=== PATIENT | male | born 1960 | race African-American/Black ===

== ENCOUNTER 2018-06-20 15:58 | Inpatient (IN) | payer MEDICAID, MEDICARE ==
[~2018-06-20] VITALS: Ht 180.3 cm; Wt 80.8 kg
[~2018-06-20 15:58] MED LIST: AMLODIPINE BESY10 MG GT; DIOVAN HCT 1601 EACH PO; IBUPROFEN800 MG PO
--- NOTE | 2018-06-20 16:07 | Emergency Room Report ---
History of Present Illness General Chief Complaint: Fever Source: Medical Record, EMS Present Illness HPI Patient is a 58-year-old male sent in by nursing facility after increased fever as well as the leaking from his urinary catheter. Patient had been noted to have prior history of dilatation. Patient is tracheostomy dependent but does not currently on a ventilator. Patient also was noted to have indwelling [place] catheter which had been leaking. Patient had fever up to 101 started this morning. The patient had been having increased leaking around his catheter. Patient was not noted to be vomiting. History is limited by patient's mental status. Allergies: Coded Allergies: No Known Allergies (Unverified , 12/13/12) Patient History Past Medical History: see triage record Reviewed Nursing Documentation: PMH: Agreed; PSxH: Agreed Nursing Documentation-PMH Hx Cancer: No Hx Gastrointestinal Problems: Yes - GERD, CKD, alcoholic cirrhosis Hx Neurological Problems: Yes Hx Seizures: Yes Hx Numbness: Yes - IN BOTH KNEES AND RADIATES TO BOTH ANKLES Review of Systems All Other Systems: limited - by mental status Physical Exam Vital Signs Date Time Temp Pulse Resp B/P (MAP) Pulse Ox O2 Delivery O2 Flow Rate FiO2 06/20/18 15:40 101 20 108/77 100 T-piece 5.0 General Appearance: no apparent distress, thin, Chronically Ill Eyes: bilateral eye PERRL Neck: limited range of motion, other, tracheotomy Respiratory: no respiratory distress, rhonchi Cardiovascular #1: normal peripheral pulses, regular rate, rhythm Gastrointestinal: normal inspection, non tender, soft Musculoskeletal: decreased range of motion - contracted, heel protector on bilaterally Neurologic: alert, motor weakness, other - nonresponsive Medical Decision Making Diagnostic Impression: Primary Impression: Sepsis Additional Impressions: Pneumonia UTI (urinary tract infection) ER Course Patient presented for fever. Differential diagnosis included wasn't limited to pneumonia, urinary tract infection, drug fever, allergic reaction, sepsis, cholecystitis, among others.Because of complexity of patient's case laboratory testing and imaging studies were ordered.The laboratory testing was notable for markedly elevated white blood count consistent with sepsis. The patient started on IV antibiotics as well as IV fluids. Dr. Frandy Eagle was contacted for inpatient management. Labs Test 06/20/18 16:20 White Blood Count 27.5 K/UL (4.8-10.8) Red Blood Count 3.84 M/UL (4.70-6.10) Hemoglobin 11.2 G/DL (14.2-18.0) Hematocrit 31.8 % (42.0-52.0) Mean Corpuscular Volume 83 FL (80-99) Mean Corpuscular Hemoglobin 29.3 PG (27.0-31.0) Mean Corpuscular Hemoglobin Concent 35.3 G/DL (32.0-36.0) Red Cell Distribution Width 13.7 % (11.6-14.8) Platelet Count 283 K/UL (150-450) Mean Platelet Volume 9.9 FL (6.5-10.1) Neutrophils (%) (Auto) % (45.0-75.0) Lymphocytes (%) (Auto) % (20.0-45.0) Monocytes (%) (Auto) % (1.0-10.0) Eosinophils (%) (Auto) % (0.0-3.0) Basophils (%) (Auto) % (0.0-2.0) Differential Total Cells Counted 100 Neutrophils % (Manual) 89 % (45-75) Lymphocytes % (Manual) 9 % (20-45) Monocytes % (Manual) 2 % (1-10) Eosinophils % (Manual) 0 % (0-3) Basophils % (Manual) 0 % (0-2) Band Neutrophils 0 % (0-8) Platelet Estimate Adequate Platelet Morphology Normal Red Blood Cell Morphology Normal Urine Color Desire Urine Appearance Cloudy Urine pH 9 (4.5-8.0) Urine Specific [place] 1.010 (1.005-1.035) Urine Protein 3+ (NEGATIVE) Urine Glucose (UA) Negative (NEGATIVE) Urine Ketones Negative (NEGATIVE) Urine Blood Negative (NEGATIVE) Urine Nitrite Positive (NEGATIVE) Urine Bilirubin Negative (NEGATIVE) Urine Ictotest Negative (NEGATIVE) Urine Urobilinogen Normal MG/DL (0.0-1.0) Urine Leukocyte Esterase 3+ (NEGATIVE) Urine RBC 2-4 /HPF (0 - 0) Urine WBC 20-30 /HPF (0 - 0) Urine Squamous Epithelial Cells Few /LPF (NONE/OCC) Urine Calcium Phosphate Crystals Few /LPF (NONE) Urine Triple Phosphate Crystals Many /LPF (NONE) Urine Bacteria Moderate /HPF (NONE) Sodium Level 137 MMOL/L (136-145) Potassium Level 4.3 MMOL/L (3.5-5.1) Chloride Level 101 MMOL/L (98-107) Carbon Dioxide Level 32 MMOL/L (21-32) Anion Gap 5 mmol/L (5-15) Blood Urea Nitrogen 38 mg/dL (7-18) Creatinine 1.5 MG/DL (0.55-1.30) Estimat Glomerular Filtration Rate 58.7 mL/min (>60) Glucose Level 118 MG/DL (74-106) Lactic Acid Level 1.80 mmol/L (0.4-2.0) Calcium Level 9.6 MG/DL (8.5-10.1) Phosphorus Level 4.3 MG/DL (2.5-4.9) Magnesium Level 2.1 MG/DL (1.8-2.4) Total Bilirubin 0.3 MG/DL (0.2-1.0) Aspartate Amino Transf (AST/SGOT) 21 U/L (15-37) Alanine Aminotransferase (ALT/SGPT) 39 U/L (12-78) Alkaline Phosphatase 92 U/L (46-116) Total Creatine Kinase 106 U/L (26-308) Creatine Kinase MB < 0.5 NG/ML (0.0-3.6) Creatine Kinase MB Relative Index 0.4 Troponin I 0.000 ng/mL (0.000-0.056) Total Protein 9.4 G/DL (6.4-8.2) Albumin 2.9 G/DL (3.4-5.0) Globulin 6.5 g/dL Albumin/Globulin Ratio 0.4 (1.0-2.7) Last Vital Signs Date Time Temp Pulse Resp B/P (MAP) Pulse Ox O2 Delivery O2 Flow Rate FiO2 06/20/18 15:40 101 20 108/77 100 T-piece 5.0 Status: unchanged Disposition: ADMITTED INPATIENT Pola Lagunas MD Jun 20, 2018 16:07
[2018-06-20 16:31] VITALS: BP 113/86
[2018-06-20] MEDS ORDERED: Vancomycin 1 GM in NS 275 ML IV ONE (16:45)
[2018-06-20] MEDS ORDERED: Cefepime HCl 1 GM in NS 55 ML IV SCH (16:45)
[2018-06-20 16:55] LABS: BILIRUBIN, URINE NEGATIVE (NEGATIVE); COLOR,URINE AMBER; GLUCOSE, URINE (UA) NEGATIVE (NEGATIVE); KETONES,URINE NEGATIVE (NEGATIVE); LEUKOCYTE ESTERASE ,URINE 3+ (NEGATIVE); NITRITE,URINE POSITIVE (NEGATIVE); PH,URINE 9 (4.5-8.0); PROTEIN,URINE 3+ (NEGATIVE); UROBILINOGEN,URINE NORMAL MG/DL (0.0-1.0)
[2018-06-20 16:57] LABS: APPEARANCE,URINE CLOUDY
[2018-06-20 16:59] LABS: HEMATOCRIT 31.8 % (42.0-52.0); HEMOGLOBIN 11.2 G/DL (14.2-18.0); MEAN CORPUSCULAR VOLUME 83 FL (80-99); PLATELET COUNT 283 K/UL (150-450); RED BLOOD COUNT 3.84 M/UL (4.70-6.10); RED CELL DISTRIBUTION WIDTH 13.7 % (11.6-14.8)
[2018-06-20 17:12] LABS: WHITE BLOOD COUNT 27.5 K/UL (4.8-10.8)
[2018-06-20 17:46] LABS: ANION GAP 5 mmol/L (5-15); BLOOD UREA NITROGEN 38 mg/dL (7-18); CALCIUM 9.6 MG/DL (8.5-10.1); CARBON DIOXIDE 32 MMOL/L (21-32); CHLORIDE 101 MMOL/L (98-107); CREATININE 1.5 MG/DL (0.55-1.30); POTASSIUM 4.3 MMOL/L (3.5-5.1); SODIUM 137 MMOL/L (136-145)
[2018-06-20 17:52] LABS: ALANINE AMINOTRANSFERASE 39 U/L (12-78); ALBUMIN 2.9 G/DL (3.4-5.0); ALBUMIN/GLOBULIN RATIO 0.4 (1.0-2.7); ALKALINE PHOSPHATASE 92 U/L (46-116); ASPARTATE AMINO TRANSFERASE 21 U/L (15-37); BILIRUBIN,TOTAL 0.3 MG/DL (0.2-1.0); CKMB < 0.5 NG/ML (0.0-3.6); CREATINE KINASE 106 U/L (26-308); PHOSPHORUS 4.3 MG/DL (2.5-4.9)
[2018-06-20] MEDS ORDERED: FAMOTIDINE20 MG GT (18:06)
[2018-06-20] MEDS ORDERED: ELIQUIS5 MG GT (18:06)
[2018-06-20] MEDS ORDERED: LEVETIRACE100 MG/1 M GT (18:06)
[2018-06-20] MEDS ORDERED: CHLORHEXIDINE473 ML MM (18:06)
[2018-06-20] MEDS ORDERED: ACIDOPHILUS GT (18:06)
[2018-06-20] MEDS ORDERED: ACIDOPHILUS1 EAC7 PO (18:06)
[2018-06-20] MEDS ORDERED: FERROUS SU220 MG/51 GT (18:06)
[2018-06-20] MEDS ORDERED: MAGNESIUM OXID400 M1 GT (18:06)
[2018-06-20] MEDS ORDERED: TYLENOL EXTRA500 MG GT (18:06)
[2018-06-20] MEDS ORDERED: ACETAMINOPHEN325 M1 GT (18:06)
[2018-06-20] MEDS ORDERED: ZOFRAN4 M3 GT (18:06)
[2018-06-20] MEDS ORDERED: CARVEDILOL25 MG GT (18:06)
[2018-06-20] MEDS ORDERED: MULTI-DELYN237 ML GT (18:06)
[2018-06-20] MEDS ORDERED: NORCO 5-325 TA1 EACH GT (18:06)
[2018-06-20] MEDS ORDERED: ASCORBIC ACID500 MG GT (18:06)
[2018-06-20] MEDS ORDERED: CATAPRES0.1 MG GT (18:06)
[2018-06-20 18:38] VITALS: BP 134/88
[2018-06-20 19:22] VITALS: BP 120/76
[2018-06-20] MEDS ORDERED: Acetaminophen 650 MG SUPP RECTAL ONE (19:30)
[2018-06-20 19:45] VITALS: BP 109/78
[2018-06-20] MEDS ORDERED: Miralax 17gm pkt ORAL PRN (20:45)
[2018-06-20] MEDS ORDERED: Morphine Sulfate 2mg/ml Inj IVP PRN (20:53)
[2018-06-20] MEDS ORDERED: Albuterol/Ipratropium 3ml neb HHN PRN (20:53)
[2018-06-20 21:00] VITALS: BP 104/68
[2018-06-20] MEDS ORDERED: IPRATROPIU0.2 MG/1 M HHN (21:04)
[2018-06-20] MEDS ORDERED: Rx Monitoring Vancomycin MISC PRN (21:30)
[2018-06-20] MEDS ORDERED: levETIRAcetam 500mg/5ml Liquid GT SCH (22:00)
[2018-06-20] MEDS: Carvedilol 25mg Tab GT SCH (22:11)
[2018-06-20] MEDS: Heparin 5000 units/ml inj SUBQ SCH (22:51)
[2018-06-21] VITALS (8 sets, daily range): BP systolic 97–127; BP diastolic 70–86
[2018-06-21] MEDS ORDERED: Vancomycin 1 GM in D5W 275 ML IV SCH (00:30)
[2018-06-21 07:46] LABS: HEMATOCRIT 29.9 % (42.0-52.0); HEMOGLOBIN 9.8 G/DL (14.2-18.0); MEAN CORPUSCULAR VOLUME 83 FL (80-99); PLATELET COUNT 283 K/UL (150-450); RED BLOOD COUNT 3.58 M/UL (4.70-6.10); RED CELL DISTRIBUTION WIDTH 13.3 % (11.6-14.8)
--- NOTE | 2018-06-21 07:48 | Consultation ---
History of Present Illness General Date patient seen: Jun 21, 2018 Chief Complaint: Fever Reason for Consultation: Sepsis Present Illness HPI Mr. Torres is a 58 yo male s/p PEG and Trach who was set to the ED from his skilled nursing for fever and leakage from his chronic indwelling urinary catheter. He was found to have a fever early yesterday. He is not verbal so history is limited. He was febrile to 100.6 in the ED and had WBC count of 27.5. His UA was positive and he was started on broad spectrum abx. ID was consulted for sepsis PMHx/PSHx CKD Alcohol abuse Seizures SocHx Lives at a skilled nursing FamHx Unable to obtain due to AMS Allergies: Coded Allergies: No Known Allergies (Unverified , 12/13/12) Medication History Scheduled Amlodipine Besylate* (Amlodipine Besylate*), 10 MG GT DAILY, (Reported) Apixaban (Eliquis), 5 MG GT TWICE A DAY, (Reported) Ascorbic Acid* (Ascorbic Acid*), 500 MG GT DAILY, (Reported) Carvedilol* (Carvedilol*), 25 MG GT TWICE A DAY, (Reported) Chlorhexidine Gluconate (Chlorhexidine Gluconate), 15 ML MM Q12HR, (Reported) Famotidine (Famotidine), 20 MG GT DAILY, (Reported) Ferrous Sulfate (Ferrous Sulfate), 330 MG GT EVERY OTHER DAY, (Reported) Levetiracetam* (Levetiracetam*), 1,000 MG GT TID, (Reported) Magnesium Oxide (Magnesium Oxide), 400 MG GT DAILY, (Reported) Multivitamin Liquid* (Multi-Delyn*), 30 ML GT DAILY, (Reported) Scheduled PRN Acetaminophen* (Acetaminophen 325MG Tablet*), 650 MG GT for Mild Pain (Pain Scale 1-3), (Reported) Acetaminophen* (Tylenol Extra Strength*), 500 MG GT Q6HR PRN for Moderate Pain ( Pain Scale 4-6), (Reported) Clonidine Hcl* (Catapres*), 0.1 MG GT Q8HR PRN for For High Blood Pressure, ( Reported) Hydrocodone Bit/Acetaminophen 5-325* ([place] 5-325*), 1 TAB GT Q4HR PRN for Moderate Breakthru Pain (5-7), (Reported) Ipratropium [place] 0.5MG/2.5ML (Ipratropium [place] 0.5MG/2.5ML), 0.5 MG HHN Q6H PRN for Shortness of Breath, (Reported) Ondansetron* (Zofran*), 4 MG GT for Nausea & Vomiting, (Reported) Miscellaneous Medications Lactobacillus Acidophilus (Acidophilus), 100 MG GT, (Reported) Discontinued Medications Ibuprofen* (Motrin*), 800 MG PO DAILY, (Reported) Discontinued Reason: Pt stopped taking med Lactobacillus Acidophilus (Acidophilus), 1 EACH PO DAILY, (Reported) Discontinued Reason: Pt stopped taking med Valsartan/Hydrochlorothiazide 160-12.5MG (Diovan Hct 160-12.5 Mg Tab), 1 TAB PO DAILY, (Reported) Discontinued Reason: Pt stopped taking med Patient History Healthcare decision maker Resuscitation status Do Not Resuscitate Advanced Directive on File Review of Systems ROS Narrative Unable to obtain due to not verbal Physical Exam Last 24 Hour Vital Signs Date Time Temp Pulse Resp B/P (MAP) Pulse Ox O2 Delivery O2 Flow Rate FiO2 06/21/18 07:32 102.0 116 20 119/85 (96) 100 102.0 06/21/18 04:00 109 06/21/18 04:00 99.0 105 20 127/86 (100) 100 99.0 06/21/18 01:45 T-piece 8.0 30 06/21/18 01:45 99 T-piece 8.0 30 06/21/18 01:44 99 20 T-piece 8.0 30 06/21/18 00:00 103 06/21/18 00:00 97.9 102 20 109/81 (90) 100 97.9 06/20/18 23:23 102 06/20/18 22:11 100 104/68 06/20/18 21:25 Trach Collar 06/20/18 21:00 100.0 100 24 104/68 (80) 95 100.0 06/20/18 20:55 98 20 T-piece 8.0 30 06/20/18 20:46 99 T-piece 8.0 30 06/20/18 20:46 T-piece 8.0 30 06/20/18 20:38 100.6 100 20 109/78 100 Trach Collar 5.0 100.6 06/20/18 19:45 100.6 100 20 109/78 Trach Collar 5.0 100.6 06/20/18 19:23 100.6 06/20/18 19:22 100.6 106 22 120/76 Trach Collar 5.0 100.6 06/20/18 18:38 105 22 134/88 Trach Collar 5.0 06/20/18 16:31 99.3 104 25 113/86 Trach Collar 5.0 99.3 06/20/18 15:40 101 20 108/77 100 T-piece 5.0 Intake and Output 06/20/18 06/21/18 19:00 07:00 Intake Total 55 ml 200 ml Balance 55 ml 200 ml Intake Free Water 150 ml IV Total 55 ml Tube Feeding 50 ml # Voids 5 # Bowel Movements 1 Laboratory Tests Test 06/20/18 16:20 06/21/18 06:40 White Blood Count 27.5 K/UL (4.8-10.8) *H Pending Red Blood Count 3.84 M/UL (4.70-6.10) L Pending Hemoglobin 11.2 G/DL (14.2-18.0) L Pending Hematocrit 31.8 % (42.0-52.0) L Pending Mean Corpuscular Volume 83 FL (80-99) Pending Mean Corpuscular Hemoglobin 29.3 PG (27.0-31.0) Pending Mean Corpuscular Hemoglobin Concent 35.3 G/DL (32.0-36.0) Pending Red Cell Distribution Width 13.7 % (11.6-14.8) Pending Platelet Count 283 K/UL (150-450) Pending Mean Platelet Volume 9.9 FL (6.5-10.1) Pending Neutrophils (%) (Auto) % (45.0-75.0) Pending Lymphocytes (%) (Auto) % (20.0-45.0) Pending Monocytes (%) (Auto) % (1.0-10.0) Pending Eosinophils (%) (Auto) % (0.0-3.0) Pending Basophils (%) (Auto) % (0.0-2.0) Pending Differential Total Cells Counted 100 Neutrophils % (Manual) 89 % (45-75) H Lymphocytes % (Manual) 9 % (20-45) L Monocytes % (Manual) 2 % (1-10) Eosinophils % (Manual) 0 % (0-3) Basophils % (Manual) 0 % (0-2) Band Neutrophils 0 % (0-8) Platelet Estimate Adequate Platelet Morphology Normal Red Blood Cell Morphology Normal Urine Color Desire Urine Appearance Cloudy Urine pH 9 (4.5-8.0) Urine Specific [place] 1.010 (1.005-1.035) Urine Protein 3+ (NEGATIVE) H Urine Glucose (UA) Negative (NEGATIVE) Urine Ketones Negative (NEGATIVE) Urine Blood Negative (NEGATIVE) Urine Nitrite Positive (NEGATIVE) H Urine Bilirubin Negative (NEGATIVE) Urine Ictotest Negative (NEGATIVE) Urine Urobilinogen Normal MG/DL (0.0-1.0) Urine Leukocyte Esterase 3+ (NEGATIVE) H Urine RBC 2-4 /HPF (0 - 0) H Urine WBC 20-30 /HPF (0 - 0) H Urine Squamous Epithelial Cells Few /LPF (NONE/OCC) Urine Calcium Phosphate Crystals Few /LPF (NONE) Urine Triple Phosphate Crystals Many /LPF (NONE) H Urine Bacteria Moderate /HPF (NONE) H Sodium Level 137 MMOL/L (136-145) Pending Potassium Level 4.3 MMOL/L (3.5-5.1) Pending Chloride Level 101 MMOL/L (98-107) Pending Carbon Dioxide Level 32 MMOL/L (21-32) Pending Anion Gap 5 mmol/L (5-15) Blood Urea Nitrogen 38 mg/dL (7-18) H Pending Creatinine 1.5 MG/DL (0.55-1.30) H Pending Estimat Glomerular Filtration Rate 58.7 mL/min (>60) Pending Glucose Level 118 MG/DL (74-106) H Pending Lactic Acid Level 1.80 mmol/L (0.4-2.0) Calcium Level 9.6 MG/DL (8.5-10.1) Pending Phosphorus Level 4.3 MG/DL (2.5-4.9) Magnesium Level 2.1 MG/DL (1.8-2.4) Total Bilirubin 0.3 MG/DL (0.2-1.0) Pending Aspartate Amino Transf (AST/SGOT) 21 U/L (15-37) Pending Alanine Aminotransferase (ALT/SGPT) 39 U/L (12-78) Pending Alkaline Phosphatase 92 U/L (46-116) Pending Total Creatine Kinase 106 U/L (26-308) Creatine Kinase MB < 0.5 NG/ML (0.0-3.6) Creatine Kinase MB Relative Index 0.4 Troponin I 0.000 ng/mL (0.000-0.056) Total Protein 9.4 G/DL (6.4-8.2) H Pending Albumin 2.9 G/DL (3.4-5.0) L Pending Globulin 6.5 g/dL Pending Albumin/Globulin Ratio 0.4 (1.0-2.7) L Height (Feet): 5 Height (Inches): 11.00 Weight (Pounds): 167 Medications Current Medications Medications (Trade) Dose Ordered Sig/Mariel Route PRN Reason Start Time Stop Time Status Last Admin Dose Admin Acetaminophen (Tylenol) 650 mg Q4H PRN ORAL fever 06/20/18 20:53 07/20/18 20:52 Albuterol/ Ipratropium (Albuterol/ Ipratropium) 3 ml Q4H PRN HHN Shortness of Breath 06/20/18 20:53 06/25/18 20:52 Amlodipine Besylate (Norvasc) 10 mg DAILY GT 06/21/18 09:00 07/21/18 08:59 Carvedilol (Coreg) 25 mg Q12H GT 06/20/18 21:00 07/20/18 20:59 Cefepime HCl 2 gm/ Dextrose 110 ml @ 220 mls/hr Q24H IV 06/21/18 15:00 06/28/18 14:59 Heparin Sodium (Porcine) (Heparin 5000 units/ml) 5,000 units EVERY 12 HOURS SUBQ 06/20/18 21:00 07/20/18 20:59 06/20/18 22:51 Levetiracetam (Keppra) 1,000 mg Q12HR GT 06/21/18 09:00 07/21/18 08:59 Morphine Sulfate (Morphine Sulfate) 2 mg Q4H PRN IVP Moderate Pain (Pain Scale 4-6) 06/20/18 20:53 06/27/18 20:52 Ondansetron HCl (Zofran) 4 mg Q6H PRN IVP Nausea & Vomiting 06/20/18 20:53 07/20/18 20:52 Phenazopyridine HCl (Pyridium) 100 mg DAILY PRN ORAL dysuria 06/20/18 21:17 07/20/18 21:16 Polyethylene Glycol (Miralax) 17 gm DAILYPRN PRN ORAL Constipation 06/20/18 20:45 07/20/18 20:44 Temazepam (Restoril) 15 mg HSPRN PRN ORAL Insomnia 06/20/18 21:00 06/27/18 20:59 Vancomycin HCl (Rx Monitoring Vancomycin) 1 ea DAILY PRN MISC PER RX 06/20/18 21:30 07/20/18 21:29 Vancomycin HCl/ Dextrose 250 ml @ 166.667 mls/hr Q24H IVPB 06/21/18 17:00 06/26/18 16:59 Objective Narrative Gen: NAD, Trached on T piece 30% O2 HEENT: NCAT, MMM, PERRL, No Oral lesion, no scleral icterus NECK: full range of motion, supple, no meningismus, No LAD, No JVD LUNGS: CTAB, No W/C, No Accessory muscle use CARDS: Tchycardic, S1, S2, No M/R/G ABD: Soft, NT, ND, No R/G, + BS, PEG in place No erythema or purulence : Lake in place Ext: C/C/E, Pulses 2+ B/L (DP, Rad) NEURO: Not responsive PSYCH: mood/affect normal SKIN: warm/dry, No rashes, sacral ulcer stage 4 (No purulent drainage or cellulitis) Assessment/Plan Assessment/Plan 58 yo male s/p PEG and Trach who was set to the ED from his skilled nursing for fever and leakage from his chronic indwelling urinary catheter. Sepsis Likely 2/2 UTI less likely PNA UA positive CXR read pending 06/20/18 - B/U Cx pending Leukocytosis See above Fever Resolved Non-verbal - Baseline ? CKD Alcohol abuse Seizures Plan: -Continue Cefepime and Vancomycin pending cultures -f/u B/U cultures -Monitor CBC and CMP -Wound care -Supportive care Thank you for this consult. We will continue to follow the patient during this hospitalization. Duke Bauman MD Jun 21, 2018 07:48
[2018-06-21] MEDS ORDERED: Carvedilol 12.5mg tab ONE (08:00)
[2018-06-21] MEDS: Carvedilol 25mg Tab GT SCH ×2 (08:04→21:00)
[2018-06-21] MEDS: Heparin 5000 units/ml inj SUBQ SCH ×2 (08:04→21:02)
[2018-06-21 08:05] LABS: WHITE BLOOD COUNT 24.3 K/UL (4.8-10.8)
[2018-06-21 08:24] LABS: ALANINE AMINOTRANSFERASE 36 U/L (12-78); ALBUMIN 2.8 G/DL (3.4-5.0); ALBUMIN/GLOBULIN RATIO 0.4 (1.0-2.7); ALKALINE PHOSPHATASE 92 U/L (46-116); ANION GAP 10 mmol/L (5-15); ASPARTATE AMINO TRANSFERASE 22 U/L (15-37); BILIRUBIN,TOTAL 0.3 MG/DL (0.2-1.0); BLOOD UREA NITROGEN 32 mg/dL (7-18); CALCIUM 9.5 MG/DL (8.5-10.1); CARBON DIOXIDE 28 MMOL/L (21-32); CHLORIDE 104 MMOL/L (98-107); CREATININE 1.2 MG/DL (0.55-1.30); POTASSIUM 3.8 MMOL/L (3.5-5.1); SODIUM 142 MMOL/L (136-145)
[2018-06-21] MEDS ORDERED: levETIRAcetam 500mg/5ml Liquid GT SCH (09:00)
--- NOTE | 2018-06-21 13:04 | Consultation ---
History of Present Illness General Date patient seen: Jun 21, 2018 Chief Complaint: Fever Reason for Consultation: Sepsis Present Illness HPI 58-year-old male with chronic trach and PEG, [facility] brought in by paramedics with cc of fever as well as the leaking from his urinary catheter. . Patient had fever up to 101 started this morning. History is limited by patient's mental status. Pt diagnosed to have sepsis and admitted to telemetry. Allergies: Coded Allergies: No Known Allergies (Unverified , 12/13/12) Medication History Scheduled Amlodipine Besylate* (Amlodipine Besylate*), 10 MG GT DAILY, (Reported) Apixaban (Eliquis), 5 MG GT TWICE A DAY, (Reported) Ascorbic Acid* (Ascorbic Acid*), 500 MG GT DAILY, (Reported) Carvedilol* (Carvedilol*), 25 MG GT TWICE A DAY, (Reported) Chlorhexidine Gluconate (Chlorhexidine Gluconate), 15 ML MM Q12HR, (Reported) Famotidine (Famotidine), 20 MG GT DAILY, (Reported) Ferrous Sulfate (Ferrous Sulfate), 330 MG GT EVERY OTHER DAY, (Reported) Levetiracetam* (Levetiracetam*), 1,000 MG GT TID, (Reported) Magnesium Oxide (Magnesium Oxide), 400 MG GT DAILY, (Reported) Multivitamin Liquid* (Multi-Delyn*), 30 ML GT DAILY, (Reported) Scheduled PRN Acetaminophen* (Acetaminophen 325MG Tablet*), 650 MG GT for Mild Pain (Pain Scale 1-3), (Reported) Acetaminophen* (Tylenol Extra Strength*), 500 MG GT Q6HR PRN for Moderate Pain ( Pain Scale 4-6), (Reported) Clonidine Hcl* (Catapres*), 0.1 MG GT Q8HR PRN for For High Blood Pressure, ( Reported) Hydrocodone Bit/Acetaminophen 5-325* ([place] 5-325*), 1 TAB GT Q4HR PRN for Moderate Breakthru Pain (5-7), (Reported) Ipratropium Ranger 0.5MG/2.5ML (Ipratropium Ranger 0.5MG/2.5ML), 0.5 MG HHN Q6H PRN for Shortness of Breath, (Reported) Ondansetron* (Zofran*), 4 MG GT for Nausea & Vomiting, (Reported) Miscellaneous Medications Lactobacillus Acidophilus (Acidophilus), 100 MG GT, (Reported) Discontinued Medications Ibuprofen* (Motrin*), 800 MG PO DAILY, (Reported) Discontinued Reason: Pt stopped taking med Lactobacillus Acidophilus (Acidophilus), 1 EACH PO DAILY, (Reported) Discontinued Reason: Pt stopped taking med Valsartan/Hydrochlorothiazide 160-12.5MG (Diovan Hct 160-12.5 Mg Tab), 1 TAB PO DAILY, (Reported) Discontinued Reason: Pt stopped taking med Patient History Healthcare decision maker Resuscitation status Do Not Resuscitate Advanced Directive on File Past Medical/Surgical History Past Medical/Surgical History: (1) Feeding by G-tube (2) Chronic respiratory failure (3) Organic brain syndrome (4) Vegetative state Review of Systems All Other Systems: negative except mentioned in HPI Physical Exam General Appearance: WD/WN Lines, tubes and drains: peripheral HEENT: normocephalic, atraumatic Neck: non-tender, normal alignment Respiratory/Chest: chest wall non-tender, rhonchi - left, rhonchi - right Cardiovascular/Chest: normal peripheral pulses, normal rate Abdomen: normal bowel sounds, non tender Genitourinary/Rectal: normal genital exam Extremities: normal range of motion Neurologic: repairer controller tester II-XII grossly normal Last 24 Hour Vital Signs Date Time Temp Pulse Resp B/P (MAP) Pulse Ox O2 Delivery O2 Flow Rate FiO2 06/21/18 08:37 Trach Collar 8.0 06/21/18 08:19 99.5 06/21/18 08:04 116 119/85 06/21/18 08:04 116 119/85 06/21/18 07:49 102.0 06/21/18 07:42 T-piece 8.0 30 06/21/18 07:42 99 20 T-piece 8.0 30 06/21/18 07:42 100 T-piece 8.0 30 06/21/18 07:32 102.0 116 20 119/85 (96) 100 102.0 06/21/18 07:29 115 06/21/18 04:00 109 06/21/18 04:00 99.0 105 20 127/86 (100) 100 99.0 06/21/18 01:45 T-piece 8.0 30 06/21/18 01:45 99 T-piece 8.0 30 06/21/18 01:44 99 20 T-piece 8.0 30 06/21/18 00:00 103 06/21/18 00:00 97.9 102 20 109/81 (90) 100 97.9 06/20/18 23:23 102 06/20/18 22:11 100 104/68 06/20/18 21:25 Trach Collar 06/20/18 21:00 100.0 100 24 104/68 (80) 95 100.0 06/20/18 20:55 98 20 T-piece 8.0 30 06/20/18 20:46 99 T-piece 8.0 30 06/20/18 20:46 T-piece 8.0 30 06/20/18 20:38 100.6 100 20 109/78 100 Trach Collar 5.0 100.6 06/20/18 19:45 100.6 100 20 109/78 Trach Collar 5.0 100.6 06/20/18 19:23 100.6 06/20/18 19:22 100.6 106 22 120/76 Trach Collar 5.0 100.6 06/20/18 18:38 105 22 134/88 Trach Collar 5.0 06/20/18 16:31 99.3 104 25 113/86 Trach Collar 5.0 99.3 06/20/18 15:40 101 20 108/77 100 T-piece 5.0 Intake and Output 06/20/18 06/21/18 19:00 07:00 Intake Total 55 ml 280 ml Balance 55 ml 280 ml Intake Free Water 150 ml IV Total 55 ml Tube Feeding 130 ml # Voids 5 # Bowel Movements 1 Laboratory Tests Test 06/20/18 16:20 06/21/18 06:40 White Blood Count 27.5 K/UL (4.8-10.8) *H 24.3 K/UL (4.8-10.8) *H Red Blood Count 3.84 M/UL (4.70-6.10) L 3.58 M/UL (4.70-6.10) L Hemoglobin 11.2 G/DL (14.2-18.0) L 9.8 G/DL (14.2-18.0) L Hematocrit 31.8 % (42.0-52.0) L 29.9 % (42.0-52.0) L Mean Corpuscular Volume 83 FL (80-99) 83 FL (80-99) Mean Corpuscular Hemoglobin 29.3 PG (27.0-31.0) 27.5 PG (27.0-31.0) Mean Corpuscular Hemoglobin Concent 35.3 G/DL (32.0-36.0) 32.9 G/DL (32.0-36.0) Red Cell Distribution Width 13.7 % (11.6-14.8) 13.3 % (11.6-14.8) Platelet Count 283 K/UL (150-450) 283 K/UL (150-450) Mean Platelet Volume 9.9 FL (6.5-10.1) 10.2 FL (6.5-10.1) H Neutrophils (%) (Auto) % (45.0-75.0) % (45.0-75.0) Lymphocytes (%) (Auto) % (20.0-45.0) % (20.0-45.0) Monocytes (%) (Auto) % (1.0-10.0) % (1.0-10.0) Eosinophils (%) (Auto) % (0.0-3.0) % (0.0-3.0) Basophils (%) (Auto) % (0.0-2.0) % (0.0-2.0) Differential Total Cells Counted 100 Neutrophils % (Manual) 89 % (45-75) H Pending Lymphocytes % (Manual) 9 % (20-45) L Pending Monocytes % (Manual) 2 % (1-10) Eosinophils % (Manual) 0 % (0-3) Basophils % (Manual) 0 % (0-2) Band Neutrophils 0 % (0-8) Platelet Estimate Adequate Pending Platelet Morphology Normal Pending Red Blood Cell Morphology Normal Urine Color Desire Urine Appearance Cloudy Urine pH 9 (4.5-8.0) Urine Specific [place] 1.010 (1.005-1.035) Urine Protein 3+ (NEGATIVE) H Urine Glucose (UA) Negative (NEGATIVE) Urine Ketones Negative (NEGATIVE) Urine Blood Negative (NEGATIVE) Urine Nitrite Positive (NEGATIVE) H Urine Bilirubin Negative (NEGATIVE) Urine Ictotest Negative (NEGATIVE) Urine Urobilinogen Normal MG/DL (0.0-1.0) Urine Leukocyte Esterase 3+ (NEGATIVE) H Urine RBC 2-4 /HPF (0 - 0) H Urine WBC 20-30 /HPF (0 - 0) H Urine Squamous Epithelial Cells Few /LPF (NONE/OCC) Urine Calcium Phosphate Crystals Few /LPF (NONE) Urine Triple Phosphate Crystals Many /LPF (NONE) H Urine Bacteria Moderate /HPF (NONE) H Sodium Level 137 MMOL/L (136-145) 142 MMOL/L (136-145) Potassium Level 4.3 MMOL/L (3.5-5.1) 3.8 MMOL/L (3.5-5.1) Chloride Level 101 MMOL/L (98-107) 104 MMOL/L (98-107) Carbon Dioxide Level 32 MMOL/L (21-32) 28 MMOL/L (21-32) Anion Gap 5 mmol/L (5-15) 10 mmol/L (5-15) Blood Urea Nitrogen 38 mg/dL (7-18) H 32 mg/dL (7-18) H Creatinine 1.5 MG/DL (0.55-1.30) H 1.2 MG/DL (0.55-1.30) Estimat Glomerular Filtration Rate 58.7 mL/min (>60) > 60 mL/min (>60) Glucose Level 118 MG/DL (74-106) H 109 MG/DL (74-106) H Lactic Acid Level 1.80 mmol/L (0.4-2.0) Calcium Level 9.6 MG/DL (8.5-10.1) 9.5 MG/DL (8.5-10.1) Phosphorus Level 4.3 MG/DL (2.5-4.9) Magnesium Level 2.1 MG/DL (1.8-2.4) Total Bilirubin 0.3 MG/DL (0.2-1.0) 0.3 MG/DL (0.2-1.0) Aspartate Amino Transf (AST/SGOT) 21 U/L (15-37) 22 U/L (15-37) Alanine Aminotransferase (ALT/SGPT) 39 U/L (12-78) 36 U/L (12-78) Alkaline Phosphatase 92 U/L (46-116) 92 U/L (46-116) Total Creatine Kinase 106 U/L (26-308) Creatine Kinase MB < 0.5 NG/ML (0.0-3.6) Creatine Kinase MB Relative Index 0.4 Troponin I 0.000 ng/mL (0.000-0.056) Total Protein 9.4 G/DL (6.4-8.2) H 9.3 G/DL (6.4-8.2) H Albumin 2.9 G/DL (3.4-5.0) L 2.8 G/DL (3.4-5.0) L Globulin 6.5 g/dL 6.5 g/dL Albumin/Globulin Ratio 0.4 (1.0-2.7) L 0.4 (1.0-2.7) L Microbiology Date/Time Source Procedure Growth Status 06/20/18 16:20 Urine,Clean Catch Urine Culture - Preliminary Resulted 06/20/18 22:13 Sacral Wound Gram Stain - Final Resulted 06/20/18 22:13 Sacral Wound Wound Culture Pending Resulted 06/20/18 19:17 Rectal Mucosa Received Height (Feet): 5 Height (Inches): 11.00 Weight (Pounds): 167 Medications Current Medications Medications (Trade) Dose Ordered Sig/Mariel Route PRN Reason Start Time Stop Time Status Last Admin Dose Admin Acetaminophen (Tylenol) 650 mg Q4H PRN ORAL fever 06/20/18 20:53 07/20/18 20:52 06/21/18 07:49 Albuterol/ Ipratropium (Albuterol/ Ipratropium) 3 ml Q4H PRN HHN Shortness of Breath 06/20/18 20:53 06/25/18 20:52 Amlodipine Besylate (Norvasc) 10 mg DAILY GT 06/21/18 09:00 07/21/18 08:59 06/21/18 08:04 Carvedilol (Coreg) 25 mg Q12H GT 06/20/18 21:00 07/20/18 20:59 06/21/18 08:04 Cefepime HCl 2 gm/ Dextrose 110 ml @ 220 mls/hr Q24H IV 06/21/18 15:00 06/28/18 14:59 Heparin Sodium (Porcine) (Heparin 5000 units/ml) 5,000 units EVERY 12 HOURS SUBQ 06/20/18 21:00 07/20/18 20:59 06/21/18 08:04 Levetiracetam (Keppra) 1,000 mg Q12HR GT 06/21/18 09:00 07/21/18 08:59 06/21/18 08:04 Morphine Sulfate (Morphine Sulfate) 2 mg Q4H PRN IVP Moderate Pain (Pain Scale 4-6) 06/20/18 20:53 06/27/18 20:52 Ondansetron HCl (Zofran) 4 mg Q6H PRN IVP Nausea & Vomiting 06/20/18 20:53 07/20/18 20:52 Phenazopyridine HCl (Pyridium) 100 mg DAILY PRN ORAL dysuria 06/20/18 21:17 07/20/18 21:16 Polyethylene Glycol (Miralax) 17 gm DAILYPRN PRN ORAL Constipation 06/20/18 20:45 07/20/18 20:44 Temazepam (Restoril) 15 mg HSPRN PRN ORAL Insomnia 06/20/18 21:00 06/27/18 20:59 Vancomycin HCl (Rx Monitoring Vancomycin) 1 ea DAILY PRN MISC PER RX 06/20/18 21:30 07/20/18 21:29 Vancomycin HCl/ Dextrose 250 ml @ 166.667 mls/hr Q24H IVPB 06/21/18 17:00 06/26/18 16:59 Assessment/Plan Problem List: (1) Sepsis ICD Codes: A41.9 - Sepsis, unspecified organism SNOMED: 84775875 (2) Chronic respiratory failure ICD Codes: J96.10 - Chronic respiratory failure, unspecified whether with hypoxia or hypercapnia SNOMED: 20530963 (3) Organic brain syndrome ICD Codes: F09 - Unspecified mental disorder due to known physiological condition SNOMED: 406087365 (4) UTI (urinary tract infection) ICD Codes: N39.0 - Urinary tract infection, site not specified SNOMED: 35872074 (5) Feeding by G-tube ICD Codes: Z93.1 - Gastrostomy status SNOMED: 436315476, 253344363 (6) Vegetative state ICD Codes: R40.3 - Persistent vegetative state SNOMED: 47907666 Assessment/Plan amaya culture IV abx check electrolytes respiratory treatment titrate fio2 to sat of 92% trach site care continue gtube feeding f/u electrolytes dvt prophylaxis. Stormy Gotti MD Jun 21, 2018 13:04
--- NOTE | 2018-06-21 14:49 | Diagnostic Imaging Report ---
. Indication: Shortness of breath Technique: XRAY Chest 1v Comparison: 12/13/2012 Findings: Heart size within normal limits and stable compared to the prior exam. There is been interval placement of a tracheostomy tube. There is streaky bibasilar airspace opacities which are likely related to subsegmental atelectasis. Developing infiltrate be excluded clinically Impression: * Tracheostomy tube in place. * Streaky bibasilar opacities likely subsegmental atelectasis. Correlate clinically to exclude the possibility of developing infiltrate.
[2018-06-21] MEDS ORDERED: Cefepime HCl 2 GM in D5W 110 ML IV SCH (15:00)
[2018-06-21] MEDS ORDERED: Albuterol/Ipratropium 3ml neb HHN PRN (16:06)
[2018-06-21] MEDS ORDERED: Miralax 17gm pkt ORAL PRN (16:07)
[2018-06-21] MEDS ORDERED: Morphine Sulfate 2mg/ml Inj IVP PRN (17:00)
[2018-06-21] MEDS ORDERED: Vancomycin 1250mg/D5W 250ml 250 ML IVPB SCH (17:00)
--- NOTE | 2018-06-21 17:15 | History and Physical Report ---
DATE OF ADMISSION: 06/20/2018 TIME: 2 p.m. CONSULTANTS: 1. Stormy Gotti M.D. 2. Jonathon Casanova M.D. 3. Rubina Ventura M.D. 4. Jose Patiño M.D. CHIEF COMPLAINT: Respiratory failure, right middle lobe infiltrate, sepsis, leukocytosis, UTI, and altered mental status. BRIEF HISTORY: This is a 58[facility]-old [facility] with history of respiratory failure on trach aerosol, was sent to [facility] last night with history of increased respiratory distress. The patient was found to have fever, UTI, pneumonia, sepsis, and admitted to telemetry for further care. Currently, trach aerosol, sleeping in bed, nonverbal. PAST MEDICAL HISTORY: Includes respiratory failure and organic brain syndrome. PAST SURGICAL HISTORY: G-tube and trach. MEDICATIONS: Include vancomycin, cefepime, amlodipine, , Pyridium, Coreg, albuterol, morphine, and Zofran. ALLERGIES: Denies. SOCIAL HISTORY: Unable to obtain secondary to the patient's condition. REVIEW OF SYSTEMS: Unavailable. OBJECTIVE: GENERAL: Lethargic in bed, trach aerosol, nonverbal. VITAL SIGNS: Temperature is 99, pulse 86, respirations 18, and blood pressure 97/70. CARDIOVASCULAR: No murmur. LUNGS: Poor exchange. ABDOMEN: Bowel sounds distant. EXTREMITIES: No cyanosis, clubbing, or edema. NEUROLOGIC: The patient is flaccid in bed, not following directions. LABORATORY AND DIAGNOSTIC DATA: White count of 24, hemoglobin and hematocrit 9.8/29, and platelets 283. BMP shows BUN 32, glucose 109, otherwise normal. Albumin 2.8. Urinalysis show 3+ leukocyte esterase. ASSESSMENT: 1. Respiratory failure. 2. Pneumonia. 3. UTI. 4. Sepsis. 5. Malnutrition. 6. Altered mental status. 7. OBS. PLAN: Continue previous medications. O2 and pulmonary treatment as needed. Antibiotic per Infectious Disease. Blood pressure control. Dietary followup. OT, PT, dietary evaluation. CBC and BMP in the morning. We will continue to follow the patient medically. Frandy Eagle D.O. DR: MIKEL JOB#: [id number] CC:
--- NOTE | 2018-06-21 20:34 | Consultation ---
Consult Note Consult Note NEUROLOGY CONSULTATION: Full note dictated #[id number] 58 y/o, BM of ?H who has a PH of an unknown type of brain injury, respiratory failure for which he has a tracheostomy, inability to eat as a result of which he has a G-tube and unknown level of cerebral function. He lives in a [place] and was sent to the [facility] ER for a change in MS that was undefined. In the ER he was found to be in respiratory failure, had a right middle lobe infiltrate, had sepsis, a UTI, and altered mental status. ON EXAM: Eyes open but unresponsive to external stimuli. Tonic eye movements to right or left Chewing movements. Moves all 4s minimally on DP but with spastic quadriparesis. IMPRESSION: Severe encephalopathy - unclear as to how much is old and new. Unclear if tonic eye deviation and chewing represents ictal phenomenon or not. REC: Continue present Rx. EEG CT of brain Observe. Stew Patiño M.D., M.S.P.STEW HOLGUIN Jun 21, 2018 20:34
[2018-06-21] MEDS: Vancomycin 1250mg/D5W 250ml 250 ML IVPB SCH (21:03)
[2018-06-21] MEDS: levETIRAcetam 500mg/5ml Liquid GT SCH (21:03)
--- NOTE | 2018-06-21 23:15 | Consultation ---
DATE OF CONSULTATION: 06/21/2018 NEUROLOGY CONSULTATION CONSULTING PHYSICIAN: Jose Patiño M.D. REQUESTING PHYSICIAN: Frandy Eagle D.O. HISTORY: Mr. Napoleon Torres is a 58-year-old, black gentleman, of unknown handedness, who has a past history of an unknown type of brain injury, chronic respiratory failure for which he has a tracheostomy, inability to eat as a result of which he has a gastric tube and unknown level of cerebral function. He lives in a fdc and was sent to the [facility] emergency room for change in mental state that was undefined. In the emergency room, he was found to be in respiratory failure, had a right middle lobe infiltrate, had sepsis, a urinary tract infection and again an altered mental state, again undefined. This consultation was requested to evaluate the patient for his altered mental state. It is unclear as to what his baseline mental status and thus it is unclear as to how altered his state is. The patient himself is nonverbal, unable to communicate, unable to respond and thus no further history could be obtained. PAST MEDICAL HISTORY: Significant for unknown type of brain injury, respiratory failure, inability to be eat and unknown level of cerebral function. FAMILY HISTORY: Unavailable. PERSONAL HISTORY: Home: He lives in fdc. Work: He is unemployed. Habits: None at this point in time. MEDICATIONS: cefepime, Norvasc, vancomycin, carvedilol, heparin, Keppra 1 g q.12 h., vancomycin, morphine p.r.n., Zofran p.r.n., Pyridium, MiraLAX, temazepam, Tylenol and DuoNeb inhaler. PHYSICAL EXAMINATION: GENERAL: He is a well-developed, relatively well-nourished black gentleman, lying in bed with a tracheostomy. VITAL SIGNS: Pulse 84/minute, blood pressure 106/70 mmHg, respirations 18/minute, and temperature 98.6 degrees Fahrenheit. HEAD: Normocephalic and atraumatic. EENT: Examination benign except for tonic eye deviation from one side to the other varying from time to time. NECK: No neck rigidity was observed. NEUROLOGIC EXAMINATION: MENTAL STATUS EXAMINATION: He had his eyes open, but did not respond to any external stimuli. Further mental status testing was impossible. SPEECH: Could not be tested. LANGUAGE: Could not be tested. CRANIAL NERVE EXAMINATION: II: He did not blink to threat. III, IV & : He had tonic eye deviation, either to the right side or the left side lasting for minutes at a time and then shifting. The pupils were 3 mm in diameter and reactive sluggishly to light. V & VII: The corneal reflexes were present bilaterally. VIII: He did not respond to sounds and had no nystagmus. IX & X: The gag reflex was significantly diminished. XI: The sternocleidomastoids and trapezii did not function. XII: The tongue was in the midline. MOTOR SYSTEM: The tone was increased in all four extremities with a significant degree of spasticity. Examination of muscle mass revealed generalized muscle wasting. He also had bilateral knee and ankle contractures. Examination of power could not be performed on individual muscle groups, however, when deep painful stimuli were applied, he moved all four extremities minimally indicating a significant quadriparesis. SENSORY EXAMINATION: He responded appropriately to deep pain with reflex withdrawal. REFLEXES: 2+ and bilaterally symmetrical at the biceps, triceps, brachioradialis, and knees, 0 at both ankles. The plantar responses were extensor bilaterally. COORDINATION, STANCE & GAIT: Could not be tested. DIAGNOSTIC IMPRESSION: 1. Mr. Napoleon Torres is a 58-year-old, black gentleman, of unknown handedness, who has a past history of an unknown type of brain injury. He also has respiratory failure for which he has tracheostomy. He is unable to eat and as a result of that he has a gastrostomy. His level of cerebral function is unknown at his baseline, however at his f[facility], he was noted to have a altered mental state and was sent to the [facility] emergency room where he was found to be in respiratory failure, had right a middle lobe infiltrate, had sepsis and a urinary tract infection. 2. On neurological examination at this time, his eyes are open, but he is unresponsive to any external stimuli. He does exhibit tonic eye movements to the right side followed by the left side. In addition, he also exhibits chewing movements of a relatively constant nature. He moves all four extremities minimally on deep pain and has spastic quadriparesis. His deep tendon reflexes are relatively normal, but his plantar responses are extensor bilaterally. 3. His latest laboratory data revealed that his WBC count is elevated to 24,300. His hemoglobin is low at 9.8 with a left-sided shift. His chemistry panel reveals a glucose elevated to 109 and an albumin low at 2.8. His urinalysis reveals 3+ leukocyte esterase, 2-4 RBCs, and 20-30 WBCs per high-power field. 4. The patient's history, neurological examination, and laboratory data are most compatible with severe encephalopathy, it is unclear as to how much of the encephalopathy is due to old structural brain disease and how much of it is due to the super added infectious and metabolic processes that is ongoing. 5. In addition, it is unclear if his tonic eye deviation and chewing movements represent ictal phenomena or not. RECOMMENDATIONS: 1. Agree with management thus far. 2. Would continue present therapeutic regimen including Keppra. 3. An EEG will be ordered to evaluate the patient for ongoing ictal or interictal phenomena. 4. A CT scan of the brain should be performed to evaluate the patient for the present state of his intracranial pathology. 5. The patient will be observed closely and depending on how he fares over the next day or so, further recommendations will be given. Thank you for entrusting me with the care of Mr. Torres. I shall follow him with you. Jose Patiño M.D., M.S.P.H. DR: TRENTON JOB#: [id number] MTDD
[2018-06-22] VITALS: BP 131/83
[2018-06-22 04:00] VITALS: BP 146/76
[2018-06-22 06:42] LABS: BASOPHILS % (AUTO) 0.6 % (0.0-2.0); EOSINOPHILS % (AUTO) 2.2 % (0.0-3.0); HEMATOCRIT 30.7 % (42.0-52.0); HEMOGLOBIN 9.9 G/DL (14.2-18.0); LYMPHOCYTES % (AUTO) 13.3 % (20.0-45.0); MEAN CORPUSCULAR VOLUME 83 FL (80-99); MONOCYTES % (AUTO) 8.2 % (1.0-10.0); NEUTROPHILS % (AUTO) 75.7 % (45.0-75.0); PLATELET COUNT 252 K/UL (150-450); RED CELL DISTRIBUTION WIDTH 13.2 % (11.6-14.8); WHITE BLOOD COUNT 13.9 K/UL (4.8-10.8)
[2018-06-22 06:44] LABS: INR 1.1 (0.9-1.1)
[2018-06-22 06:52] LABS: ANION GAP 6 mmol/L (5-15); BLOOD UREA NITROGEN 27 mg/dL (7-18); CALCIUM 9.6 MG/DL (8.5-10.1); CARBON DIOXIDE 29 MMOL/L (21-32); CHLORIDE 105 MMOL/L (98-107); CREATININE 1.1 MG/DL (0.55-1.30); POTASSIUM 3.5 MMOL/L (3.5-5.1); SODIUM 140 MMOL/L (136-145)
[2018-06-22 07:31] LABS: % IRON SATURATION 31 % (15-50); IRON 52 ug/dL (50-175); TOTAL IRON BINDING CAPACITY 168 ug/dL (250-450)
[2018-06-22 07:48] LABS: LACTATE DEHYDROGENASE 158 U/L (81-234)
[2018-06-22 08:00] VITALS: BP 142/109
--- NOTE | 2018-06-22 08:55 | Infectious Diseases Prog Note ---
Assessment/Plan Assessment/Plan 58 yo male s/p PEG and Trach who was [facility] the ED [facility] his [facility] for fever and leakage from his chronic indwelling urinary catheter. Sepsis Likely 2/2 UTI less likely PNA UA positive CXR read pending 06/20/18 - B/U Cx pending Leukocytosis See above Fever Resolved Sacral ulcer - Not infected Non-verbal - Baseline ? CKD Alcohol abuse Seizures Plan: -Continue Cefepime # 2/7-10 and Vancomycin #2 - Will D/C vancomycin tomorrow if No GPC in Cultures -f/u B/U cultures -Monitor CBC and CMP -Wound care -Supportive care We will continue to follow the patient during this hospitalization. Subjective Allergies: Coded Allergies: No Known Allergies (Unverified , 12/13/12) Objective Vital Signs Last 24 Hour Vital Signs Date Time Temp Pulse Resp B/P (MAP) Pulse Ox O2 Delivery O2 Flow Rate FiO2 06/22/18 07:44 T-piece 8.0 30 06/22/18 07:44 98 T-piece 8.0 30 06/22/18 07:43 81 20 T-piece 8.0 30 06/22/18 04:00 98.6 92 19 146/76 (99) 99 98.6 06/22/18 01:40 T-piece 8.0 30 06/22/18 01:39 96 T-piece 8.0 30 06/22/18 01:39 84 20 T-piece 8.0 30 06/22/18 00:00 98.8 97 20 131/83 (99) 99 98.8 06/21/18 21:00 84 107/73 06/21/18 21:00 Trach Collar 8.0 06/21/18 20:00 T-piece 8.0 30 06/21/18 20:00 98.9 84 17 103/73 (83) 100 98.9 06/21/18 20:00 89 20 T-piece 8.0 30 06/21/18 20:00 94 T-piece 8.0 30 06/21/18 16:14 98.6 84 18 106/70 (82) 100 98.6 06/21/18 15:09 98.3 87 18 110/73 (85) 100 98.3 06/21/18 13:50 101 20 T-piece 8.0 30 9/17/18 13:50 T-piece 8.0 30 06/21/18 13:50 100 T-piece 8.0 30 06/21/18 12:00 90 06/21/18 12:00 99.0 86 18 97/70 (79) 100 99.0 Height (Feet): 5 Height (Inches): 11.00 Weight (Pounds): 167 Objective Gen: NAD, Trached on T piece 30% O2 HEENT: NCAT, MMM, LUNGS: CTAB, No W/C, No Accessory muscle use CARDS: Tchycardic, S1, S2, No M/R/G ABD: Soft, NT, ND, No R/G, + BS, PEG in place No erythema or purulence : Lake in place Ext: C/C/E, Pulses 2+ B/L (DP, Rad) NEURO: Not responsive SKIN: warm/dry, No rashes, sacral ulcer stage 4 (No purulent drainage or cellulitis) Microbiology Date/Time Source Procedure Growth Status 06/20/18 16:20 Blood Blood Culture - Preliminary NO GROWTH AFTER 24 HOURS Resulted 06/20/18 16:10 Blood Blood Culture - Preliminary NO GROWTH AFTER 24 HOURS Resulted 06/21/18 09:30 Indwelling Cath Urine Culture - Preliminary Gram Negative Bacillus 1 Resulted 06/20/18 16:20 Urine,Clean Catch Urine Culture - Preliminary Gram Negative Bacillus 1 Resulted 06/20/18 22:13 Sacral Wound Gram Stain - Final Resulted 06/20/18 22:13 Sacral Wound Wound Culture Pending Resulted 06/20/18 19:17 Rectal Mucosa Received Laboratory Tests Test 06/22/18 05:40 06/22/18 05:45 White Blood Count 13.9 K/UL (4.8-10.8) H Red Blood Count 3.70 M/UL (4.70-6.10) L Hemoglobin 9.9 G/DL (14.2-18.0) L Hematocrit 30.7 % (42.0-52.0) L Mean Corpuscular Volume 83 FL (80-99) Mean Corpuscular Hemoglobin 26.9 PG (27.0-31.0) L Mean Corpuscular Hemoglobin Concent 32.3 G/DL (32.0-36.0) Red Cell Distribution Width 13.2 % (11.6-14.8) Platelet Count 252 K/UL (150-450) Mean Platelet Volume 10.2 FL (6.5-10.1) H Neutrophils (%) (Auto) 75.7 % (45.0-75.0) H Lymphocytes (%) (Auto) 13.3 % (20.0-45.0) L Monocytes (%) (Auto) 8.2 % (1.0-10.0) Eosinophils (%) (Auto) 2.2 % (0.0-3.0) Basophils (%) (Auto) 0.6 % (0.0-2.0) Erythrocyte Sedimentation Rate 116 MM/HR (0-20) H Reticulocyte Count Pending Prothrombin Time 11.9 SEC (9.30-11.50) H Prothromb Time International Ratio 1.1 (0.9-1.1) Activated Partial Thromboplast Time 24 SEC (23-33) Sodium Level 140 MMOL/L (136-145) Potassium Level 3.5 MMOL/L (3.5-5.1) Chloride Level 105 MMOL/L (98-107) Carbon Dioxide Level 29 MMOL/L (21-32) Anion Gap 6 mmol/L (5-15) Blood Urea Nitrogen 27 mg/dL (7-18) H Creatinine 1.1 MG/DL (0.55-1.30) Estimat Glomerular Filtration Rate > 60 mL/min (>60) Glucose Level 122 MG/DL (74-106) H Calcium Level 9.6 MG/DL (8.5-10.1) Iron Level 52 ug/dL (50-175) Total Iron Binding Capacity 168 ug/dL (250-450) L Percent Iron Saturation 31 % (15-50) Unsaturated Iron Binding 116 ug/dL (112-346) Lactate Dehydrogenase 158 U/L (81-234) Carcinoembryonic Antigen Pending Vitamin B12 Level 1404 PG/ML (193-986) H Folate 65.2 NG/ML (8.6-58.9) H Stool Occult Blood Pending Current Medications Medications (Trade) Dose Ordered Sig/Mariel Route PRN Reason Start Time Stop Time Status Last Admin Dose Admin Acetaminophen (Tylenol) 650 mg Q4H PRN ORAL fever 06/21/18 16:06 07/20/18 16:05 Albuterol/ Ipratropium (Albuterol/ Ipratropium) 3 ml Q4H PRN HHN Shortness of Breath 06/21/18 16:06 06/25/18 16:05 Amlodipine Besylate (Norvasc) 10 mg DAILY GT 06/22/18 09:00 07/21/18 08:59 Carvedilol (Coreg) 25 mg Q12H GT 06/21/18 21:00 07/20/18 20:59 Cefepime HCl 2 gm/ Dextrose 110 ml @ 220 mls/hr Q24H IV 06/22/18 15:00 06/28/18 14:59 Heparin Sodium (Porcine) (Heparin 5000 units/ml) 5,000 units EVERY 12 HOURS SUBQ 06/21/18 21:00 07/20/18 20:59 06/21/18 21:02 Levetiracetam (Keppra) 1,000 mg Q12HR GT 06/21/18 21:00 07/21/18 08:59 06/21/18 21:03 Morphine Sulfate (Morphine Sulfate) 2 mg Q4H PRN IVP Moderate Pain (Pain Scale 4-6) 06/21/18 17:00 06/27/18 20:52 Ondansetron HCl (Zofran) 4 mg Q6H PRN IVP Nausea & Vomiting 06/21/18 16:07 07/20/18 16:06 Phenazopyridine HCl (Pyridium) 100 mg DAILYPRN PRN ORAL dysuria 06/21/18 16:07 07/21/18 16:06 Polyethylene Glycol (Miralax) 17 gm DAILYPRN PRN ORAL Constipation 06/21/18 16:07 07/20/18 16:06 Temazepam (Restoril) 15 mg HSPRN PRN ORAL Insomnia 06/21/18 16:07 06/27/18 16:06 Vancomycin HCl (Rx Monitoring Vancomycin) 1 ea DAILY PRN MISC PER RX 06/22/18 09:00 07/20/18 21:29 Vancomycin HCl/ Dextrose 250 ml @ 166.667 mls/hr Q24H IVPB 06/21/18 17:00 06/26/18 16:59 06/21/18 21:03 Duke Bauman MD Jun 22, 2018 08:55
[2018-06-22] MEDS ORDERED: Rx Monitoring Vancomycin MISC PRN (09:00)
[2018-06-22] MEDS: Carvedilol 25mg Tab GT SCH ×2 (09:50→20:42)
[2018-06-22] MEDS: levETIRAcetam 500mg/5ml Liquid GT SCH ×2 (09:50→20:41)
[2018-06-22] MEDS: Heparin 5000 units/ml inj SUBQ SCH ×2 (09:54→20:56)
--- NOTE | 2018-06-22 10:58 | Diagnostic Imaging Report ---
Indications: Altered level of consciousness Technique: Spiral acquisitions obtained through the brain. Angled axial and coronal 5 x 5 mm slices were reconstructed. Total dose length product 1446.46 mGycm. CTDI vol(s) 70.38 mGy. Dose reduction achieved using automated exposure control Comparison: None. Findings: There is severe extensive cerebral volume loss, with marked dilatation of the sulci and ventricles. There is encephalomalacia of the right occipital lobe extending into the right parasagittal parietal lobe. There is more extensive encephalomalacia of the left occipital lobe extending into the left parasagittal parietal lobe. Some dystrophic calcification is seen in the left occipital lobe. No acute intracranial hemorrhage nor edema, mass effect, nor midline shift. There is diffuse low-attenuation throughout the deep white matter. The calvarium is intact. There is a mucous retention cyst or polyp in the sphenoid sinus. The mastoids are clear. The visualized orbits are unremarkable Impression: Extensive and severe cerebral volume loss, far out of proportion to patient's age. 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
[2018-06-22 12:05] VITALS: BP 123/90
--- NOTE | 2018-06-22 12:24 | Pulmonolgy Critical Care Note ---
Critical Care - Asmt/Plan Problems: (1) Sepsis (2) Chronic respiratory failure (3) UTI (urinary tract infection) (4) Fever (5) Feeding by G-tube (6) Vegetative state (7) Organic brain syndrome Respiratory: monitor respiratory rate, adjust FIO2, CXR Cardiac: continue to monitor HR/BP Renal: F/U I&O, keep IV fluid, check electrolytes Infectious Disease: continue antibiotics Gastrointestinal: continue feedings/current rate Endocrine: monitor blood sugar Hematologic: monitor H/H, transfuse if hgb<8.5 Neurologic: PRN Morphine, keep patient comfortable Affect: PRN ativan Prophylaxis: Protonix, Heparin Notes 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, 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 Discussed with: nurses Critical Care - Objective Last 24 Hour Vital Signs Date Time Temp Pulse Resp B/P (MAP) Pulse Ox O2 Delivery O2 Flow Rate FiO2 06/22/18 12:05 97.9 91 18 123/90 (101) 99 97.9 06/22/18 09:50 112 142/109 06/22/18 09:50 112 142/109 06/22/18 09:00 Trach Collar 8.0 06/22/18 08:00 97.5 112 20 142/109 (120) 99 97.5 06/22/18 07:44 T-piece 8.0 30 06/22/18 07:44 98 T-piece 8.0 30 06/22/18 07:43 81 20 T-piece 8.0 30 06/22/18 04:00 98.6 92 19 146/76 (99) 99 98.6 06/22/18 01:40 T-piece 8.0 30 06/22/18 01:39 96 T-piece 8.0 30 06/22/18 01:39 84 20 T-piece 8.0 30 06/22/18 00:00 98.8 97 20 131/83 (99) 99 98.8 06/21/18 21:00 84 107/73 06/21/18 21:00 Trach Collar 8.0 06/21/18 20:00 T-piece 8.0 30 06/21/18 20:00 98.9 84 17 103/73 (83) 100 98.9 06/21/18 20:00 89 20 T-piece 8.0 30 06/21/18 20:00 94 T-piece 8.0 30 06/21/18 16:14 98.6 84 18 106/70 (82) 100 98.6 06/21/18 15:09 98.3 87 18 110/73 (85) 100 98.3 06/21/18 13:50 101 20 T-piece 8.0 30 06/21/18 13:50 T-piece 8.0 30 06/21/18 13:50 100 T-piece 8.0 30 Status: obtunded Condition: critical HEENT: atraumatic Lungs: clear Abdomen: soft, non-tender, feeding tube Extremities: edema Decubiti: stage Micro: Microbiology Date/Time Source Procedure Growth Status 06/20/18 16:20 Blood Blood Culture - Preliminary Resulted 06/20/18 16:10 Blood Blood Culture - Preliminary NO GROWTH AFTER 24 HOURS Resulted 06/20/18 19:17 Nasal Nares Left MRSA Culture - Final NO METHICILLIN RESISTANT STAPH AUREUS... Complete 06/21/18 09:30 Indwelling Cath Urine Culture - Preliminary Gram Negative Bacillus 1 Resulted 06/20/18 16:20 Urine,Clean Catch Urine Culture - Preliminary Gram Negative Bacillus 1 Resulted 06/20/18 22:13 Sacral Wound Gram Stain - Final Resulted 06/20/18 22:13 Sacral Wound Wound Culture - Preliminary Resulted 06/20/18 19:17 Rectal Mucosa Received Critical Care - Subjective ROS Limited/Unobtainable: No Condition: critical EKG Rhythm: Sinus Rhythm FI02: 30 Sputum Amount: Small Tube Feeding Amount: 65 I&O: Intake and Output 06/21/18 06/22/18 19:00 07:00 Intake Total 130 ml 980.000 ml Balance 130 ml 980.000 ml Intake Free Water 50 ml 150 ml IV Total 250.000 ml Tube Feeding 80 ml 580 ml # Voids 4 # Bowel Movements 1 Labs: Laboratory Tests Test 06/22/18 05:40 06/22/18 05:45 White Blood Count 13.9 K/UL (4.8-10.8) H Red Blood Count 3.70 M/UL (4.70-6.10) L Hemoglobin 9.9 G/DL (14.2-18.0) L Hematocrit 30.7 % (42.0-52.0) L Mean Corpuscular Volume 83 FL (80-99) Mean Corpuscular Hemoglobin 26.9 PG (27.0-31.0) L Mean Corpuscular Hemoglobin Concent 32.3 G/DL (32.0-36.0) Red Cell Distribution Width 13.2 % (11.6-14.8) Platelet Count 252 K/UL (150-450) Mean Platelet Volume 10.2 FL (6.5-10.1) H Neutrophils (%) (Auto) 75.7 % (45.0-75.0) H Lymphocytes (%) (Auto) 13.3 % (20.0-45.0) L Monocytes (%) (Auto) 8.2 % (1.0-10.0) Eosinophils (%) (Auto) 2.2 % (0.0-3.0) Basophils (%) (Auto) 0.6 % (0.0-2.0) Differential Total Cells Counted 100 Neutrophils % (Manual) 57 % (45-75) Lymphocytes % (Manual) 35 % (20-45) Monocytes % (Manual) 7 % (1-10) Eosinophils % (Manual) 1 % (0-3) Basophils % (Manual) 0 % (0-2) Band Neutrophils 0 % (0-8) Platelet Estimate Adequate Platelet Morphology Normal Hypochromasia 2+ Erythrocyte Sedimentation Rate 116 MM/HR (0-20) H Reticulocyte Count Pending Prothrombin Time 11.9 SEC (9.30-11.50) H Prothromb Time International Ratio 1.1 (0.9-1.1) Activated Partial Thromboplast Time 24 SEC (23-33) Sodium Level 140 MMOL/L (136-145) Potassium Level 3.5 MMOL/L (3.5-5.1) Chloride Level 105 MMOL/L (98-107) Carbon Dioxide Level 29 MMOL/L (21-32) Anion Gap 6 mmol/L (5-15) Blood Urea Nitrogen 27 mg/dL (7-18) H Creatinine 1.1 MG/DL (0.55-1.30) Estimat Glomerular Filtration Rate > 60 mL/min (>60) Glucose Level 122 MG/DL (74-106) H Calcium Level 9.6 MG/DL (8.5-10.1) Iron Level 52 ug/dL (50-175) Total Iron Binding Capacity 168 ug/dL (250-450) L Percent Iron Saturation 31 % (15-50) Unsaturated Iron Binding 116 ug/dL (112-346) Lactate Dehydrogenase 158 U/L (81-234) Carcinoembryonic Antigen Pending Vitamin B12 Level 1404 PG/ML (193-986) H Folate 65.2 NG/ML (8.6-58.9) H Stool Occult Blood Positive (NEGATIVE) Stormy Gotti MD Jun 22, 2018 12:24
--- NOTE | 2018-06-22 13:02 | General Progress Note ---
Assessment/Plan Problem List: (1) Malnutrition ICD Codes: E46 - Unspecified protein-calorie malnutrition SNOMED: 81880162 (2) Chronic respiratory failure ICD Codes: J96.10 - Chronic respiratory failure, unspecified whether with hypoxia or hypercapnia SNOMED: 20286954 (3) Organic brain syndrome ICD Codes: F09 - Unspecified mental disorder due to known physiological condition SNOMED: 118417389 (4) Sepsis ICD Codes: A41.9 - Sepsis, unspecified organism SNOMED: 59508323 (5) Feeding by G-tube ICD Codes: Z93.1 - Gastrostomy status SNOMED: 021834680, 432654199 (6) Pneumonia ICD Codes: J18.9 - Pneumonia, unspecified organism SNOMED: 217750744 (7) UTI (urinary tract infection) ICD Codes: N39.0 - Urinary tract infection, site not specified SNOMED: 54522739 Status: unchanged Assessment/Plan pulm tx trach care abx ot pt diet cbc bmp am Subjective Constitutional: Reports: weakness Allergies: Coded Allergies: No Known Allergies (Unverified , 12/13/12) All Systems: reviewed and negative except above Subjective trach aerosol asleep Objective Last 24 Hour Vital Signs Date Time Temp Pulse Resp B/P (MAP) Pulse Ox O2 Delivery O2 Flow Rate FiO2 06/22/18 12:05 97.9 91 18 123/90 (101) 99 97.9 06/22/18 09:50 112 142/109 06/22/18 09:50 112 142/109 06/22/18 09:00 Trach Collar 8.0 06/22/18 08:00 97.5 112 20 142/109 (120) 99 97.5 06/22/18 07:44 T-piece 8.0 30 06/22/18 07:44 98 T-piece 8.0 30 06/22/18 07:43 81 20 T-piece 8.0 30 06/22/18 04:00 98.6 92 19 146/76 (99) 99 98.6 06/22/18 01:40 T-piece 8.0 30 06/22/18 01:39 96 T-piece 8.0 30 06/22/18 01:39 84 20 T-piece 8.0 30 06/22/18 00:00 98.8 97 20 131/83 (99) 99 98.8 06/21/18 21:00 84 107/73 06/21/18 21:00 Trach Collar 8.0 06/21/18 20:00 T-piece 8.0 30 06/21/18 20:00 98.9 84 17 103/73 (83) 100 98.9 06/21/18 20:00 89 20 T-piece 8.0 30 06/21/18 20:00 94 T-piece 8.0 30 06/21/18 16:14 98.6 84 18 106/70 (82) 100 98.6 06/21/18 15:09 98.3 87 18 110/73 (85) 100 98.3 06/21/18 13:50 101 20 T-piece 8.0 30 06/21/18 13:50 T-piece 8.0 30 06/21/18 13:50 100 T-piece 8.0 30 Intake and Output 06/21/18 06/22/18 19:00 07:00 Intake Total 130 ml 980.000 ml Balance 130 ml 980.000 ml Intake Free Water 50 ml 150 ml IV Total 250.000 ml Tube Feeding 80 ml 580 ml # Voids 4 # Bowel Movements 1 Laboratory Tests 06/22/18 05:40: White Blood Count 13.9H, Red Blood Count 3.70L, Hemoglobin 9.9L, Hematocrit 30.7L, Mean Corpuscular Volume 83, Mean Corpuscular Hemoglobin 26.9L, Mean Corpuscular Hemoglobin Concent 32.3, Red Cell Distribution Width 13.2, Platelet Count 252, Mean Platelet Volume 10.2H, Neutrophils (%) (Auto) 75.7H, Lymphocytes (%) (Auto) 13.3L, Monocytes (%) (Auto) 8.2, Eosinophils (%) (Auto) 2.2, Basophils (%) (Auto) 0.6, Differential Total Cells Counted 100, Neutrophils % (Manual) 57, Lymphocytes % (Manual) 35, Monocytes % (Manual) 7, Eosinophils % (Manual) 1, Basophils % (Manual) 0, Band Neutrophils 0, Platelet Estimate Adequate, Platelet Morphology Normal, Hypochromasia 2+, Erythrocyte Sedimentation Rate 116H, Reticulocyte Count [Pending], Prothrombin Time 11.9H, Prothromb Time International Ratio 1.1, Activated Partial Thromboplast Time 24, Sodium Level 140, Potassium Level 3.5, Chloride Level 105, Carbon Dioxide Level 29, Anion Gap 6, Blood Urea Nitrogen 27H, Creatinine 1.1, Estimat Glomerular Filtration Rate > 60, Glucose Level 122H, Calcium Level 9.6, Iron Level 52, Total Iron Binding Capacity 168L, Percent Iron Saturation 31, Unsaturated Iron Binding 116, Lactate Dehydrogenase 158, Carcinoembryonic Antigen [Pending], Vitamin B12 Level 1404H, Folate 65.2H 06/22/18 05:45: Stool Occult Blood Positive Height (Feet): 5 Height (Inches): 11.00 Weight (Pounds): 167 General Appearance: lethargic EENT: normal ENT inspection Neck: normal alignment Cardiovascular: normal peripheral pulses, normal rate, regular rhythm Respiratory/Chest: chest wall non-tender, decreased breath sounds Abdomen: normal bowel sounds, non tender, soft Extremities: normal inspection Edema: no edema noted Arm (L), no edema noted Arm (R), no edema noted Leg (L), no edema noted Leg (R), no edema noted Pedal (L), no edema noted Pedal (R), no edema noted Generalized Neurologic: motor weakness Skin: normal pigmentation, warm/dry Farndy Eagle DO Jun 22, 2018 13:02
--- NOTE | 2018-06-22 14:25 | Cardiology Report ---
APPROVED REPORT EKG Measurement Heart [id number] Sinus tachycardia Nonspecific T wave abnormality Abnormal ECG
[2018-06-22] MEDS: Cefepime HCl 2 GM in D5W 110 ML IV SCH (15:47)
[2018-06-22 16:00] VITALS: BP 115/71
--- NOTE | 2018-06-22 17:23 | Consultation ---
History of Present Illness General Date patient seen: Jun 22, 2018 Chief Complaint: Fever Reason for Consultation: Sepsis Present Illness HPI 58 year old male half-way resident with multiple medical comorbidities admitted for medical care and management of likely urosepsis. upon admission noted to have stage IV sacral decubitus ulcer. Surgery called to evaluate and assist with care and management while in hospital. patient seen ,chart reviewed , patient examined. Allergies: Coded Allergies: No Known Allergies (Unverified , 12/13/12) Medication History Scheduled Amlodipine Besylate* (Amlodipine Besylate*), 10 MG GT DAILY, (Reported) Apixaban (Eliquis), 5 MG GT TWICE A DAY, (Reported) Ascorbic Acid* (Ascorbic Acid*), 500 MG GT DAILY, (Reported) Carvedilol* (Carvedilol*), 25 MG GT TWICE A DAY, (Reported) Chlorhexidine Gluconate (Chlorhexidine Gluconate), 15 ML MM Q12HR, (Reported) Famotidine (Famotidine), 20 MG GT DAILY, (Reported) Ferrous Sulfate (Ferrous Sulfate), 330 MG GT EVERY OTHER DAY, (Reported) Levetiracetam* (Levetiracetam*), 1,000 MG GT TID, (Reported) Magnesium Oxide (Magnesium Oxide), 400 MG GT DAILY, (Reported) Multivitamin Liquid* (Multi-Delyn*), 30 ML GT DAILY, (Reported) Scheduled PRN Acetaminophen* (Acetaminophen 325MG Tablet*), 650 MG GT for Mild Pain (Pain Scale 1-3), (Reported) Acetaminophen* (Tylenol Extra Strength*), 500 MG GT Q6HR PRN for Moderate Pain ( Pain Scale 4-6), (Reported) Clonidine Hcl* (Catapres*), 0.1 MG GT Q8HR PRN for For High Blood Pressure, ( Reported) Hydrocodone Bit/Acetaminophen 5-325* ([place] 5-325*), 1 TAB GT Q4HR PRN for Moderate Breakthru Pain (5-7), (Reported) Ipratropium Adams 0.5MG/2.5ML (Ipratropium Adams 0.5MG/2.5ML), 0.5 MG HHN Q6H PRN for Shortness of Breath, (Reported) Ondansetron* (Zofran*), 4 MG GT for Nausea & Vomiting, (Reported) Miscellaneous Medications Lactobacillus Acidophilus (Acidophilus), 100 MG GT, (Reported) Discontinued Medications Ibuprofen* (Motrin*), 800 MG PO DAILY, (Reported) Discontinued Reason: Pt stopped taking med Lactobacillus Acidophilus (Acidophilus), 1 EACH PO DAILY, (Reported) Discontinued Reason: Pt stopped taking med Valsartan/Hydrochlorothiazide 160-12.5MG (Diovan Hct 160-12.5 Mg Tab), 1 TAB PO DAILY, (Reported) Discontinued Reason: Pt stopped taking med Patient History History Provided By: Medical Record, PMD Healthcare decision maker Resuscitation status Do Not Resuscitate Advanced Directive on File Past Medical/Surgical History Past Medical/Surgical History: (1) Sacral decubitus ulcer, stage III (2) Fever (3) UTI (urinary tract infection) (4) Pneumonia (5) Chronic respiratory failure (6) Organic brain syndrome (7) Vegetative state (8) Feeding by G-tube (9) Sepsis (10) Malnutrition Review of Systems All Other Systems: negative except mentioned in HPI Physical Exam General Appearance: no apparent distress Lines, tubes and drains: other HEENT: other Neck: supple Respiratory/Chest: normal breath sounds, no respiratory distress, no accessory muscle use Cardiovascular/Chest: normal rate, regular rhythm Abdomen: soft, no organomegaly, no mass Genitourinary/Rectal: other Extremities: normal inspection, other Skin Exam: other Last 24 Hour Vital Signs Date Time Temp Pulse Resp B/P (MAP) Pulse Ox O2 Delivery O2 Flow Rate FiO2 06/22/18 16:00 97.9 66 21 115/71 (86) 99 97.9 06/22/18 13:37 T-piece 8.0 30 06/22/18 13:36 100 T-piece 8.0 30 06/22/18 12:05 97.9 91 18 123/90 (101) 99 97.9 06/22/18 09:50 112 142/109 06/22/18 09:50 112 142/109 06/22/18 09:00 Trach Collar 8.0 06/22/18 08:00 97.5 112 20 142/109 (120) 99 97.5 06/22/18 07:44 T-piece 8.0 30 06/22/18 07:44 98 T-piece 8.0 30 06/22/18 07:43 81 20 T-piece 8.0 30 06/22/18 04:00 98.6 92 19 146/76 (99) 99 98.6 06/22/18 01:40 T-piece 8.0 30 06/22/18 01:39 96 T-piece 8.0 30 06/22/18 01:39 84 20 T-piece 8.0 30 06/22/18 00:00 98.8 97 20 131/83 (99) 99 98.8 06/21/18 21:00 84 107/73 06/21/18 21:00 Trach Collar 8.0 06/21/18 20:00 T-piece 8.0 30 06/21/18 20:00 98.9 84 17 103/73 (83) 100 98.9 06/21/18 20:00 89 20 T-piece 8.0 30 06/21/18 20:00 94 T-piece 8.0 30 Intake and Output 06/21/18 06/22/18 19:00 07:00 Intake Total 130 ml 980.000 ml Balance 130 ml 980.000 ml Intake Free Water 50 ml 150 ml IV Total 250.000 ml Tube Feeding 80 ml 580 ml # Voids 4 # Bowel Movements 1 Laboratory Tests Test 06/22/18 05:40 06/22/18 05:45 White Blood Count 13.9 K/UL (4.8-10.8) H Red Blood Count 3.70 M/UL (4.70-6.10) L Hemoglobin 9.9 G/DL (14.2-18.0) L Hematocrit 30.7 % (42.0-52.0) L Mean Corpuscular Volume 83 FL (80-99) Mean Corpuscular Hemoglobin 26.9 PG (27.0-31.0) L Mean Corpuscular Hemoglobin Concent 32.3 G/DL (32.0-36.0) Red Cell Distribution Width 13.2 % (11.6-14.8) Platelet Count 252 K/UL (150-450) Mean Platelet Volume 10.2 FL (6.5-10.1) H Neutrophils (%) (Auto) 75.7 % (45.0-75.0) H Lymphocytes (%) (Auto) 13.3 % (20.0-45.0) L Monocytes (%) (Auto) 8.2 % (1.0-10.0) Eosinophils (%) (Auto) 2.2 % (0.0-3.0) Basophils (%) (Auto) 0.6 % (0.0-2.0) Differential Total Cells Counted 100 Neutrophils % (Manual) 57 % (45-75) Lymphocytes % (Manual) 35 % (20-45) Monocytes % (Manual) 7 % (1-10) Eosinophils % (Manual) 1 % (0-3) Basophils % (Manual) 0 % (0-2) Band Neutrophils 0 % (0-8) Platelet Estimate Adequate Platelet Morphology Normal Hypochromasia 2+ Erythrocyte Sedimentation Rate 116 MM/HR (0-20) H Reticulocyte Count 1.1 % (0.0-2.0) Prothrombin Time 11.9 SEC (9.30-11.50) H Prothromb Time International Ratio 1.1 (0.9-1.1) Activated Partial Thromboplast Time 24 SEC (23-33) Sodium Level 140 MMOL/L (136-145) Potassium Level 3.5 MMOL/L (3.5-5.1) Chloride Level 105 MMOL/L (98-107) Carbon Dioxide Level 29 MMOL/L (21-32) Anion Gap 6 mmol/L (5-15) Blood Urea Nitrogen 27 mg/dL (7-18) H Creatinine 1.1 MG/DL (0.55-1.30) Estimat Glomerular Filtration Rate > 60 mL/min (>60) Glucose Level 122 MG/DL (74-106) H Calcium Level 9.6 MG/DL (8.5-10.1) Iron Level 52 ug/dL (50-175) Total Iron Binding Capacity 168 ug/dL (250-450) L Percent Iron Saturation 31 % (15-50) Unsaturated Iron Binding 116 ug/dL (112-346) Lactate Dehydrogenase 158 U/L (81-234) Carcinoembryonic Antigen Pending Vitamin B12 Level 1404 PG/ML (193-986) H Folate 65.2 NG/ML (8.6-58.9) H Stool Occult Blood Positive (NEGATIVE) Height (Feet): 5 Height (Inches): 11.00 Weight (Pounds): 167 Medications Current Medications Medications (Trade) Dose Ordered Sig/Mariel Route PRN Reason Start Time Stop Time Status Last Admin Dose Admin Acetaminophen (Tylenol) 650 mg Q4H PRN ORAL fever 06/21/18 16:06 07/20/18 16:05 Albuterol/ Ipratropium (Albuterol/ Ipratropium) 3 ml Q4H PRN HHN Shortness of Breath 06/21/18 16:06 06/25/18 16:05 Amlodipine Besylate (Norvasc) 10 mg DAILY GT 06/22/18 09:00 07/21/18 08:59 06/22/18 09:50 Carvedilol (Coreg) 25 mg Q12H GT 06/21/18 21:00 07/20/18 20:59 06/22/18 09:50 Cefepime HCl 2 gm/ Dextrose 110 ml @ 220 mls/hr Q24H IV 06/22/18 15:00 06/28/18 14:59 06/22/18 15:47 Heparin Sodium (Porcine) (Heparin 5000 units/ml) 5,000 units EVERY 12 HOURS SUBQ 06/21/18 21:00 07/20/18 20:59 06/22/18 09:54 Levetiracetam (Keppra) 1,000 mg Q12HR GT 06/21/18 21:00 07/21/18 08:59 06/22/18 09:50 Morphine Sulfate (Morphine Sulfate) 2 mg Q4H PRN IVP Moderate Pain (Pain Scale 4-6) 06/21/18 17:00 06/27/18 20:52 Ondansetron HCl (Zofran) 4 mg Q6H PRN IVP Nausea & Vomiting 06/21/18 16:07 07/20/18 16:06 Phenazopyridine HCl (Pyridium) 100 mg DAILYPRN PRN ORAL dysuria 06/21/18 16:07 07/21/18 16:06 Polyethylene Glycol (Miralax) 17 gm DAILYPRN PRN ORAL Constipation 06/21/18 16:07 07/20/18 16:06 Temazepam (Restoril) 15 mg HSPRN PRN ORAL Insomnia 06/21/18 16:07 06/27/18 16:06 Vancomycin HCl (Rx Monitoring Vancomycin) 1 ea DAILY PRN MISC PER RX 06/22/18 09:00 07/20/18 21:29 Vancomycin HCl/ Dextrose 250 ml @ 166.667 mls/hr Q24H IVPB 06/21/18 17:00 06/26/18 16:59 06/21/18 21:03 Assessment/Plan Problem List: (1) Sepsis ICD Codes: A41.9 - Sepsis, unspecified organism SNOMED: 69492290 (2) Sacral decubitus ulcer, stage IV Assessment & Plan: 58M half-way resident with Stage IV full thickness pressure injury sacrum (L)5.5cm x(W)7.1cm x (D)2.2cm with undermining at 9-1 by 2.6cm at 1o'clock. Wound granular with scattered but trace slough .No odor noted (+) Epibiole at borders along base of wound. Dark borders .Periwound is dry without erythema or induration. Scrotal area red and dry. Pt has indwelling F/C small amt whitish discharge noted from penis Plan: Cleanse Sacral wound with Saline .Apply Nickel thick layer of Plurogel to wound with attention to undermined areas loosely pack with Soft wanda or Loose gauze.Apply Cavilon to Borders.Cover with Biatain drsg Daily and Prn. Surface support Air Fluidized mattress. Reposition at least every 2hours off back. Off-load Heels with Pillow. ICD Codes: L89.154 - Pressure ulcer of sacral region, stage 4 SNOMED: 911656060, [id number] Greg Swift Jun 22, 2018 17:23
[2018-06-22] MEDS: Vancomycin 1250mg/D5W 250ml 250 ML IVPB SCH (17:54)
--- NOTE | 2018-06-22 18:27 | Neurology Progress Note ---
Interim History Interim History Interim History Mr. Torres continues to be unresponsive to external stimuli. He continues to be nonverbal, unable to communicate, and unable to respond in any manner. His eyes are open and he has episodes of tonic deviation of his eyes to one side or the other. He seems to be in a chronic vegetative state. Review of Systems Neuro Review of Systems Unable to obtain. Objective Physical Exam Last Vital Signs Date Time Temp Pulse Resp B/P (MAP) Pulse Ox O2 Delivery O2 Flow Rate FiO2 06/22/18 16:00 97.9 66 21 115/71 (86) 99 97.9 06/22/18 13:37 T-piece 8.0 30 Laboratory Tests Test 06/22/18 05:40 06/22/18 05:45 White Blood Count 13.9 K/UL (4.8-10.8) H Red Blood Count 3.70 M/UL (4.70-6.10) L Hemoglobin 9.9 G/DL (14.2-18.0) L Hematocrit 30.7 % (42.0-52.0) L Mean Corpuscular Volume 83 FL (80-99) Mean Corpuscular Hemoglobin 26.9 PG (27.0-31.0) L Mean Corpuscular Hemoglobin Concent 32.3 G/DL (32.0-36.0) Red Cell Distribution Width 13.2 % (11.6-14.8) Platelet Count 252 K/UL (150-450) Mean Platelet Volume 10.2 FL (6.5-10.1) H Neutrophils (%) (Auto) 75.7 % (45.0-75.0) H Lymphocytes (%) (Auto) 13.3 % (20.0-45.0) L Monocytes (%) (Auto) 8.2 % (1.0-10.0) Eosinophils (%) (Auto) 2.2 % (0.0-3.0) Basophils (%) (Auto) 0.6 % (0.0-2.0) Differential Total Cells Counted 100 Neutrophils % (Manual) 57 % (45-75) Lymphocytes % (Manual) 35 % (20-45) Monocytes % (Manual) 7 % (1-10) Eosinophils % (Manual) 1 % (0-3) Basophils % (Manual) 0 % (0-2) Band Neutrophils 0 % (0-8) Platelet Estimate Adequate Platelet Morphology Normal Hypochromasia 2+ Erythrocyte Sedimentation Rate 116 MM/HR (0-20) H Reticulocyte Count 1.1 % (0.0-2.0) Prothrombin Time 11.9 SEC (9.30-11.50) H Prothromb Time International Ratio 1.1 (0.9-1.1) Activated Partial Thromboplast Time 24 SEC (23-33) Sodium Level 140 MMOL/L (136-145) Potassium Level 3.5 MMOL/L (3.5-5.1) Chloride Level 105 MMOL/L (98-107) Carbon Dioxide Level 29 MMOL/L (21-32) Anion Gap 6 mmol/L (5-15) Blood Urea Nitrogen 27 mg/dL (7-18) H Creatinine 1.1 MG/DL (0.55-1.30) Estimat Glomerular Filtration Rate > 60 mL/min (>60) Glucose Level 122 MG/DL (74-106) H Calcium Level 9.6 MG/DL (8.5-10.1) Iron Level 52 ug/dL (50-175) Total Iron Binding Capacity 168 ug/dL (250-450) L Percent Iron Saturation 31 % (15-50) Unsaturated Iron Binding 116 ug/dL (112-346) Lactate Dehydrogenase 158 U/L (81-234) Carcinoembryonic Antigen Pending Vitamin B12 Level 1404 PG/ML (193-986) H Folate 65.2 NG/ML (8.6-58.9) H Stool Occult Blood Positive (NEGATIVE) Neurologic Exam Objective PHYSICAL EXAMINATION: GENERAL: He is a well-developed, relatively well-nourished black gentleman, lying in bed with a tracheostomy. HEAD: Normocephalic and atraumatic. EENT: Examination benign except for tonic eye deviation from one side to the other varying from time to time. NECK: No neck rigidity was observed. NEUROLOGIC EXAMINATION: MENTAL STATUS EXAMINATION: He had his eyes open, but did not respond to any external stimuli. Further mental status testing was impossible. SPEECH: Could not be tested. LANGUAGE: Could not be tested. CRANIAL NERVE EXAMINATION: II: He did not blink to threat. III, IV & : He had tonic eye deviation, either to the right side or the left side lasting for minutes at a time and then shifting. The pupils were 3 mm in diameter and reactive sluggishly to light. V & VII: The corneal reflexes were present bilaterally. VIII: He did not respond to sounds and had no nystagmus. IX & X: The gag reflex was significantly diminished. XI: The sternocleidomastoids and trapezii did not function. XII: The tongue was in the midline. MOTOR SYSTEM: The tone was increased in all four extremities with a significant degree of spasticity. Examination of muscle mass revealed generalized muscle wasting. He also had bilateral knee and ankle contractures. Examination of power could not be performed on individual muscle groups, however , when deep painful stimuli were applied, he moved all four extremities minimally indicating a significant quadriparesis. SENSORY EXAMINATION: He responded appropriately to deep pain with reflex withdrawal. REFLEXES: 2+ and bilaterally symmetrical at the biceps, triceps, brachioradialis , and knees, 0 at both ankles. The plantar responses were extensor bilaterally. COORDINATION, STANCE & GAIT: Could not be tested. Impression/Recommendations Diagnostic Impression 1. Mr. Napoleon Torres is a 58-year-old, black gentleman, of unknown handedness, who has a past history of an unknown type of brain injury. He also has respiratory failure for which he has tracheostomy. He is unable to eat and as a result of that he has a gastrostomy. His level of cerebral function is unknown at his baseline, however at his jail, he was noted to have a altered mental state and was sent to the [facility] emergency room where he was found to be in respiratory failure, had right a middle lobe infiltrate, had sepsis and a urinary tract infection. 2. He continues to be unresponsive to external stimuli. He continues to be nonverbal, unable to communicate, and unable to respond in any manner. His eyes are open and he has episodes of tonic deviation of his eyes to one side or the other. 3. On neurological examination at this time, his eyes are open, but he is unresponsive to any external stimuli. He does exhibit tonic eye movements to the right side followed by the left side. In addition, he also exhibits chewing movements of a relatively constant nature. He moves all four extremities minimally on deep pain and has spastic quadriparesis. His deep tendon reflexes are relatively normal, but his plantar responses are extensor bilaterally. 4. His laboratory data on my initial evaluation revealed that his WBC count was elevated to 24,300. His hemoglobin was low at 9.8 with a left-sided shift. His chemistry panel revealed a glucose elevated to 109 and an albumin low at 2.8. His urinalysis revealed 3+ leukocyte esterase, 2-4 RBCs, and 20-30 WBCs per high-power field. 5. 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 6. 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 The super added infectious and metabolic processes that are ongoing may also be contributing. He is in a chronic vegetative state. 7. It is unclear if his tonic eye deviation and chewing movements represent ictal phenomena or not. Recommendations 1. Continue present management. 2. Continue present therapeutic regimen including Keppra. 3. Await EEG to evaluate the patient for ongoing ictal or interictal phenomena. 4. Observe. Stew Patiño M.D., M.S.P.STEW HOLGUIN Jun 22, 2018 18:27
[2018-06-22 20:00] VITALS: BP 129/84
[2018-06-22] MEDS ORDERED: Carvedilol 12.5mg tab ONE (20:39)
[2018-06-23] VITALS: BP 131/89
[2018-06-23 04:00] VITALS: BP 138/84
[2018-06-23 06:42] LABS: ANION GAP 7 mmol/L (5-15); BLOOD UREA NITROGEN 33 mg/dL (7-18); CALCIUM 9.6 MG/DL (8.5-10.1); CARBON DIOXIDE 28 MMOL/L (21-32); CHLORIDE 106 MMOL/L (98-107); CREATININE 1.3 MG/DL (0.55-1.30); POTASSIUM 3.6 MMOL/L (3.5-5.1); SODIUM 141 MMOL/L (136-145)
[2018-06-23 08:00] VITALS: BP 131/84
[2018-06-23] MEDS: levETIRAcetam 500mg/5ml Liquid GT SCH ×2 (08:18→20:34)
[2018-06-23] MEDS: Carvedilol 25mg Tab GT SCH ×2 (08:19→20:34)
[2018-06-23] MEDS: Heparin 5000 units/ml inj SUBQ SCH ×2 (08:25→20:39)
[2018-06-23 12:00] VITALS: BP 100/68
--- NOTE | 2018-06-23 12:15 | Infectious Diseases Prog Note ---
Assessment/Plan Assessment/Plan 58 yo male s/p PEG and Trach who was set to the ED from his snf for fever and leakage from his chronic indwelling urinary catheter. Sepsis Likely 2/2 UTI less likely PNA UA positive CXR read pending 06/20/18 - UCx - Proteus 06/20/18 - BCx - CoNS (contaminant) 06/21/19 - UCx - Proteus 06/21/19 - BCx - NGTD Leukocytosis See above Fever - Resolved Sacral ulcer - Not infected Non-verbal - Baseline ? CKD Alcohol abuse Seizures Plan: - D/C Vancomycin #3 -Continue Cefepime # 12/09-10 -Monitor CBC and CMP -Wound care -Supportive care We will continue to follow the patient during this hospitalization. Subjective Allergies: Coded Allergies: No Known Allergies (Unverified , 12/13/12) Subjective Patient afebrile No acute events Objective Vital Signs Last 24 Hour Vital Signs Date Time Temp Pulse Resp B/P (MAP) Pulse Ox O2 Delivery O2 Flow Rate FiO2 06/23/18 09:44 98 T-piece 8.0 30 06/23/18 09:44 T-piece 8.0 30 06/23/18 09:44 97 20 T-piece 8.0 30 06/23/18 09:00 Trach Collar 8.0 06/23/18 08:19 107 131/84 06/23/18 08:19 107 131/84 06/23/18 08:00 98.8 107 19 131/84 (100) 97 98.8 06/23/18 04:00 99.0 101 21 138/84 (102) 98 99.0 06/23/18 01:10 97 T-piece 8.0 30 06/23/18 01:10 T-piece 8.0 30 06/23/18 00:00 98.2 92 22 131/89 (103) 99 98.2 06/22/18 21:00 Trach Collar 8.0 06/22/18 20:42 102 129/84 06/22/18 20:35 104 20 T-piece 8.0 30 06/22/18 20:34 T-piece 8.0 30 06/22/18 20:34 98 T-piece 8.0 30 06/22/18 20:00 97.9 102 20 129/84 (99) 98 97.9 06/22/18 16:00 97.9 66 21 115/71 (86) 99 97.9 06/22/18 13:37 T-piece 8.0 30 06/22/18 13:36 100 T-piece 8.0 30 Height (Feet): 5 Height (Inches): 11.00 Weight (Pounds): 178 Objective Gen: NAD, Laying in bedTrached on T piece 30% O2 HEENT: NCAT, MMM, LUNGS: CTAB, No W CARDS: RRR, S1, S2, No M/R/G ABD: Soft, NT, ND, No R/G, + BS, PEG in place No erythema or purulence : [place] in place Ext: C/C/E, Pulses 2+ B/L (DP, Rad) NEURO: Not responsive SKIN: warm/dry, No rashes, sacral ulcer stage 4 (No purulent drainage or cellulitis) Microbiology Date/Time Source Procedure Growth Status 06/21/18 06:50 Blood Blood Culture - Preliminary NO GROWTH AFTER 24 HOURS Resulted 06/21/18 06:40 Blood Blood Culture - Preliminary NO GROWTH AFTER 24 HOURS Resulted 06/20/18 16:20 Blood Blood Culture - Preliminary Staphylococcus Sp Coag Neg Resulted 06/20/18 16:10 Blood Blood Culture - Preliminary NO GROWTH AFTER 48 HOURS Resulted 06/20/18 19:17 Nasal Nares Left MRSA Culture - Final NO METHICILLIN RESISTANT STAPH AUREUS... Complete 06/22/18 18:18 Stool Clostridium difficile Toxin Assay - Final Complete 06/21/18 09:30 Indwelling Cath Urine Culture - Final Proteus Mirabilis Complete 06/20/18 16:20 Urine,Clean Catch Urine Culture - Final Proteus Mirabilis Complete 06/20/18 22:13 Sacral Wound Gram Stain - Final Resulted 06/20/18 22:13 Wound Culture - Preliminary Gram Negative Bacillus 1 Gram Negative Bacillus 2 Resulted 06/20/18 19:17 Rectal Mucosa - Final NO CARBAPENEM-RESISTANT ENTEROBACTERI... Complete 06/20/18 19:17 Rectal Mucosa VRE Culture - Final Enterococcus Faecium - Vre Complete Laboratory Tests Test 06/23/18 05:15 Sodium Level 141 MMOL/L (136-145) Potassium Level 3.6 MMOL/L (3.5-5.1) Chloride Level 106 MMOL/L (98-107) Carbon Dioxide Level 28 MMOL/L (21-32) Anion Gap 7 mmol/L (5-15) Blood Urea Nitrogen 33 mg/dL (7-18) H Creatinine 1.3 MG/DL (0.55-1.30) Estimat Glomerular Filtration Rate > 60 mL/min (>60) Glucose Level 116 MG/DL (74-106) H Calcium Level 9.6 MG/DL (8.5-10.1) Current Medications Medications (Trade) Dose Ordered Sig/Mariel Route PRN Reason Start Time Stop Time Status Last Admin Dose Admin Acetaminophen (Tylenol) 650 mg Q4H PRN ORAL fever 06/21/18 16:06 07/20/18 16:05 Albuterol/ Ipratropium (Albuterol/ Ipratropium) 3 ml Q4H PRN HHN Shortness of Breath 06/21/18 16:06 06/25/18 16:05 Amlodipine Besylate (Norvasc) 10 mg DAILY GT 06/22/18 09:00 07/21/18 08:59 06/23/18 08:19 Carvedilol (Coreg) 25 mg Q12H GT 06/21/18 21:00 07/20/18 20:59 06/23/18 08:19 Cefepime HCl 2 gm/ Dextrose 110 ml @ 220 mls/hr Q24H IV 06/22/18 15:00 06/28/18 14:59 06/22/18 15:47 Heparin Sodium (Porcine) (Heparin 5000 units/ml) 5,000 units EVERY 12 HOURS SUBQ 06/21/18 21:00 07/20/18 20:59 06/23/18 08:25 Levetiracetam (Keppra) 1,000 mg Q12HR GT 06/21/18 21:00 07/21/18 08:59 06/23/18 08:18 Morphine Sulfate (Morphine Sulfate) 2 mg Q4H PRN IVP Moderate Pain (Pain Scale 4-6) 06/21/18 17:00 06/27/18 20:52 Ondansetron HCl (Zofran) 4 mg Q6H PRN IVP Nausea & Vomiting 06/21/18 16:07 07/20/18 16:06 Phenazopyridine HCl (Pyridium) 100 mg DAILYPRN PRN ORAL dysuria 06/21/18 16:07 07/21/18 16:06 Polyethylene Glycol (Miralax) 17 gm DAILYPRN PRN ORAL Constipation 06/21/18 16:07 07/20/18 16:06 Temazepam (Restoril) 15 mg HSPRN PRN ORAL Insomnia 06/21/18 16:07 06/27/18 16:06 Vancomycin HCl (Rx Monitoring Vancomycin) 1 ea DAILY PRN MISC PER RX 06/22/18 09:00 07/20/18 21:29 Vancomycin HCl/ Dextrose 250 ml @ 166.667 mls/hr Q24H IVPB 06/21/18 17:00 06/26/18 16:59 06/22/18 17:54 Duke Bauman MD Jun 23, 2018 12:15
--- NOTE | 2018-06-23 13:25 | Pulmonology Progress Note ---
Assessment/Plan Problems: (1) Sepsis (2) Chronic respiratory failure (3) Organic brain syndrome (4) UTI (urinary tract infection) (5) Feeding by G-tube (6) Vegetative state Assessment/Plan wbc lower improving afebrile continue cefepime tolerating feeding dvt prophylaxis Subjective ROS Limited/Unobtainable: Yes Constitutional: Reports: no symptoms HEENT: Repors: no symptoms Allergies: Coded Allergies: No Known Allergies (Unverified , 12/13/12) Objective Last 24 Hour Vital Signs Date Time Temp Pulse Resp B/P (MAP) Pulse Ox O2 Delivery O2 Flow Rate FiO2 06/23/18 12:00 99.0 88 18 100/68 (79) 99 99.0 06/23/18 09:44 98 T-piece 8.0 30 06/23/18 09:44 T-piece 8.0 30 06/23/18 09:44 97 20 T-piece 8.0 30 06/23/18 09:00 Trach Collar 8.0 06/23/18 08:19 107 131/84 06/23/18 08:19 107 131/84 06/23/18 08:00 98.8 107 19 131/84 (100) 97 98.8 06/23/18 04:00 99.0 101 21 138/84 (102) 98 99.0 06/23/18 01:10 97 T-piece 8.0 30 06/23/18 01:10 T-piece 8.0 30 06/23/18 00:00 98.2 92 22 131/89 (103) 99 98.2 06/22/18 21:00 Trach Collar 8.0 06/22/18 20:42 102 129/84 06/22/18 20:35 104 20 T-piece 8.0 30 06/22/18 20:34 T-piece 8.0 30 06/22/18 20:34 98 T-piece 8.0 30 06/22/18 20:00 97.9 102 20 129/84 (99) 98 97.9 06/22/18 16:00 97.9 66 21 115/71 (86) 99 97.9 06/22/18 13:37 T-piece 8.0 30 06/22/18 13:36 100 T-piece 8.0 30 Intake and Output 06/22/18 06/23/18 19:00 07:00 Intake Total 815 ml 620 ml Output Total 2 ml Balance 815 ml 618 ml Intake Free Water 100 ml 100 ml Tube Feeding 715 ml 520 ml Output Urine Total 2 ml # Bowel Movements 4 2 General Appearance: WD/WN HEENT: status post trach Respiratory/Chest: chest wall non-tender, lungs clear Cardiovascular: normal peripheral pulses, regular rhythm Abdomen: normal bowel sounds, soft, non tender Genitourinary: normal external genitalia Extremities: no clubbing Skin: no rash, no lesions, no ulcers 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 Complete 06/22/18 18:18 Stool Clostridium difficile Toxin Assay - Final Complete 06/21/18 09:30 Indwelling Cath Urine Culture - Final Proteus Mirabilis Complete 06/20/18 16:20 Urine,Clean Catch Urine Culture - Final Proteus Mirabilis Complete 06/20/18 22:13 Sacral Wound Gram Stain - Final Resulted 06/20/18 22:13 Wound Culture - Preliminary Gram Negative Bacillus 1 Gram Negative Bacillus 2 Resulted 06/20/18 19:17 Rectal Mucosa - Final NO CARBAPENEM-RESISTANT ENTEROBACTERI... Complete 06/20/18 19:17 Rectal Mucosa VRE Culture - Final Enterococcus Faecium - Vre Complete Laboratory Tests 06/23/18 05:15: Sodium Level 141, Potassium Level 3.6, Chloride Level 106, Carbon Dioxide Level 28, Anion Gap 7, Blood Urea Nitrogen 33H, Creatinine 1.3, Estimat Glomerular Filtration Rate > 60, Glucose Level 116H, Calcium Level 9.6 Current Medications Medications (Trade) Dose Ordered Sig/Mariel Route PRN Reason Start Time Stop Time Status Last Admin Dose Admin Acetaminophen (Tylenol) 650 mg Q4H PRN ORAL fever 06/21/18 16:06 07/20/18 16:05 Albuterol/ Ipratropium (Albuterol/ Ipratropium) 3 ml Q4H PRN HHN Shortness of Breath 06/21/18 16:06 06/25/18 16:05 Amlodipine Besylate (Norvasc) 10 mg DAILY GT 06/22/18 09:00 07/21/18 08:59 06/23/18 08:19 Carvedilol (Coreg) 25 mg Q12H GT 06/21/18 21:00 07/20/18 20:59 06/23/18 08:19 Cefepime HCl 2 gm/ Dextrose 110 ml @ 220 mls/hr Q24H IV 06/22/18 15:00 06/28/18 14:59 06/22/18 15:47 Heparin Sodium (Porcine) (Heparin 5000 units/ml) 5,000 units EVERY 12 HOURS SUBQ 06/21/18 21:00 07/20/18 20:59 06/23/18 08:25 Levetiracetam (Keppra) 1,000 mg Q12HR GT 06/21/18 21:00 07/21/18 08:59 06/23/18 08:18 Morphine Sulfate (Morphine Sulfate) 2 mg Q4H PRN IVP Moderate Pain (Pain Scale 4-6) 06/21/18 17:00 06/27/18 20:52 Ondansetron HCl (Zofran) 4 mg Q6H PRN IVP Nausea & Vomiting 06/21/18 16:07 07/20/18 16:06 Phenazopyridine HCl (Pyridium) 100 mg DAILYPRN PRN ORAL dysuria 06/21/18 16:07 07/21/18 16:06 Polyethylene Glycol (Miralax) 17 gm DAILYPRN PRN ORAL Constipation 06/21/18 16:07 07/20/18 16:06 Temazepam (Restoril) 15 mg HSPRN PRN ORAL Insomnia 06/21/18 16:07 06/27/18 16:06 Vancomycin HCl (Rx Monitoring Vancomycin) 1 ea DAILY PRN MISC PER RX 06/22/18 09:00 07/20/18 21:29 Vancomycin HCl/ Dextrose 250 ml @ 166.667 mls/hr Q24H IVPB 06/21/18 17:00 06/26/18 16:59 06/22/18 17:54 Stormy Gotti MD Jun 23, 2018 13:25
--- NOTE | 2018-06-23 14:09 | General Progress Note ---
Assessment/Plan Problem List: (1) Malnutrition ICD Codes: E46 - Unspecified protein-calorie malnutrition SNOMED: 68074324 (2) Chronic respiratory failure ICD Codes: J96.10 - Chronic respiratory failure, unspecified whether with hypoxia or hypercapnia SNOMED: 65938373 (3) Organic brain syndrome ICD Codes: F09 - Unspecified mental disorder due to known physiological condition SNOMED: 448490007 (4) Sepsis ICD Codes: A41.9 - Sepsis, unspecified organism SNOMED: 16157985 (5) Feeding by G-tube ICD Codes: Z93.1 - Gastrostomy status SNOMED: 682369622, 542126213 (6) Pneumonia ICD Codes: J18.9 - Pneumonia, unspecified organism SNOMED: 090118321 (7) UTI (urinary tract infection) ICD Codes: N39.0 - Urinary tract infection, site not specified SNOMED: 98761972 Status: stable, progressing Assessment/Plan pulm tx trach care abx ot pt diet cbc bmp am dc plan if clear Subjective Constitutional: Reports: weakness Allergies: Coded Allergies: No Known Allergies (Unverified , 12/13/12) All Systems: reviewed and negative except above Subjective trach aerosol asleep Objective Last 24 Hour Vital Signs Date Time Temp Pulse Resp B/P (MAP) Pulse Ox O2 Delivery O2 Flow Rate FiO2 06/23/18 12:00 99.0 88 18 100/68 (79) 99 99.0 06/23/18 09:44 98 T-piece 8.0 30 06/23/18 09:44 T-piece 8.0 30 06/23/18 09:44 97 20 T-piece 8.0 30 06/23/18 09:00 Trach Collar 8.0 06/23/18 08:19 107 131/84 06/23/18 08:19 107 131/84 06/23/18 08:00 98.8 107 19 131/84 (100) 97 98.8 06/23/18 04:00 99.0 101 21 138/84 (102) 98 99.0 06/23/18 01:10 97 T-piece 8.0 30 06/23/18 01:10 T-piece 8.0 30 06/23/18 00:00 98.2 92 22 131/89 (103) 99 98.2 06/22/18 21:00 Trach Collar 8.0 06/22/18 20:42 102 129/84 06/22/18 20:35 104 20 T-piece 8.0 30 06/22/18 20:34 T-piece 8.0 30 06/22/18 20:34 98 T-piece 8.0 30 06/22/18 20:00 97.9 102 20 129/84 (99) 98 97.9 06/22/18 16:00 97.9 66 21 115/71 (86) 99 97.9 Intake and Output 06/22/18 06/23/18 19:00 07:00 Intake Total 815 ml 620 ml Output Total 2 ml Balance 815 ml 618 ml Intake Free Water 100 ml 100 ml Tube Feeding 715 ml 520 ml Output Urine Total 2 ml # Bowel Movements 4 2 Laboratory Tests 06/23/18 05:15: Sodium Level 141, Potassium Level 3.6, Chloride Level 106, Carbon Dioxide Level 28, Anion Gap 7, Blood Urea Nitrogen 33H, Creatinine 1.3, Estimat Glomerular Filtration Rate > 60, Glucose Level 116H, Calcium Level 9.6 Height (Feet): 5 Height (Inches): 11.00 Weight (Pounds): 178 General Appearance: lethargic EENT: normal ENT inspection Neck: normal alignment Cardiovascular: normal peripheral pulses, normal rate, regular rhythm Respiratory/Chest: chest wall non-tender, lungs clear, normal breath sounds Abdomen: normal bowel sounds, non tender, soft Extremities: normal inspection Edema: no edema noted Arm (L), no edema noted Arm (R), no edema noted Leg (L), no edema noted Leg (R), no edema noted Pedal (L), no edema noted Pedal (R), no edema noted Generalized Neurologic: motor weakness Skin: normal pigmentation, warm/dry Frandy Eagle DO Jun 23, 2018 14:09
[2018-06-23] MEDS: Cefepime HCl 2 GM in D5W 110 ML IV SCH (15:06)
[2018-06-23 15:55] VITALS: BP 101/53
[2018-06-23] MEDS: Vancomycin 1250mg/D5W 250ml 250 ML IVPB SCH (17:07)
[2018-06-23 20:00] VITALS: BP 119/84
--- NOTE | 2018-06-23 20:14 | Neurology Progress Note ---
Interim History Interim History Interim History Mr. Torres continues to be unresponsive to external stimuli. He continues to be nonverbal, unable to communicate, and unable to respond in any manner. His eyes are open and he has episodes of tonic deviation of his eyes to one side or the other. 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 Review of Systems Neuro Review of Systems Unable to obtain. Objective Physical Exam Last Vital Signs Date Time Temp Pulse Resp B/P (MAP) Pulse Ox O2 Delivery O2 Flow Rate FiO2 06/23/18 19:03 96 T-piece 8.0 30 06/23/18 19:02 92 20 06/23/18 15:55 98.4 101/53 (69) 98.4 Laboratory Tests Test 06/23/18 05:15 06/23/18 16:04 Sodium Level 141 MMOL/L (136-145) Potassium Level 3.6 MMOL/L (3.5-5.1) Chloride Level 106 MMOL/L (98-107) Carbon Dioxide Level 28 MMOL/L (21-32) Anion Gap 7 mmol/L (5-15) Blood Urea Nitrogen 33 mg/dL (7-18) H Creatinine 1.3 MG/DL (0.55-1.30) Estimat Glomerular Filtration Rate > 60 mL/min (>60) Glucose Level 116 MG/DL (74-106) H Calcium Level 9.6 MG/DL (8.5-10.1) Vancomycin Level Trough 14.2 ug/mL (5.0-12.0) H Neurologic Exam Objective PHYSICAL EXAMINATION: GENERAL: He is a well-developed, relatively well-nourished black gentleman, lying in bed with a tracheostomy. HEAD: Normocephalic and atraumatic. EENT: Examination benign except for tonic eye deviation from one side to the other varying from time to time. NECK: No neck rigidity was observed. NEUROLOGIC EXAMINATION: MENTAL STATUS EXAMINATION: He had his eyes open, but did not respond to any external stimuli. Further mental status testing was impossible. SPEECH: Could not be tested. LANGUAGE: Could not be tested. CRANIAL NERVE EXAMINATION: II: He did not blink to threat. III, IV & : He had tonic eye deviation, either to the right side or the left side lasting for minutes at a time and then shifting. The pupils were 3 mm in diameter and reactive sluggishly to light. V & VII: The corneal reflexes were present bilaterally. VIII: He did not respond to sounds and had no nystagmus. IX & X: The gag reflex was significantly diminished. XI: The sternocleidomastoids and trapezii did not function. XII: The tongue was in the midline. MOTOR SYSTEM: The tone was increased in all four extremities with a significant degree of spasticity. Examination of muscle mass revealed generalized muscle wasting. He also had bilateral knee and ankle contractures. Examination of power could not be performed on individual muscle groups, however , when deep painful stimuli were applied, he moved all four extremities minimally indicating a significant quadriparesis. SENSORY EXAMINATION: He responded appropriately to deep pain with reflex withdrawal. REFLEXES: 2+ and bilaterally symmetrical at the biceps, triceps, brachioradialis , and knees, 0 at both ankles. The plantar responses were extensor bilaterally. COORDINATION, STANCE & GAIT: Could not be tested. Impression/Recommendations Diagnostic Impression 1. Mr. Napoleon Torres is a 58-year-old, black gentleman, of unknown handedness, who has a past history of an unknown type of brain injury. He also has respiratory failure for which he has tracheostomy. He is unable to eat and as a result of that he has a gastrostomy. His level of cerebral function is unknown at his baseline, however at his [facility], he was noted to have a altered mental state and was sent to the [facility] emergency room where he was found to be in respiratory failure, had right a middle lobe infiltrate, had sepsis and a urinary tract infection. 2. He continues to be unresponsive to external stimuli. He continues to be nonverbal, unable to communicate, and unable to respond in any manner. His eyes are open and he has episodes of tonic deviation of his eyes to one side or the other. 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 3. On neurological examination at this time, his eyes are open, but he is unresponsive to any external stimuli. He does exhibit tonic eye movements to the right side followed by the left side. In addition, he also exhibits chewing movements of a relatively constant nature. He moves all four extremities minimally on deep pain and has spastic quadriparesis. His deep tendon reflexes are relatively normal, but his plantar responses are extensor bilaterally. 4. His laboratory data on my initial evaluation revealed that his WBC count was elevated to 24,300. His hemoglobin was low at 9.8 with a left-sided shift. His chemistry panel revealed a glucose elevated to 109 and an albumin low at 2.8. His urinalysis revealed 3+ leukocyte esterase, 2-4 RBCs, and 20-30 WBCs per high-power field. 5. 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 6. The EEG revealed very low amplitude slow activity with no reactivity consistent with an unresponsive wakefulness syndrome. 7. 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 The super added infectious and metabolic processes that are ongoing may also be contributing. 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 He is in a chronic vegetative state. 7. It is unclear if his tonic eye deviation and chewing movements represent ictal phenomena or not. Recommendations 1. Continue present management. 2. Continue present therapeutic regimen including Keppra. 3. Consider degree of aggressiveness of care in light of his unresponsive wakefulness syndrome and hopeless prognosis. Stew Patiño M.D., M.S.P.Chao. STEW PATIÑO Jun 23, 2018 20:14
--- NOTE | 2018-06-23 20:45 | Electroencephalogram ---
REQUESTING PHYSICIAN: Frandy Eagle D.O. READING PHYSICIAN: Jose Patiño M.D. PROCEDURE PERFORMED: Electroencephalogram. DATE OF TRACIN06/22/2018 HISTORY: This EEG was performed on a 58-year-old gentleman with a history of a severe brain injury most probably of an anoxic ischemic nature and in addition, seizures. The purpose of this EEG was to evaluate the patient for the degree and type of cerebral dysfunction. TECHNICAL NOTE: This EEG was performed on a [employer] with electrodes placed on the scalp according to the International 10-20 system. [id number] and [id number] montages were used. The EEG was technically satisfactory and was performed while the patient was in an unresponsive state. OBSERVATIONS: In the unresponsive state, very low-amplitude slow activity in the delta and slow theta range was seen. No spontaneous variability was seen. No reactivity to external stimulation was noted. IMPRESSION: This is a severely abnormal EEG characterized by exceedingly low-amplitude slow activity in the delta and theta range with no spontaneous variability or reactivity to external stimulation. COMMENT: This study is consistent with severe encephalopathy consistent with an unresponsive wakefulness syndrome. Jose Patiño M.D., M.S.P.H. : Era JOB#: [id number] MTDD
--- NOTE | 2018-06-23 23:30 | Consultation ---
DATE OF CONSULTATION: 06/23/2018 UROLOGY CONSULTATION CONSULTING PHYSICIAN: Aries Jacob M.D. ATTENDING/REFERRING PHYSICIAN: Frandy Eagle D.O. CHIEF COMPLAINT/HISTORY OF PRESENT ILLNESS: I was asked by Dr. Eagle to evaluate this unfortunate 58-year-old gentleman regarding history of a poorly draining and leaking urethral catheter. Briefly, the patient has history of multiple medical issues including organic brain syndrome and respiratory failure. He is maintained on a chronic ventilator, who presented to the hospital with evidence of sepsis, pneumonia, and urinary tract infection. During the course of his hospitalization today, he was noted to have evidence of urinary leakage around his catheter. As such, I was asked to evaluate the patient. PAST MEDICAL HISTORY: 1. Respiratory failure. 2. Organic brain syndrome. 3. Pneumonia. 4. Decubitus ulceration. 5. Nonverbal status. PAST SURGICAL HISTORY: 1. G-tube placement. 2. Tracheostomy. MEDICATIONS: Please see the chart for current medications and administration details. ALLERGIES: No known drug allergies. SOCIAL HISTORY: Unobtainable due to the patient's mental status. FAMILY HISTORY: Unobtainable due to the patient's mental status. REVIEW OF SYSTEMS: A 14-system review of systems cannot be done as the patient cannot cooperate with questioning. PHYSICAL EXAMINATION: GENERAL: The patient is an older gentleman, somewhat arousable, not oriented, in no obvious distress. HEENT: NC/AT. Oropharynx clear. NECK: Supple. Trach site clean, dry, and intact. CHEST: Within normal limits. ABDOMEN: Soft. G-tube in place. Clean, dry, intact. Nontender, nondistended. EXTREMITIES: Warm. Well perfused. No cyanosis, clubbing, or edema. BACK: No CVA tenderness to percussion appreciable. NEUROLOGIC: Deferred as the patient cannot cooperate with the exam. Of note, the patient is nonverbal. GENITOURINARY: Reveals a circumcised male phallus with a Lake catheter in place with scant output. There are bilateral descended testes and cord structures. No masses or tenderness to palpation. LABORATORY DATA: White blood cell count 13.9, hematocrit 30.7, platelets 252,000. PT 11.9, INR 1.1, PTT 24. Sodium 141, potassium 3.6, chloride 106, bicarbonate 28, BUN 33, creatinine 1.3, glucose 116, calcium 9.6. LFTs within normal limits. Urinalysis, specific gravity 1.010, pH 9.0. Dip test notable for 3+ protein, positive nitrites, and 3+ leukocyte esterase. Microanalysis with 2-4 red blood cells per high-power field, 20-30 white blood cells per high-power field, moderate bacteria seen. Urine culture with Proteus mirabilis, 10,000-20,000. Blood cultures, no growth. culture with VREF. C. difficile negative. DIAGNOSTIC IMAGING: Chest x-ray with tracheostomy tube in place, streaky bibasilar opacities likely subsegmental atelectasis. Head CT with extensive and severe cerebral volume loss far out of proportion to the patient's age, ventriculomegaly, hydrocephalus, encephalomalacia, extensive periventricular deep white matter low-attenuation ischemic changes. ASSESSMENT AND PLAN: In summary, the patient is a 58-year-old gentleman with history of organic brain syndrome. He is unfortunately in chronic respiratory failure and lives on a ventilator. He presented to the hospital with evidence of sepsis, possible pneumonia, and urinary tract infection. He also has a decubitus ulceration. His Lake catheter stopped draining well today and was noted to be leaking. Physical exam reveals a nonverbal, vegetative patient with a Lake catheter in place. Laboratory data is notable for an elevated white blood cell count which is decreased and evidence of multiple infections on cultures including Proteus mirabilis in the patient's urine. There is no relevant imaging. Today at the bedside, I tried to irrigate the patient's catheter. It did not irrigate at all indicating that it was clogged. This explained what was happening as the clogged catheter was not draining and was forcing the bladder to remain full. The full bladder was overflowing around the catheter and leaking around it. As such, the catheter was removed and replaced with a new one. This returned clear yellow urine output. It was hand-irrigated and irrigated easily now indicating good position within the bladder and no further clog. It was inflated and left to gravity drainage and promptly drained a significant amount of urine. Thank you for allowing me to participate in the care of this unfortunate gentleman. Please do not hesitate to contact me with any questions that you may further have regarding his care. I will be happy to see him with you on an as-needed basis. Aries Jacob M.D. DR: Elvira JOB#: [id number] CC:
[2018-06-24] VITALS: BP 106/70
[2018-06-24 04:00] VITALS: BP 121/78
[2018-06-24 06:47] LABS: BASOPHILS % (AUTO) 0.6 % (0.0-2.0); EOSINOPHILS % (AUTO) 3.1 % (0.0-3.0); HEMATOCRIT 31.4 % (42.0-52.0); HEMOGLOBIN 10.1 G/DL (14.2-18.0); LYMPHOCYTES % (AUTO) 14.6 % (20.0-45.0); MEAN CORPUSCULAR VOLUME 84 FL (80-99); MONOCYTES % (AUTO) 7.4 % (1.0-10.0); NEUTROPHILS % (AUTO) 74.3 % (45.0-75.0); PLATELET COUNT 239 K/UL (150-450); RED BLOOD COUNT 3.75 M/UL (4.70-6.10); RED CELL DISTRIBUTION WIDTH 13.3 % (11.6-14.8); WHITE BLOOD COUNT 12.9 K/UL (4.8-10.8)
[2018-06-24 07:27] LABS: ANION GAP 11 mmol/L (5-15); BLOOD UREA NITROGEN 33 mg/dL (7-18); CALCIUM 9.6 MG/DL (8.5-10.1); CARBON DIOXIDE 24 MMOL/L (21-32); CHLORIDE 108 MMOL/L (98-107); CREATININE 1.1 MG/DL (0.55-1.30); POTASSIUM 3.3 MMOL/L (3.5-5.1); SODIUM 143 MMOL/L (136-145)
[2018-06-24 08:00] VITALS: BP 110/71
[2018-06-24] MEDS: levETIRAcetam 500mg/5ml Liquid GT SCH ×2 (08:35→20:55)
[2018-06-24] MEDS: Heparin 5000 units/ml inj SUBQ SCH ×2 (08:41→20:58)
[2018-06-24] MEDS: Carvedilol 25mg Tab GT SCH ×2 (08:44→20:54)
--- NOTE | 2018-06-24 09:45 | Infectious Diseases Prog Note ---
Assessment/Plan Assessment/Plan 58 yo male s/p PEG and Trach who [facility] and leakage from his chronic indwelling urinary catheter. Sepsis Likely 2/2 UTI less likely PNA UA positive CXR read pending 06/20/18 - UCx - Proteus 06/20/18 - BCx - CoNS (contaminant) 06/21/19 - UCx - Proteus 06/21/19 - BCx - NGTD Leukocytosis See above Fever - Resolved Sacral ulcer - Not infected Non-verbal - Baseline ? CKD Alcohol abuse Seizures Plan: - D/C Vancomycin #3 -Continue Cefepime # 4/10 - (End date 06/30/18) -Monitor CBC and CMP -Wound care -Supportive care We will continue to follow the patient during this hospitalization. Subjective Allergies: Coded Allergies: No Known Allergies (Unverified , 12/13/12) Subjective Stable over night Patient afebrile Objective Vital Signs Last 24 Hour Vital Signs Date Time Temp Pulse Resp B/P (MAP) Pulse Ox O2 Delivery O2 Flow Rate FiO2 06/24/18 09:00 Trach Collar 8.0 06/24/18 08:44 64 110/71 06/24/18 08:36 64 110/71 06/24/18 08:00 98.1 64 18 110/71 (84) 99 98.1 06/24/18 07:26 T-piece 8.0 30 06/24/18 07:26 99 T-piece 8.0 30 06/24/18 07:26 64 20 T-piece 8.0 30 06/24/18 04:00 98.0 90 20 121/78 (92) 98 98.0 06/24/18 01:00 96 T-piece 8.0 30 06/24/18 01:00 T-piece 8.0 30 06/24/18 00:00 97.3 86 21 106/70 (82) 97 97.3 06/23/18 22:00 Trach Collar 8.0 06/23/18 21:00 Trach Collar 8.0 06/23/18 20:34 86 119/84 06/23/18 20:00 97.9 86 20 119/84 (96) 100 97.9 06/23/18 19:03 96 T-piece 8.0 30 06/23/18 19:03 T-piece 8.0 30 06/23/18 19:02 92 20 T-piece 8.0 30 06/23/18 15:55 98.4 64 18 101/53 (69) 98 98.4 06/23/18 13:30 T-piece 8.0 30 06/23/18 13:30 98 T-piece 8.0 30 06/23/18 12:00 99.0 88 18 100/68 (79) 99 99.0 06/23/18 09:44 98 T-piece 8.0 30 06/23/18 09:44 T-piece 8.0 30 06/23/18 09:44 97 20 T-piece 8.0 30 Height (Feet): 5 Height (Inches): 11.00 Weight (Pounds): 178 Objective Gen: Trached on T piece 30% O2 HEENT: NCAT, MMM, LUNGS: CTAB, No W CARDS: RRR, S1, S2, No M/R/G ABD: Soft, NT, ND, No R/G, + BS, PEG in place No erythema or purulence : Lake in place Ext: C/C/E, Pulses 2+ B/L (DP, Rad) NEURO: Not responsive Microbiology Date/Time Source Procedure Growth Status 06/22/18 18:18 Stool Clostridium difficile Toxin Assay - Final Complete Laboratory Tests Test 06/23/18 16:04 06/24/18 06:28 Vancomycin Level Trough 14.2 ug/mL (5.0-12.0) H White Blood Count 12.9 K/UL (4.8-10.8) H Red Blood Count 3.75 M/UL (4.70-6.10) L Hemoglobin 10.1 G/DL (14.2-18.0) L Hematocrit 31.4 % (42.0-52.0) L Mean Corpuscular Volume 84 FL (80-99) Mean Corpuscular Hemoglobin 26.9 PG (27.0-31.0) L Mean Corpuscular Hemoglobin Concent 32.2 G/DL (32.0-36.0) Red Cell Distribution Width 13.3 % (11.6-14.8) Platelet Count 239 K/UL (150-450) Mean Platelet Volume 9.9 FL (6.5-10.1) Neutrophils (%) (Auto) 74.3 % (45.0-75.0) Lymphocytes (%) (Auto) 14.6 % (20.0-45.0) L Monocytes (%) (Auto) 7.4 % (1.0-10.0) Eosinophils (%) (Auto) 3.1 % (0.0-3.0) H Basophils (%) (Auto) 0.6 % (0.0-2.0) Sodium Level 143 MMOL/L (136-145) Potassium Level 3.3 MMOL/L (3.5-5.1) L Chloride Level 108 MMOL/L (98-107) H Carbon Dioxide Level 24 MMOL/L (21-32) Anion Gap 11 mmol/L (5-15) Blood Urea Nitrogen 33 mg/dL (7-18) H Creatinine 1.1 MG/DL (0.55-1.30) Estimat Glomerular Filtration Rate > 60 mL/min (>60) Glucose Level 111 MG/DL (74-106) H Calcium Level 9.6 MG/DL (8.5-10.1) Current Medications Medications (Trade) Dose Ordered Sig/Mariel Route PRN Reason Start Time Stop Time Status Last Admin Dose Admin Acetaminophen (Tylenol) 650 mg Q4H PRN ORAL fever 06/21/18 16:06 07/20/18 16:05 Albuterol/ Ipratropium (Albuterol/ Ipratropium) 3 ml Q4H PRN HHN Shortness of Breath 06/21/18 16:06 06/25/18 16:05 Amlodipine Besylate (Norvasc) 10 mg DAILY GT 06/22/18 09:00 07/21/18 08:59 06/24/18 08:36 Carvedilol (Coreg) 25 mg Q12H GT 06/21/18 21:00 07/20/18 20:59 06/24/18 08:44 Cefepime HCl 2 gm/ Dextrose 110 ml @ 220 mls/hr Q24H IV 06/22/18 15:00 06/28/18 14:59 06/23/18 15:06 Heparin Sodium (Porcine) (Heparin 5000 units/ml) 5,000 units EVERY 12 HOURS SUBQ 06/21/18 21:00 07/20/18 20:59 06/24/18 08:41 Levetiracetam (Keppra) 1,000 mg Q12HR GT 06/21/18 21:00 07/21/18 08:59 06/24/18 08:35 Morphine Sulfate (Morphine Sulfate) 2 mg Q4H PRN IVP Moderate Pain (Pain Scale 4-6) 06/21/18 17:00 06/27/18 20:52 Ondansetron HCl (Zofran) 4 mg Q6H PRN IVP Nausea & Vomiting 06/21/18 16:07 07/20/18 16:06 Phenazopyridine HCl (Pyridium) 100 mg DAILYPRN PRN ORAL dysuria 06/21/18 16:07 07/21/18 16:06 Polyethylene Glycol (Miralax) 17 gm DAILYPRN PRN ORAL Constipation 06/21/18 16:07 07/20/18 16:06 Temazepam (Restoril) 15 mg HSPRN PRN ORAL Insomnia 06/21/18 16:07 06/27/18 16:06 Vancomycin HCl (Rx Monitoring Vancomycin) 1 ea DAILY PRN MISC PER RX 06/22/18 09:00 07/20/18 21:29 Vancomycin HCl/ Dextrose 250 ml @ 166.667 mls/hr Q24H IVPB 06/21/18 17:00 06/26/18 16:59 06/23/18 17:07 Duke Bauman MD Jun 24, 2018 09:45
[2018-06-24 12:00] VITALS: BP 101/73
--- NOTE | 2018-06-24 14:03 | Pulmonology Progress Note ---
Assessment/Plan Problems: (1) Sepsis (2) Chronic respiratory failure (3) Organic brain syndrome (4) UTI (urinary tract infection) (5) Feeding by G-tube (6) Vegetative state Assessment/Plan wbc going lower seen by urologist improving afebrile continue cefepime tolerating feeding dvt prophylaxis Subjective ROS Limited/Unobtainable: No Constitutional: Reports: no symptoms HEENT: Repors: no symptoms Respiratory: Reports: no symptoms Allergies: Coded Allergies: No Known Allergies (Unverified , 12/13/12) Objective Last 24 Hour Vital Signs Date Time Temp Pulse Resp B/P (MAP) Pulse Ox O2 Delivery O2 Flow Rate FiO2 06/24/18 13:22 97 T-piece 8.0 30 06/24/18 13:22 T-piece 8.0 30 06/24/18 12:00 97.7 85 20 101/73 (82) 100 97.7 06/24/18 09:00 Trach Collar 8.0 06/24/18 08:44 64 110/71 06/24/18 08:36 64 110/71 06/24/18 08:00 98.1 64 18 110/71 (84) 99 98.1 06/24/18 07:26 T-piece 8.0 30 06/24/18 07:26 99 T-piece 8.0 30 06/24/18 07:26 64 20 T-piece 8.0 30 06/24/18 04:00 98.0 90 20 121/78 (92) 98 98.0 06/24/18 01:00 96 T-piece 8.0 30 06/24/18 01:00 T-piece 8.0 30 06/24/18 00:00 97.3 86 21 106/70 (82) 97 97.3 06/23/18 22:00 Trach Collar 8.0 06/23/18 21:00 Trach Collar 8.0 06/23/18 20:34 86 119/84 06/23/18 20:00 97.9 86 20 119/84 (96) 100 97.9 06/23/18 19:03 96 T-piece 8.0 30 06/23/18 19:03 T-piece 8.0 30 06/23/18 19:02 92 20 T-piece 8.0 30 06/23/18 15:55 98.4 64 18 101/53 (69) 98 98.4 Intake and Output 06/23/18 06/24/18 19:00 07:00 Intake Total 1216.667 ml 620 ml Output Total 1200 ml Balance 1216.667 ml -580 ml Intake Free Water 160 ml 100 ml IV Total 276.667 ml Tube Feeding 780 ml 520 ml Output Urine Total 1200 ml # Bowel Movements 2 2 General Appearance: WD/WN HEENT: normocephalic Respiratory/Chest: chest wall non-tender, lungs clear Cardiovascular: normal peripheral pulses, normal rate Abdomen: normal bowel sounds, no organomegaly Extremities: no cyanosis, no clubbing Skin: no rash Microbiology Date/Time Source Procedure Growth Status 06/22/18 18:18 Stool Clostridium difficile Toxin Assay - Final Complete Laboratory Tests 06/23/18 16:04: Vancomycin Level Trough 14.2H 06/24/18 06:28: White Blood Count 12.9H, Red Blood Count 3.75L, Hemoglobin 10.1L, Hematocrit 31.4L, Mean Corpuscular Volume 84, Mean Corpuscular Hemoglobin 26.9L, Mean Corpuscular Hemoglobin Concent 32.2, Red Cell Distribution Width 13.3, Platelet Count 239, Mean Platelet Volume 9.9, Neutrophils (%) (Auto) 74.3, Lymphocytes (% ) (Auto) 14.6L, Monocytes (%) (Auto) 7.4, Eosinophils (%) (Auto) 3.1H, Basophils (%) (Auto) 0.6, Sodium Level 143, Potassium Level 3.3L, Chloride Level 108H, Carbon Dioxide Level 24, Anion Gap 11, Blood Urea Nitrogen 33H, Creatinine 1.1, Estimat Glomerular Filtration Rate > 60, Glucose Level 111H, Calcium Level 9.6 Current Medications Medications (Trade) Dose Ordered Sig/Mariel Route PRN Reason Start Time Stop Time Status Last Admin Dose Admin Acetaminophen (Tylenol) 650 mg Q4H PRN ORAL fever 06/21/18 16:06 07/20/18 16:05 Albuterol/ Ipratropium (Albuterol/ Ipratropium) 3 ml Q4H PRN HHN Shortness of Breath 06/21/18 16:06 06/25/18 16:05 Amlodipine Besylate (Norvasc) 10 mg DAILY GT 06/22/18 09:00 07/21/18 08:59 9/20/18 08:36 Carvedilol (Coreg) 25 mg Q12H GT 06/21/18 21:00 07/20/18 20:59 06/24/18 08:44 Cefepime HCl 2 gm/ Dextrose 110 ml @ 220 mls/hr Q24H IV 06/22/18 15:00 06/28/18 14:59 06/23/18 15:06 Heparin Sodium (Porcine) (Heparin 5000 units/ml) 5,000 units EVERY 12 HOURS SUBQ 06/21/18 21:00 07/20/18 20:59 06/24/18 08:41 Levetiracetam (Keppra) 1,000 mg Q12HR GT 06/21/18 21:00 07/21/18 08:59 06/24/18 08:35 Morphine Sulfate (Morphine Sulfate) 2 mg Q4H PRN IVP Moderate Pain (Pain Scale 4-6) 06/21/18 17:00 06/27/18 20:52 Ondansetron HCl (Zofran) 4 mg Q6H PRN IVP Nausea & Vomiting 06/21/18 16:07 07/20/18 16:06 Phenazopyridine HCl (Pyridium) 100 mg DAILYPRN PRN ORAL dysuria 06/21/18 16:07 07/21/18 16:06 Polyethylene Glycol (Miralax) 17 gm DAILYPRN PRN ORAL Constipation 06/21/18 16:07 07/20/18 16:06 Temazepam (Restoril) 15 mg HSPRN PRN ORAL Insomnia 06/21/18 16:07 06/27/18 16:06 Stormy Gotti MD Jun 24, 2018 14:03
--- NOTE | 2018-06-24 15:32 | General Progress Note ---
Assessment/Plan Problem List: (1) Malnutrition ICD Codes: E46 - Unspecified protein-calorie malnutrition SNOMED: 36117654 (2) Chronic respiratory failure ICD Codes: J96.10 - Chronic respiratory failure, unspecified whether with hypoxia or hypercapnia SNOMED: 84759218 (3) Organic brain syndrome ICD Codes: F09 - Unspecified mental disorder due to known physiological condition SNOMED: 058190779 (4) Sepsis ICD Codes: A41.9 - Sepsis, unspecified organism SNOMED: 35055985 (5) Feeding by G-tube ICD Codes: Z93.1 - Gastrostomy status SNOMED: 507186201, 230277566 (6) Pneumonia ICD Codes: J18.9 - Pneumonia, unspecified organism SNOMED: 795028834 (7) UTI (urinary tract infection) ICD Codes: N39.0 - Urinary tract infection, site not specified SNOMED: 12168998 Assessment/Plan pulm tx trach care abx ot pt diet cbc bmp am dc plan snf if clear Subjective Constitutional: Reports: weakness Allergies: Coded Allergies: No Known Allergies (Unverified , 12/13/12) All Systems: reviewed and negative except above Subjective trach aerosol asleep Objective Last 24 Hour Vital Signs Date Time Temp Pulse Resp B/P (MAP) Pulse Ox O2 Delivery O2 Flow Rate FiO2 06/24/18 13:22 97 T-piece 8.0 30 06/24/18 13:22 T-piece 8.0 30 06/24/18 12:00 97.7 85 20 101/73 (82) 100 97.7 06/24/18 09:00 Trach Collar 8.0 06/24/18 08:44 64 110/71 06/24/18 08:36 64 110/71 06/24/18 08:00 98.1 64 18 110/71 (84) 99 98.1 06/24/18 07:26 T-piece 8.0 30 06/24/18 07:26 99 T-piece 8.0 30 06/24/18 07:26 64 20 T-piece 8.0 30 06/24/18 04:00 98.0 90 20 121/78 (92) 98 98.0 06/24/18 01:00 96 T-piece 8.0 30 06/24/18 01:00 T-piece 8.0 30 06/24/18 00:00 97.3 86 21 106/70 (82) 97 97.3 06/23/18 22:00 Trach Collar 8.0 06/23/18 21:00 Trach Collar 8.0 06/23/18 20:34 86 119/84 06/23/18 20:00 97.9 86 20 119/84 (96) 100 97.9 06/23/18 19:03 96 T-piece 8.0 30 06/23/18 19:03 T-piece 8.0 30 06/23/18 19:02 92 20 T-piece 8.0 30 06/23/18 15:55 98.4 64 18 101/53 (69) 98 98.4 Intake and Output 06/23/18 06/24/18 19:00 07:00 Intake Total 1216.667 ml 620 ml Output Total 1200 ml Balance 1216.667 ml -580 ml Intake Free Water 160 ml 100 ml IV Total 276.667 ml Tube Feeding 780 ml 520 ml Output Urine Total 1200 ml # Bowel Movements 2 2 Laboratory Tests 06/23/18 16:04: Vancomycin Level Trough 14.2H 06/24/18 06:28: White Blood Count 12.9H, Red Blood Count 3.75L, Hemoglobin 10.1L, Hematocrit 31.4L, Mean Corpuscular Volume 84, Mean Corpuscular Hemoglobin 26.9L, Mean Corpuscular Hemoglobin Concent 32.2, Red Cell Distribution Width 13.3, Platelet Count 239, Mean Platelet Volume 9.9, Neutrophils (%) (Auto) 74.3, Lymphocytes (% ) (Auto) 14.6L, Monocytes (%) (Auto) 7.4, Eosinophils (%) (Auto) 3.1H, Basophils (%) (Auto) 0.6, Sodium Level 143, Potassium Level 3.3L, Chloride Level 108H, Carbon Dioxide Level 24, Anion Gap 11, Blood Urea Nitrogen 33H, Creatinine 1.1, Estimat Glomerular Filtration Rate > 60, Glucose Level 111H, Calcium Level 9.6 Height (Feet): 5 Height (Inches): 11.00 Weight (Pounds): 178 General Appearance: lethargic EENT: normal ENT inspection Neck: normal alignment Cardiovascular: normal peripheral pulses, normal rate, regular rhythm Respiratory/Chest: chest wall non-tender, lungs clear, normal breath sounds Abdomen: normal bowel sounds, non tender, soft Extremities: normal inspection Edema: no edema noted Arm (L), no edema noted Arm (R), no edema noted Leg (L), no edema noted Leg (R), no edema noted Pedal (L), no edema noted Pedal (R), no edema noted Generalized Neurologic: motor weakness Skin: normal pigmentation, warm/dry Frandy Eagle DO Jun 24, 2018 15:32
[2018-06-24 16:00] VITALS: BP 114/75
[2018-06-24] MEDS: Cefepime HCl 2 GM in D5W 110 ML IV SCH (17:15)
--- NOTE | 2018-06-24 17:53 | Neurology Progress Note ---
Interim History Interim History Interim History Mr. Torres is unresponsive to external stimuli. He continues to be nonverbal, unable to communicate, and unable to respond in any manner. His eyes are open and he has episodes of tonic deviation of his eyes to one side or the other. There has been no change in his neurologic status. 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 Review of Systems Neuro Review of Systems Unable to obtain. Objective Physical Exam Last Vital Signs Date Time Temp Pulse Resp B/P (MAP) Pulse Ox O2 Delivery O2 Flow Rate FiO2 06/24/18 13:22 97 T-piece 8.0 30 06/24/18 12:00 97.7 85 20 101/73 (82) 97.7 Laboratory Tests Test 06/24/18 06:28 White Blood Count 12.9 K/UL (4.8-10.8) H Red Blood Count 3.75 M/UL (4.70-6.10) L Hemoglobin 10.1 G/DL (14.2-18.0) L Hematocrit 31.4 % (42.0-52.0) L Mean Corpuscular Volume 84 FL (80-99) Mean Corpuscular Hemoglobin 26.9 PG (27.0-31.0) L Mean Corpuscular Hemoglobin Concent 32.2 G/DL (32.0-36.0) Red Cell Distribution Width 13.3 % (11.6-14.8) Platelet Count 239 K/UL (150-450) Mean Platelet Volume 9.9 FL (6.5-10.1) Neutrophils (%) (Auto) 74.3 % (45.0-75.0) Lymphocytes (%) (Auto) 14.6 % (20.0-45.0) L Monocytes (%) (Auto) 7.4 % (1.0-10.0) Eosinophils (%) (Auto) 3.1 % (0.0-3.0) H Basophils (%) (Auto) 0.6 % (0.0-2.0) Sodium Level 143 MMOL/L (136-145) Potassium Level 3.3 MMOL/L (3.5-5.1) L Chloride Level 108 MMOL/L (98-107) H Carbon Dioxide Level 24 MMOL/L (21-32) Anion Gap 11 mmol/L (5-15) Blood Urea Nitrogen 33 mg/dL (7-18) H Creatinine 1.1 MG/DL (0.55-1.30) Estimat Glomerular Filtration Rate > 60 mL/min (>60) Glucose Level 111 MG/DL (74-106) H Calcium Level 9.6 MG/DL (8.5-10.1) Neurologic Exam Objective PHYSICAL EXAMINATION: GENERAL: He is a well-developed, relatively well-nourished black gentleman, lying in bed with a tracheostomy. HEAD: Normocephalic and atraumatic. EENT: Examination benign except for tonic eye deviation from one side to the other varying from time to time. NECK: No neck rigidity was observed. NEUROLOGIC EXAMINATION: MENTAL STATUS EXAMINATION: He had his eyes open, but did not respond to any external stimuli. Further mental status testing was impossible. SPEECH: Could not be tested. LANGUAGE: Could not be tested. CRANIAL NERVE EXAMINATION: II: He did not blink to threat. III, IV & : He had tonic eye deviation, either to the right side or the left side lasting for minutes at a time and then shifting. The pupils were 3 mm in diameter and reactive sluggishly to light. V & VII: The corneal reflexes were present bilaterally. VIII: He did not respond to sounds and had no nystagmus. IX & X: The gag reflex was significantly diminished. XI: The sternocleidomastoids and trapezii did not function. XII: The tongue was in the midline. MOTOR SYSTEM: The tone was increased in all four extremities with a significant degree of spasticity. Examination of muscle mass revealed generalized muscle wasting. He also had bilateral knee and ankle contractures. Examination of power could not be performed on individual muscle groups, however , when deep painful stimuli were applied, he moved all four extremities minimally indicating a significant quadriparesis. SENSORY EXAMINATION: He responded appropriately to deep pain with reflex withdrawal. REFLEXES: 2+ and bilaterally symmetrical at the biceps, triceps, brachioradialis , and knees, 0 at both ankles. The plantar responses were extensor bilaterally. COORDINATION, STANCE & GAIT: Could not be tested. Impression/Recommendations Diagnostic Impression 1. Mr. Napoleon Torres is a 58-year-old, black gentleman, of unknown handedness, who has a past history of an unknown type of brain injury. He also has respiratory failure for which he has tracheostomy. He is unable to eat and as a result of that he has a gastrostomy. His level of cerebral function is unknown at his baseline, however at his [facility], he was noted to have a altered mental state and was sent to the [facility] emergency room where he was found to be in respiratory failure, had right a middle lobe infiltrate, had sepsis and a urinary tract infection. 2. He is unresponsive to external stimuli. He continues to be nonverbal, unable to communicate, and unable to respond in any manner. His eyes are open and he has episodes of tonic deviation of his eyes to one side or the other. There has been no change in his neurologic status. 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 3. On neurological examination at this time, his eyes are open, but he is unresponsive to any external stimuli. He does exhibit tonic eye movements to the right side followed by the left side. In addition, he also exhibits chewing movements. He moves all four extremities minimally on deep pain and has spastic quadriparesis. His deep tendon reflexes are relatively normal, but his plantar responses are extensor bilaterally. 4. His laboratory data on my initial evaluation revealed that his WBC count was elevated to 24,300. His hemoglobin was low at 9.8 with a left-sided shift. His chemistry panel revealed a glucose elevated to 109 and an albumin low at 2.8. His urinalysis revealed 3+ leukocyte esterase, 2-4 RBCs, and 20-30 WBCs per high-power field. 5. 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 6. The EEG revealed very low amplitude slow activity with no reactivity consistent with an unresponsive wakefulness syndrome. 7. 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 The super added infectious and metabolic processes that are ongoing may also be contributing. 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 Recommendations 1. Continue present management. 2. Continue present therapeutic regimen including Keppra. 3. Consider degree of aggressiveness of care in light of his unresponsive wakefulness syndrome and hopeless prognosis. Stew Patiño M.D., M.S.P.H. STEW PATIÑO Jun 24, 2018 17:53
[2018-06-24 20:00] VITALS: BP 111/73
[2018-06-25] VITALS: BP 108/78
[2018-06-25 04:12] VITALS: BP 119/77
[2018-06-25 06:35] LABS: BASOPHILS % (AUTO) 0.4 % (0.0-2.0); EOSINOPHILS % (AUTO) 3.3 % (0.0-3.0); HEMATOCRIT 28.5 % (42.0-52.0); HEMOGLOBIN 9.2 G/DL (14.2-18.0); LYMPHOCYTES % (AUTO) 24.9 % (20.0-45.0); MEAN CORPUSCULAR VOLUME 84 FL (80-99); MONOCYTES % (AUTO) 8.7 % (1.0-10.0); NEUTROPHILS % (AUTO) 62.7 % (45.0-75.0); PLATELET COUNT 267 K/UL (150-450); RED CELL DISTRIBUTION WIDTH 13.6 % (11.6-14.8); WHITE BLOOD COUNT 10.2 K/UL (4.8-10.8)
[2018-06-25 06:52] LABS: ANION GAP 8 mmol/L (5-15); BLOOD UREA NITROGEN 31 mg/dL (7-18); CALCIUM 9.2 MG/DL (8.5-10.1); CARBON DIOXIDE 30 MMOL/L (21-32); CHLORIDE 110 MMOL/L (98-107); CREATININE 1.1 MG/DL (0.55-1.30); POTASSIUM 3.6 MMOL/L (3.5-5.1); SODIUM 148 MMOL/L (136-145)
[2018-06-25 08:00] VITALS: BP 100/63
--- NOTE | 2018-06-25 08:14 | Infectious Diseases Prog Note ---
Assessment/Plan Assessment/Plan 58 yo male s/p PEG and Trach who was set to the ED from his alf for fever and leakage from his chronic indwelling urinary catheter. Sepsis Likely 2/2 UTI less likely PNA UA positive CXR read pending 06/20/18 - UCx - Proteus 06/20/18 - BCx - CoNS (contaminant) 06/21/19 - UCx - Proteus 06/21/19 - BCx - NGTD Leukocytosis See above Fever - Resolved Sacral ulcer - Not infected Non-verbal - Baseline ? CKD Alcohol abuse Seizures Plan: - Start Ceftriaxone #/ (End date 06/30/18) -D/C Cefepime # 5 - 06/24/18 - SP Vancomycin #3 -Monitor CBC and CMP -Wound care -Supportive care We will continue to follow the patient during this hospitalization. Subjective Allergies: Coded Allergies: No Known Allergies (Unverified , 12/13/12) Subjective No Acute events Patient afebrile Objective Vital Signs Last 24 Hour Vital Signs Date Time Temp Pulse Resp B/P (MAP) Pulse Ox O2 Delivery O2 Flow Rate FiO2 06/25/18 04:12 97.9 90 20 119/77 (91) 98 97.9 06/25/18 00:18 99 T-piece 6.0 28 06/25/18 00:18 T-piece 6.0 28 06/25/18 00:00 98.6 87 18 108/78 (88) 98.6 06/24/18 20:54 92 121/79 06/24/18 20:45 T-piece 6.0 28 06/24/18 20:43 99 T-piece 6.0 28 06/24/18 20:42 86 20 T-piece 6.0 28 06/24/18 20:00 98.8 97 18 111/73 (86) 95 98.8 06/24/18 16:00 99.2 86 20 114/75 (88) 100 99.2 06/24/18 13:22 97 T-piece 8.0 30 06/24/18 13:22 T-piece 8.0 30 06/24/18 12:00 97.7 85 20 101/73 (82) 100 97.7 06/24/18 09:00 Trach Collar 8.0 06/24/18 08:44 64 110/71 06/24/18 08:36 64 110/71 Height (Feet): 5 Height (Inches): 11.00 Weight (Pounds): 178 Objective Gen: NAD, Trached on T piece 30% O2 HEENT: NCAT, MMM, LUNGS: CTAB, No W CARDS: RRR, S1, S2, No M/R/G ABD: Soft, NT, ND, No R/G, + BS, PEG in place No erythema or purulence : Lake in place Ext: C/C/E, Pulses 2+ B/L (DP, Rad) NEURO: Not responsive Microbiology Date/Time Source Procedure Growth Status 06/22/18 18:18 Stool Clostridium difficile Toxin Assay - Final Complete Laboratory Tests Test 06/25/18 05:15 White Blood Count 10.2 K/UL (4.8-10.8) Red Blood Count 3.40 M/UL (4.70-6.10) L Hemoglobin 9.2 G/DL (14.2-18.0) L Hematocrit 28.5 % (42.0-52.0) L Mean Corpuscular Volume 84 FL (80-99) Mean Corpuscular Hemoglobin 27.0 PG (27.0-31.0) Mean Corpuscular Hemoglobin Concent 32.3 G/DL (32.0-36.0) Red Cell Distribution Width 13.6 % (11.6-14.8) Platelet Count 267 K/UL (150-450) Mean Platelet Volume 9.9 FL (6.5-10.1) Neutrophils (%) (Auto) 62.7 % (45.0-75.0) Lymphocytes (%) (Auto) 24.9 % (20.0-45.0) Monocytes (%) (Auto) 8.7 % (1.0-10.0) Eosinophils (%) (Auto) 3.3 % (0.0-3.0) H Basophils (%) (Auto) 0.4 % (0.0-2.0) Sodium Level 148 MMOL/L (136-145) H Potassium Level 3.6 MMOL/L (3.5-5.1) Chloride Level 110 MMOL/L (98-107) H Carbon Dioxide Level 30 MMOL/L (21-32) Anion Gap 8 mmol/L (5-15) Blood Urea Nitrogen 31 mg/dL (7-18) H Creatinine 1.1 MG/DL (0.55-1.30) Estimat Glomerular Filtration Rate > 60 mL/min (>60) Glucose Level 103 MG/DL (74-106) Calcium Level 9.2 MG/DL (8.5-10.1) Current Medications Medications (Trade) Dose Ordered Sig/Mariel Route PRN Reason Start Time Stop Time Status Last Admin Dose Admin Acetaminophen (Tylenol) 650 mg Q4H PRN ORAL fever 06/21/18 16:06 07/20/18 16:05 Albuterol/ Ipratropium (Albuterol/ Ipratropium) 3 ml Q4H PRN HHN Shortness of Breath 06/21/18 16:06 06/25/18 16:05 Amlodipine Besylate (Norvasc) 10 mg DAILY GT 06/22/18 09:00 07/21/18 08:59 06/24/18 08:36 Carvedilol (Coreg) 25 mg Q12H GT 06/21/18 21:00 07/20/18 20:59 06/24/18 20:54 Cefepime HCl 2 gm/ Dextrose 110 ml @ 220 mls/hr Q24H IV 06/22/18 15:00 06/28/18 14:59 06/24/18 17:15 Heparin Sodium (Porcine) (Heparin 5000 units/ml) 5,000 units EVERY 12 HOURS SUBQ 06/21/18 21:00 07/20/18 20:59 06/24/18 20:58 Levetiracetam (Keppra) 1,000 mg Q12HR GT 06/21/18 21:00 07/21/18 08:59 06/24/18 20:55 Morphine Sulfate (Morphine Sulfate) 2 mg Q4H PRN IVP Moderate Pain (Pain Scale 4-6) 06/21/18 17:00 06/27/18 20:52 Ondansetron HCl (Zofran) 4 mg Q6H PRN IVP Nausea & Vomiting 06/21/18 16:07 07/20/18 16:06 Phenazopyridine HCl (Pyridium) 100 mg DAILYPRN PRN ORAL dysuria 06/21/18 16:07 07/21/18 16:06 Polyethylene Glycol (Miralax) 17 gm DAILYPRN PRN ORAL Constipation 06/21/18 16:07 07/20/18 16:06 Temazepam (Restoril) 15 mg HSPRN PRN ORAL Insomnia 06/21/18 16:07 06/27/18 16:06 Duke Bauman MD Jun 25, 2018 08:14
[2018-06-25] MEDS: levETIRAcetam 500mg/5ml Liquid GT SCH (08:18)
[2018-06-25] MEDS: Heparin 5000 units/ml inj SUBQ SCH (08:19)
[2018-06-25] MEDS: Carvedilol 25mg Tab GT SCH (08:20)
[2018-06-25] MEDS ORDERED: cefTRIAXone 1 GM in D5W 55 ML IVPB SCH (10:00)
[2018-06-25 12:00] VITALS: BP 102/75
--- NOTE | 2018-06-25 12:10 | Neurology Progress Note ---
Interim History Interim History Interim History Mr. Torres is unresponsive to external stimuli. He is nonverbal, unable to communicate, and unable to respond in any manner. His eyes are open and he has episodes of tonic deviation of his eyes to one side or the other. There has been no change in his neurologic status. 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 Review of Systems Neuro Review of Systems Unable to obtain. Objective Physical Exam Last Vital Signs Date Time Temp Pulse Resp B/P (MAP) Pulse Ox O2 Delivery O2 Flow Rate FiO2 06/25/18 09:00 Trach Collar 8.0 06/25/18 08:21 79 100/63 06/25/18 06:30 20 28 06/25/18 06:30 98 06/25/18 04:12 97.9 97.9 Laboratory Tests Test 06/25/18 05:15 White Blood Count 10.2 K/UL (4.8-10.8) Red Blood Count 3.40 M/UL (4.70-6.10) L Hemoglobin 9.2 G/DL (14.2-18.0) L Hematocrit 28.5 % (42.0-52.0) L Mean Corpuscular Volume 84 FL (80-99) Mean Corpuscular Hemoglobin 27.0 PG (27.0-31.0) Mean Corpuscular Hemoglobin Concent 32.3 G/DL (32.0-36.0) Red Cell Distribution Width 13.6 % (11.6-14.8) Platelet Count 267 K/UL (150-450) Mean Platelet Volume 9.9 FL (6.5-10.1) Neutrophils (%) (Auto) 62.7 % (45.0-75.0) Lymphocytes (%) (Auto) 24.9 % (20.0-45.0) Monocytes (%) (Auto) 8.7 % (1.0-10.0) Eosinophils (%) (Auto) 3.3 % (0.0-3.0) H Basophils (%) (Auto) 0.4 % (0.0-2.0) Sodium Level 148 MMOL/L (136-145) H Potassium Level 3.6 MMOL/L (3.5-5.1) Chloride Level 110 MMOL/L (98-107) H Carbon Dioxide Level 30 MMOL/L (21-32) Anion Gap 8 mmol/L (5-15) Blood Urea Nitrogen 31 mg/dL (7-18) H Creatinine 1.1 MG/DL (0.55-1.30) Estimat Glomerular Filtration Rate > 60 mL/min (>60) Glucose Level 103 MG/DL (74-106) Calcium Level 9.2 MG/DL (8.5-10.1) Neurologic Exam Objective PHYSICAL EXAMINATION: GENERAL: He is a well-developed, relatively well-nourished black gentleman, lying in bed with a tracheostomy. HEAD: Normocephalic and atraumatic. EENT: Examination benign except for tonic eye deviation from one side to the other varying from time to time. NECK: No neck rigidity was observed. NEUROLOGIC EXAMINATION: MENTAL STATUS EXAMINATION: He had his eyes open, but did not respond to any external stimuli. Further mental status testing was impossible. SPEECH: Could not be tested. LANGUAGE: Could not be tested. CRANIAL NERVE EXAMINATION: II: He did not blink to threat. III, IV & : He had tonic eye deviation, either to the right side or the left side lasting for minutes at a time and then shifting. The pupils were 3 mm in diameter and reactive sluggishly to light. V & VII: The corneal reflexes were present bilaterally. VIII: He did not respond to sounds and had no nystagmus. IX & X: The gag reflex was significantly diminished. XI: The sternocleidomastoids and trapezii did not function. XII: The tongue was in the midline. MOTOR SYSTEM: The tone was increased in all four extremities with a significant degree of spasticity. Examination of muscle mass revealed generalized muscle wasting. He also had bilateral knee and ankle contractures. Examination of power could not be performed on individual muscle groups, however , when deep painful stimuli were applied, he moved all four extremities minimally indicating a significant quadriparesis. SENSORY EXAMINATION: He responded appropriately to deep pain with reflex withdrawal. REFLEXES: 2+ and bilaterally symmetrical at the biceps, triceps, brachioradialis , and knees, 0 at both ankles. The plantar responses were extensor bilaterally. COORDINATION, STANCE & GAIT: Could not be tested. Impression/Recommendations Diagnostic Impression 1. Mr. Napoleon Torres is a 58-year-old, black gentleman, of unknown handedness, who has a past history of an unknown type of brain injury. He also has respiratory failure for which he has tracheostomy. He is unable to eat and as a result of that he has a gastrostomy. His level of cerebral function is unknown at his baseline, however at his half-way, he was noted to have a altered mental state and was sent to the [facility] emergency room where he was found to be in respiratory failure, had right a middle lobe infiltrate, had sepsis and a urinary tract infection. 2. He is unresponsive to external stimuli. He is nonverbal, unable to communicate, and unable to respond in any manner. His eyes are open and he has episodes of tonic deviation of his eyes to one side or the other. There has been no change in his neurologic status. 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 3. On neurological examination at this time, his eyes are open, but he is unresponsive to any external stimuli. He does exhibit tonic eye movements to the right side followed by the left side. In addition, he also exhibits chewing movements. He moves all four extremities minimally on deep pain and has spastic quadriparesis. His deep tendon reflexes are relatively normal, but his plantar responses are extensor bilaterally. 4. His laboratory data on my initial evaluation revealed that his WBC count was elevated to 24,300. His hemoglobin was low at 9.8 with a left-sided shift. His chemistry panel revealed a glucose elevated to 109 and an albumin low at 2.8. His urinalysis revealed 3+ leukocyte esterase, 2-4 RBCs, and 20-30 WBCs per high-power field. 5. 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 6. The EEG revealed very low amplitude slow activity with no reactivity consistent with an unresponsive wakefulness syndrome. 7. 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 The super added infectious and metabolic processes that are ongoing may also be contributing. 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 Recommendations 1. Continue present management. 2. Continue present therapeutic regimen including Keppra. 3. Consider degree of aggressiveness of care in light of his unresponsive wakefulness syndrome and hopeless prognosis. Stew Patiño M.D., STEW VIVAS Jun 25, 2018 12:10
--- NOTE | 2018-06-25 13:40 | Pulmonology Progress Note ---
Assessment/Plan Problems: (1) Sepsis (2) Chronic respiratory failure (3) Organic brain syndrome (4) UTI (urinary tract infection) (5) Feeding by G-tube (6) Vegetative state Assessment/Plan no new events doing better seen by urologist improving afebrile continue cefepime tolerating feeding dvt prophylaxis Subjective ROS Limited/Unobtainable: No Constitutional: Reports: no symptoms HEENT: Repors: no symptoms Respiratory: Reports: no symptoms Allergies: Coded Allergies: No Known Allergies (Unverified , 12/13/12) Objective Last 24 Hour Vital Signs Date Time Temp Pulse Resp B/P (MAP) Pulse Ox O2 Delivery O2 Flow Rate FiO2 06/25/18 12:00 97.6 77 18 102/75 (84) 98 97.6 06/25/18 09:00 Trach Collar 8.0 06/25/18 08:21 79 100/63 06/25/18 08:20 75 100/63 06/25/18 08:00 98.9 79 19 100/63 (75) 97 98.9 06/25/18 06:30 71 20 T-piece 6.0 28 06/25/18 06:30 T-piece 6.0 28 06/25/18 06:30 98 T-piece 6.0 28 06/25/18 04:12 97.9 90 20 119/77 (91) 98 97.9 06/25/18 00:18 99 T-piece 6.0 28 06/25/18 00:18 T-piece 6.0 28 06/25/18 00:00 98.6 87 18 108/78 (88) 98.6 06/24/18 21:00 Trach Collar 8.0 06/24/18 20:54 92 121/79 06/24/18 20:45 T-piece 6.0 28 06/24/18 20:43 99 T-piece 6.0 28 06/24/18 20:42 86 20 T-piece 6.0 28 06/24/18 20:00 98.8 97 18 111/73 (86) 95 98.8 06/24/18 16:00 99.2 86 20 114/75 (88) 100 99.2 Intake and Output 06/24/18 06/25/18 19:00 07:00 Intake Total 780 ml 575 ml Output Total 500 ml 600 ml Balance 280 ml -25 ml Intake Free Water 120 ml Tube Feeding 780 ml 455 ml Output Urine Total 500 ml 600 ml # Bowel Movements 1 1 General Appearance: WD/WN HEENT: normocephalic, atraumatic Respiratory/Chest: chest wall non-tender, lungs clear Cardiovascular: normal peripheral pulses, normal rate Abdomen: normal bowel sounds, soft, non tender Genitourinary: normal external genitalia Skin: no rash Neurologic/Psychiatric: process treater II-XII grossly normal Microbiology Date/Time Source Procedure Growth Status 06/22/18 18:18 Stool Clostridium difficile Toxin Assay - Final Complete Laboratory Tests 06/25/18 05:15: White Blood Count 10.2, Red Blood Count 3.40L, Hemoglobin 9.2L, Hematocrit 28.5L , Mean Corpuscular Volume 84, Mean Corpuscular Hemoglobin 27.0, Mean Corpuscular Hemoglobin Concent 32.3, Red Cell Distribution Width 13.6, Platelet Count 267, Mean Platelet Volume 9.9, Neutrophils (%) (Auto) 62.7, Lymphocytes (% ) (Auto) 24.9, Monocytes (%) (Auto) 8.7, Eosinophils (%) (Auto) 3.3H, Basophils (%) (Auto) 0.4, Sodium Level 148H, Potassium Level 3.6, Chloride Level 110H, Carbon Dioxide Level 30, Anion Gap 8, Blood Urea Nitrogen 31H, Creatinine 1.1, Estimat Glomerular Filtration Rate > 60, Glucose Level 103, Calcium Level 9.2 Current Medications Medications (Trade) Dose Ordered Sig/Mariel Route PRN Reason Start Time Stop Time Status Last Admin Dose Admin Acetaminophen (Tylenol) 650 mg Q4H PRN ORAL fever 06/21/18 16:06 07/20/18 16:05 Albuterol/ Ipratropium (Albuterol/ Ipratropium) 3 ml Q4H PRN HHN Shortness of Breath 06/21/18 16:06 06/25/18 16:05 Amlodipine Besylate (Norvasc) 10 mg DAILY GT 06/22/18 09:00 07/21/18 08:59 06/24/18 08:36 Carvedilol (Coreg) 25 mg Q12H GT 06/21/18 21:00 07/20/18 20:59 06/24/18 20:54 Ceftriaxone Sodium 1 gm/ Dextrose 55 ml @ 110 mls/hr DAILY IVPB 06/25/18 10:00 07/02/18 09:59 06/25/18 10:08 Heparin Sodium (Porcine) (Heparin 5000 units/ml) 5,000 units EVERY 12 HOURS SUBQ 06/21/18 21:00 07/20/18 20:59 06/25/18 08:19 Levetiracetam (Keppra) 1,000 mg Q12HR GT 06/21/18 21:00 07/21/18 08:59 06/25/18 08:18 Morphine Sulfate (Morphine Sulfate) 2 mg Q4H PRN IVP Moderate Pain (Pain Scale 4-6) 06/21/18 17:00 06/27/18 20:52 Ondansetron HCl (Zofran) 4 mg Q6H PRN IVP Nausea & Vomiting 06/21/18 16:07 07/20/18 16:06 Phenazopyridine HCl (Pyridium) 100 mg DAILYPRN PRN ORAL dysuria 06/21/18 16:07 07/21/18 16:06 Polyethylene Glycol (Miralax) 17 gm DAILYPRN PRN ORAL Constipation 06/21/18 16:07 07/20/18 16:06 Temazepam (Restoril) 15 mg HSPRN PRN ORAL Insomnia 06/21/18 16:07 06/27/18 16:06 Stormy Gotti MD Jun 25, 2018 13:40
--- NOTE | 2018-06-25 14:04 | General Surgery Progress Note ---
General Surgery-Progress Note Subjective Symptoms: improved Additional Comments leukocytosis resolved. Objective Last 24 Hour Vital Signs Date Time Temp Pulse Resp B/P (MAP) Pulse Ox O2 Delivery O2 Flow Rate FiO2 06/25/18 12:00 97.6 77 18 102/75 (84) 98 97.6 06/25/18 09:00 Trach Collar 8.0 06/25/18 08:21 79 100/63 06/25/18 08:20 75 100/63 06/25/18 08:00 98.9 79 19 100/63 (75) 97 98.9 06/25/18 06:30 71 20 T-piece 6.0 28 06/25/18 06:30 T-piece 6.0 28 06/25/18 06:30 98 T-piece 6.0 28 06/25/18 04:12 97.9 90 20 119/77 (91) 98 97.9 06/25/18 00:18 99 T-piece 6.0 28 06/25/18 00:18 T-piece 6.0 28 06/25/18 00:00 98.6 87 18 108/78 (88) 98.6 06/24/18 21:00 Trach Collar 8.0 06/24/18 20:54 92 121/79 06/24/18 20:45 T-piece 6.0 28 06/24/18 20:43 99 T-piece 6.0 28 06/24/18 20:42 86 20 T-piece 6.0 28 06/24/18 20:00 98.8 97 18 111/73 (86) 95 98.8 06/24/18 16:00 99.2 86 20 114/75 (88) 100 99.2 I&O Intake and Output 06/24/18 06/25/18 19:00 07:00 Intake Total 780 ml 575 ml Output Total 500 ml 600 ml Balance 280 ml -25 ml Intake Free Water 120 ml Tube Feeding 780 ml 455 ml Output Urine Total 500 ml 600 ml # Bowel Movements 1 1 Dressing: other Wound: other Drains: other Cardiovascular: RSR Respiratory: clear Abdomen: soft, flat, non-tender, present bowel sounds Extremities: other Laboratory Tests Test 06/25/18 05:15 White Blood Count 10.2 K/UL (4.8-10.8) Red Blood Count 3.40 M/UL (4.70-6.10) L Hemoglobin 9.2 G/DL (14.2-18.0) L Hematocrit 28.5 % (42.0-52.0) L Mean Corpuscular Volume 84 FL (80-99) Mean Corpuscular Hemoglobin 27.0 PG (27.0-31.0) Mean Corpuscular Hemoglobin Concent 32.3 G/DL (32.0-36.0) Red Cell Distribution Width 13.6 % (11.6-14.8) Platelet Count 267 K/UL (150-450) Mean Platelet Volume 9.9 FL (6.5-10.1) Neutrophils (%) (Auto) 62.7 % (45.0-75.0) Lymphocytes (%) (Auto) 24.9 % (20.0-45.0) Monocytes (%) (Auto) 8.7 % (1.0-10.0) Eosinophils (%) (Auto) 3.3 % (0.0-3.0) H Basophils (%) (Auto) 0.4 % (0.0-2.0) Sodium Level 148 MMOL/L (136-145) H Potassium Level 3.6 MMOL/L (3.5-5.1) Chloride Level 110 MMOL/L (98-107) H Carbon Dioxide Level 30 MMOL/L (21-32) Anion Gap 8 mmol/L (5-15) Blood Urea Nitrogen 31 mg/dL (7-18) H Creatinine 1.1 MG/DL (0.55-1.30) Estimat Glomerular Filtration Rate > 60 mL/min (>60) Glucose Level 103 MG/DL (74-106) Calcium Level 9.2 MG/DL (8.5-10.1) Plan Problems: (1) Sepsis (2) Sacral decubitus ulcer, stage IV Assessment & Plan: 58[facility] with Stage IV full thickness pressure injury sacrum (L)5.5cm x(W)7.1cm x (D)2.2cm with undermining at 9-1 by 2.6cm at 1o'clock. Wound granular with scattered but trace slough .No odor noted (+) Epibiole at borders along base of wound. Dark borders .Periwound is dry without erythema or induration. Scrotal area red and dry. Pt has indwelling F/C small amt whitish discharge noted from penis Plan: Cleanse Sacral wound with Saline .Apply Nickel thick layer of Plurogel to wound with attention to undermined areas loosely pack with Soft wanda or Loose gauze.Apply Cavilon to Borders.Cover with Biatain drsg Daily and Prn. Surface support Air Fluidized mattress. Reposition at least every 2hours off back. Off-load Heels with Pillow. Greg Swift Jun 25, 2018 14:04
--- NOTE | 2018-06-25 14:20 | General Progress Note ---
Assessment/Plan Problem List: (1) Malnutrition ICD Codes: E46 - Unspecified protein-calorie malnutrition SNOMED: 01580183 (2) Chronic respiratory failure ICD Codes: J96.10 - Chronic respiratory failure, unspecified whether with hypoxia or hypercapnia SNOMED: 09632112 (3) Organic brain syndrome ICD Codes: F09 - Unspecified mental disorder due to known physiological condition SNOMED: 051085701 (4) Sepsis ICD Codes: A41.9 - Sepsis, unspecified organism SNOMED: 16262142 (5) Feeding by G-tube ICD Codes: Z93.1 - Gastrostomy status SNOMED: 194306218, 932518365 (6) Pneumonia ICD Codes: J18.9 - Pneumonia, unspecified organism SNOMED: 136667481 (7) UTI (urinary tract infection) ICD Codes: N39.0 - Urinary tract infection, site not specified SNOMED: 29608853 Status: stable, progressing Assessment/Plan pulm tx trach care abx ot pt diet dc to snf Subjective Constitutional: Reports: weakness Allergies: Coded Allergies: No Known Allergies (Unverified , 12/13/12) All Systems: reviewed and negative except above Subjective trach aerosol asleep Objective Last 24 Hour Vital Signs Date Time Temp Pulse Resp B/P (MAP) Pulse Ox O2 Delivery O2 Flow Rate FiO2 06/25/18 12:00 97.6 77 18 102/75 (84) 98 97.6 06/25/18 09:00 Trach Collar 8.0 06/25/18 08:21 79 100/63 06/25/18 08:20 75 100/63 06/25/18 08:00 98.9 79 19 100/63 (75) 97 98.9 06/25/18 06:30 71 20 T-piece 6.0 28 06/25/18 06:30 T-piece 6.0 28 06/25/18 06:30 98 T-piece 6.0 28 06/25/18 04:12 97.9 90 20 119/77 (91) 98 97.9 06/25/18 00:18 99 T-piece 6.0 28 06/25/18 00:18 T-piece 6.0 28 06/25/18 00:00 98.6 87 18 108/78 (88) 98.6 06/24/18 21:00 Trach Collar 8.0 06/24/18 20:54 92 121/79 06/24/18 20:45 T-piece 6.0 28 06/24/18 20:43 99 T-piece 6.0 06/24/18 20:42 86 20 T-piece 6.0 06/24/18 20:00 98.8 97 18 111/73 (86) 95 98.8 06/24/18 16:00 99.2 86 20 114/75 (88) 100 99.2 Intake and Output 06/24/18 06/25/18 19:00 07:00 Intake Total 780 ml 575 ml Output Total 500 ml 600 ml Balance 280 ml -25 ml Intake Free Water 120 ml Tube Feeding 780 ml 455 ml Output Urine Total 500 ml 600 ml # Bowel Movements 1 1 Laboratory Tests 06/25/18 05:15: White Blood Count 10.2, Red Blood Count 3.40L, Hemoglobin 9.2L, Hematocrit 28.5L , Mean Corpuscular Volume 84, Mean Corpuscular Hemoglobin 27.0, Mean Corpuscular Hemoglobin Concent 32.3, Red Cell Distribution Width 13.6, Platelet Count 267, Mean Platelet Volume 9.9, Neutrophils (%) (Auto) 62.7, Lymphocytes (% ) (Auto) 24.9, Monocytes (%) (Auto) 8.7, Eosinophils (%) (Auto) 3.3H, Basophils (%) (Auto) 0.4, Sodium Level 148H, Potassium Level 3.6, Chloride Level 110H, Carbon Dioxide Level 30, Anion Gap 8, Blood Urea Nitrogen 31H, Creatinine 1.1, Estimat Glomerular Filtration Rate > 60, Glucose Level 103, Calcium Level 9.2 Height (Feet): 5 Height (Inches): 11.00 Weight (Pounds): 178 General Appearance: lethargic EENT: normal ENT inspection Neck: normal alignment Cardiovascular: normal peripheral pulses, normal rate, regular rhythm Respiratory/Chest: chest wall non-tender, lungs clear, normal breath sounds Abdomen: normal bowel sounds, non tender, soft Extremities: normal inspection Edema: no edema noted Arm (L), no edema noted Arm (R), no edema noted Leg (L), no edema noted Leg (R), no edema noted Pedal (L), no edema noted Pedal (R), no edema noted Generalized Neurologic: motor weakness Skin: normal pigmentation, warm/dry Frandy Eagle DO Jun 25, 2018 14:20
[2018-06-25] MEDS ORDERED: CEFTRIAXONE500 MG IJ (14:46)
[2018-06-25] MEDS ORDERED: CEFTRIAXONE1 G2 IV (14:46)
--- NOTE | 2018-06-27 11:26 | Discharge Summary ---
Discharge Summary Discharge Summary _ DATE OF ADMISSION: 06/20/2018 DATE OF DISCHARGE: 06/25/2018 REASON FOR ADMISSION: 58 years old male with past medical history of chronic respiratory failure, tracheostomy status, seizure disorder, encephalopathy, G-tube, HTN, sacral decubitus ulcer stage 4, chronic kidney disease, GERD, nonverbal, [facility] of fever. Upon evaluation patient was noted to be febrile, tachycardic and tachypneic. Laboratory workup revealed significant leukocytosis with WBC 27.5. Urinalysis was grossly positive for UTI. BUN 38 creatinine 1.5, consistent with a known history of chronic kidney disease. Troponin was negative. Chest x-ray revealed streaky bibasilar opacities, possible atelectasis, possible developing infiltrate. Patient was admitted with diagnoses of sepsis ,urinary tract infection, possible pneumonia, chronic respiratory failure with tracheostomy status, encephalopathy, sacral decubitus ulcer, present on admission. CONSULTANTS: neurologist Dr. Patiño pulmonary Dr. Gotti ID specialist Dr. Casanova surgery Dr. Swift urologist Dr. Jacob [facility]SE: Patient admitted for further management. Patient started on gentle IV hydration and empiric antibiotics. Urine culture revealed Proteus. Infectious disease specialist closely followed. Blood culture initially revealed one out of 4 Staphylococcus coagulase-negative , likely contaminant as per ID. Repeated blood culture were negative, stool for C. difficile was negative. Sacral decubitus ulcer did not appear to be infected. Antibiotic regimen optimized as per infectious disease recommendations. Leukocytosis resolved. Welt Rougher closely followed. CT of the head revealed evidence of ventriculomegaly and encephalomalacia. EKG showed evidence of severe encephalopathy, likely due to anoxic/ischemic injury to the brain in the past. Seizure precautions maintained, Keppra continued. Overall prognosis for this patient poor with no chances for neuro recovery. Tracheostomy care provided. Pulmonary toilet provided. FiO2 titrated to keep pulse oximetry above 92%. DVT prophylaxis provided. Strict aspiration precautions were maintained. G-tube feeding started . Patient was able to tolerate tube feeding. Knapsack Sprayer recommendations implemented in plan of care to improve nutritional status. Blood pressure was managed with calcium channel jennifer and beta jennifer. Renal parameters and electrolytes were closely monitored. Electrolytes were corrected as needed. Nephrotoxics were avoided. Noted clogged Lake catheter. Urology consult was requested. Lake cathter was replaced by urologist, who recommended to replace Lake every 3-4 weeks. Bowel regimen instituted. Wound care provided as per surgeon recommendations, and to [facility] Patient with DNR/DNI status. 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 DISCHARGE INSTRUCTIONS: [facility]. Follow up with medical doctor at the facility. I have been assigned to dictate discharge summary for this account. I was not involved in the patient's management. Karissa Madsen NP Jun 27, 2018 11:26
== END 2018-06-25 17:15 | DRG 720 ==
LOC: EDBD 15:58 → EMR 16:15 → 2E 17:11 → EDBEDREQ 18:41 → 4E 06-21 15:52
DX: A41.9 Sepsis, unspecified organism (principal); G93.1 Anoxic brain damage, not elsewhere classified; E43 Unspecified severe protein-calorie malnutrition; G82.50 Quadriplegia, unspecified; J96.10 Chronic respiratory failure, unspecified whether with hypoxia or hypercapnia; L89.154 Pressure ulcer of sacral region, stage 4; J18.9 Pneumonia, unspecified organism; R40.3 Persistent vegetative state; Z43.0 Encounter for attention to tracheostomy; R13.10 Dysphagia, unspecified; N39.0 Urinary tract infection, site not specified; B96.4 Proteus (mirabilis) (morganii) as the cause of diseases classified elsewhere; Z43.1 Encounter for attention to gastrostomy; Z66 Do not resuscitate; G40.909 Epilepsy, unspecified, not intractable, without status epilepticus; T83.091A Other mechanical complication of indwelling urethral catheter, initial encounter; Y84.6 Urinary catheterization as the cause of abnormal reaction of the patient, or of later complication, without mention of misadventure at the time of the procedure; F09 Unspecified mental disorder due to known physiological condition; I12.9 Hypertensive chronic kidney disease with stage 1 through stage 4 chronic kidney disease, or unspecified chronic kidney disease; N18.9 Chronic kidney disease, unspecified
CPT/HCPCS: 36415; 70450; 71045; 80048; 80053; 80202; 81003; 82270; 82378; 82550; 82553; 82607; 82746; 83540; 83550; 83605; 83615; 83735; 84100; 84484; 85007; 85025; 85044; 85060; 85610; 85651; 85730; 87040; 87070; 87081; 87086; 87181; 87205; 87324; 93005; 94664; 94760; 95819; 96361; 96365; 96367; 99285

== ENCOUNTER 2018-07-09 09:33 | Inpatient (IN) | payer MEDICARE, MEDICAID ==
[~2018-07-09] VITALS: Ht 172.7 cm; Wt 64.9 kg
[~2018-07-09 09:33] MED LIST changes: +ACETAMINOPHEN325 M1 GT; +ACIDOPHILUS GT; +ACIDOPHILUS1 EAC7 PO; +ASCORBIC ACID500 MG GT; +CARVEDILOL25 MG GT; +CATAPRES0.1 MG GT; +CEFTRIAXONE1 G2 IV; +CEFTRIAXONE500 MG IJ; +CHLORHEXIDINE473 ML MM; +ELIQUIS5 MG GT; +FAMOTIDINE20 MG GT; +FERROUS SU220 MG/51 GT; +IPRATROPIU0.2 MG/1 M HHN; +LEVETIRACE100 MG/1 M GT; +MAGNESIUM OXID400 M1 GT; +MULTI-DELYN237 ML GT; +NORCO 5-325 TA1 EACH GT; +TYLENOL EXTRA500 MG GT; +ZOFRAN4 M3 GT
--- NOTE | 2018-07-09 09:59 | Emergency Room Report ---
History of Present Illness General Chief Complaint: Dyspnea/Respdistress Present Illness HPI Mr. Torres is a 57-year-old -[place] male with history of cardiomyopathy, liver cirrhosis, type 2 diabetes and hypertension with tracheostomy in place who presents with hx of pneumonia. He has history of chronic respiratory failure anemia and GERD as well as encephalopathy. According to POLST form selective treatment is indicated. According to chest x- ray obtained on yesterday 07/08/2008 there is a density in the left base compatible with infiltrate. I reviewed labs obtained from 3 days ago, wbc elevated at 17,000. Patient is nonverbal. History obtained from detention documentation. Patient is nonverbal. Mr. Torres also has hx of sepsis, anoxic brain damage and cardiac arrest. Also has a history of epilepsy. 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 According EMS, sputum or tube feed noted in T-Bar connection. Concern for aspiration PCP Dr. Frandy Eagle Allergies: Coded Allergies: No Known Allergies (Unverified , 12/13/12) Patient History Past Surgical History: other - reviewed per NH documentation Pertinent Family History: other - reviewed per EMR Reviewed Nursing Documentation: PMH: Agreed; PSxH: Agreed Nursing Documentation-PMH Hx Cardiac Problems: Yes - Cardiac arrest Hx Hypertension: Yes Hx Diabetes: Yes Hx Cancer: No Hx Gastrointestinal Problems: No - Dysphagia, gastrostomy Hx Neurological Problems: No - Anoxic brain injury Hx Seizures: Yes Hx Epilepsy: Yes Hx Numbness: Yes - IN BOTH KNEES AND RADIATES TO BOTH ANKLES Review of Systems All Other Systems: limited - nonverbal patient Physical Exam Vital Signs Date Time Temp Pulse Resp B/P (MAP) Pulse Ox O2 Delivery O2 Flow Rate FiO2 07/09/18 09:34 98.5 88 16 121/85 98 T-piece 2.0 98.4 Sp02 EP Interpretation: reviewed, normal General Appearance: no apparent distress, alert, other - nonverbal will make limited eye contact, chronically ill with trach tube in place, contracted extremities Eyes: bilateral eye normal inspection, bilateral eye PERRL ENT: normal pharynx, no angioedema, moist mucus membranes Neck: no meningismus, limited range of motion Respiratory: no respiratory distress, no retraction, no accessory muscle use, rales, rhonchi Cardiovascular #1: regular rate, rhythm, no edema, no murmur Gastrointestinal: soft, no peritonitis Neurologic: alert Psychiatric: other - nonverbal Skin: other - sacral decubitus ulcer Medical Decision Making Diagnostic Impression: Primary Impression: HCAP (healthcare-associated pneumonia) ER Course Mr. Torres is admitted to service of Dr. Eagle for HCAP WBC elevated with normal lactic acid EKG Diagnostic Results EKG Time: 12:27 Rate: normal Rhythm: NSR ST Segments: no acute changes Other Impression normal sinus rhythm normal rate normal axis normal intervals no ST elevation no ST-T signs of ischemia Chest X-Ray Diagnostic Results Chest X-Ray Diagnostic Results : Chest X-Ray Ordered: Yes # of Views/Limited/Complete: 1 View PA Xray: Interpretation reviewed Impression: Other - LLL infiltrate Electronically Signed by: This image has been electronically signed by Dr. Nguyen Stern Last Vital Signs Date Time Temp Pulse Resp B/P (MAP) Pulse Ox O2 Delivery O2 Flow Rate FiO2 07/09/18 09:34 98.5 88 16 121/85 98 T-piece 2.0 98.4 Disposition: ADMITTED INPATIENT Condition: Stable Nguyen Stern MD Jul 09, 2018 09:59
[2018-07-09 10:00] VITALS: BP 128/97
[2018-07-09 10:16] LABS: HEMATOCRIT 32.1 % (42.0-52.0); HEMOGLOBIN 10.3 G/DL (14.2-18.0); MEAN CORPUSCULAR VOLUME 82 FL (80-99); PLATELET COUNT 258 K/UL (150-450); RED BLOOD COUNT 3.89 M/UL (4.70-6.10); RED CELL DISTRIBUTION WIDTH 13.6 % (11.6-14.8); WHITE BLOOD COUNT 17.9 K/UL (4.8-10.8)
[2018-07-09 10:21] LABS: ANION GAP 4 mmol/L (5-15); BLOOD UREA NITROGEN 25 mg/dL (7-18); CALCIUM 9.5 MG/DL (8.5-10.1); CARBON DIOXIDE 31 MMOL/L (21-32); CHLORIDE 97 MMOL/L (98-107); CREATININE 0.8 MG/DL (0.55-1.30); POTASSIUM 4.6 MMOL/L (3.5-5.1); SODIUM 132 MMOL/L (136-145)
[2018-07-09 10:26] LABS: ALANINE AMINOTRANSFERASE 28 U/L (12-78); ALBUMIN 2.9 G/DL (3.4-5.0); ALBUMIN/GLOBULIN RATIO 0.4 (1.0-2.7); ALKALINE PHOSPHATASE 112 U/L (46-116); ASPARTATE AMINO TRANSFERASE 15 U/L (15-37); BILIRUBIN,TOTAL 0.3 MG/DL (0.2-1.0)
[2018-07-09] MEDS ORDERED: LEVETIRACE500 MG/51 GT (10:57)
[2018-07-09] MEDS ORDERED: ELIQUIS5 MG GT (10:57)
[2018-07-09] MEDS ORDERED: SODIUM CHLORIDE1 GM GT (10:57)
[2018-07-09] MEDS ORDERED: LORazepam Inj 2mg/ml 1ml IV PRN (11:45)
[2018-07-09] MEDS ORDERED: Albuterol/Ipratropium 3ml neb HHN PRN (11:45)
[2018-07-09] MEDS ORDERED: Miralax 17gm pkt ORAL PRN (11:45)
[2018-07-09] MEDS ORDERED: Morphine Sulfate 4mg/ml Inj (IV USE ONLY) IVP PRN (11:45)
[2018-07-09 12:00] VITALS: BP 130/95
[2018-07-09] MEDS ORDERED: Piperacillin/Tazobactam 4.5 GM in NS 110 ML IVPB ONE (12:00)
[2018-07-09] MEDS: levETIRAcetam 500mg/5ml Liquid GT SCH ×2 (13:01→18:17)
[2018-07-09 14:00] VITALS: BP 135/95
--- NOTE | 2018-07-09 14:01 | Diagnostic Imaging Report ---
Indication: Cough Technique: One view of the chest Comparison: 06/20/2018 Findings: No definite acute infiltrates, effusions, or congestion. Heart size is normal. There is a tracheostomy. No definite significant interim change. Impression: No acute process
--- NOTE | 2018-07-09 14:36 | Consultation ---
History of Present Illness General Date patient seen: Jul 09, 2018 Chief Complaint: Dyspnea/Respdistress Present Illness HPI 57-year-old -[place] male with tracheostomy and history of cardiomyopathy, liver cirrhosis, type 2 diabete, Malignant neoplasm of the occipital lobeanoxic brain damage and cardiac arrest.and hypertension resented to Er by paramedics with Dx of pneumonia. According to chest x-ray obtained on 07/08/2008 there is a density in the left base compatible with infiltrate. Pt also had leukocytosis and fever5. Patient is nonverbal. Pt had Trach with T -tube. He is admitted to telemetry for further work up. Allergies: Coded Allergies: No Known Allergies (Unverified , 12/13/12) Medication History Scheduled Amlodipine Besylate* (Amlodipine Besylate*), 10 MG GT DAILY, (Reported) Apixaban (Eliquis), 5 MG GT TWICE A DAY, (Reported) Apixaban (Eliquis), 5 MG GT BID, (Reported) Ascorbic Acid* (Ascorbic Acid*), 500 MG GT DAILY, (Reported) Carvedilol* (Carvedilol*), 25 MG GT TWICE A DAY, (Reported) Ceftriaxone Sodium (Ceftriaxone), 1 GM IV DAILY, (Reported) Chlorhexidine Gluconate (Chlorhexidine Gluconate), 15 ML MM Q12HR, (Reported) Famotidine (Famotidine), 20 MG GT DAILY, (Reported) Ferrous Sulfate (Ferrous Sulfate), 330 MG GT EVERY OTHER DAY, (Reported) Levetiracetam* (Levetiracetam*), 1,000 MG GT TID, (Reported) Magnesium Oxide (Magnesium Oxide), 400 MG GT DAILY, (Reported) Multivitamin Liquid* (Multi-Delyn*), 30 ML GT DAILY, (Reported) Sodium Chloride* (Sodium Chloride*), 1 GM GT BID, (Reported) Scheduled PRN Acetaminophen* (Acetaminophen 325MG Tablet*), 650 MG GT for Mild Pain (Pain Scale 1-3), (Reported) Acetaminophen* (Tylenol Extra Strength*), 500 MG GT Q6HR PRN for Moderate Pain ( Pain Scale 4-6), (Reported) Clonidine Hcl* (Catapres*), 0.1 MG GT Q8HR PRN for For High Blood Pressure, ( Reported) Hydrocodone Bit/Acetaminophen 5-325* ([place]ial[place] 5-325*), 1 TAB GT Q4HR PRN for Moderate [place] Pain (5-7), (Reported) Ipratropium [place] 0.5MG/2.5ML (Ipratropium [place] 0.5MG/2.5ML), 0.5 MG HHN Q6H PRN for Shortness of Breath, (Reported) Ondansetron* (Zofran*), 4 MG GT for Nausea & Vomiting, (Reported) Miscellaneous Medications Ceftriaxone Sodium (Ceftriaxone), 500 MG IJ, (Reported) Lactobacillus Acidophilus (Acidophilus), 100 MG GT, (Reported) Levetiracetam (Levetiracetam), 1,000 MG GT, (Reported) Patient History Healthcare decision maker Resuscitation status Advanced Directive on File Past Medical/Surgical History Past Medical/Surgical History: (1) Sacral decubitus ulcer, stage IV (2) Feeding by G-tube (3) Vegetative state (4) Organic brain syndrome Review of Systems All Other Systems: negative except mentioned in HPI Physical Exam General Appearance: cachetic Lines, tubes and drains: peripheral HEENT: normocephalic, anicteric, status post trach Neck: non-tender, normal alignment Respiratory/Chest: rhonchi - left, rhonchi - right Cardiovascular/Chest: normal peripheral pulses, normal rate Abdomen: normal bowel sounds, non tender Genitourinary/Rectal: normal genital exam Extremities: normal range of motion, non-tender Last 24 Hour Vital Signs Date Time Temp Pulse Resp B/P (MAP) Pulse Ox O2 Delivery O2 Flow Rate FiO2 07/09/18 14:00 98.4 92 20 130/95 100 T-piece 2.0 98.4 07/09/18 12:00 92 20 130/95 100 T-piece 2.0 07/09/18 10:00 98.4 86 20 128/97 100 T-piece 2.0 98.4 07/09/18 09:54 T-piece 2.0 07/09/18 09:34 98.5 88 16 121/85 98 T-piece 2.0 98.4 Laboratory Tests Test 07/09/18 09:55 White Blood Count 17.9 K/UL (4.8-10.8) H Red Blood Count 3.89 M/UL (4.70-6.10) L Hemoglobin 10.3 G/DL (14.2-18.0) L Hematocrit 32.1 % (42.0-52.0) L Mean Corpuscular Volume 82 FL (80-99) Mean Corpuscular Hemoglobin 26.3 PG (27.0-31.0) L Mean Corpuscular Hemoglobin Concent 32.0 G/DL (32.0-36.0) Red Cell Distribution Width 13.6 % (11.6-14.8) Platelet Count 258 K/UL (150-450) Mean Platelet Volume 11.2 FL (6.5-10.1) H Neutrophils (%) (Auto) % (45.0-75.0) Lymphocytes (%) (Auto) % (20.0-45.0) Monocytes (%) (Auto) % (1.0-10.0) Eosinophils (%) (Auto) % (0.0-3.0) Basophils (%) (Auto) % (0.0-2.0) Differential Total Cells Counted 100 Neutrophils % (Manual) 86 % (45-75) H Lymphocytes % (Manual) 7 % (20-45) L Monocytes % (Manual) 3 % (1-10) Eosinophils % (Manual) 3 % (0-3) Basophils % (Manual) 0 % (0-2) Band Neutrophils 1 % (0-8) Platelet Estimate Adequate Platelet Morphology Normal Red Blood Cell Morphology Normal Sodium Level 132 MMOL/L (136-145) L Potassium Level 4.6 MMOL/L (3.5-5.1) Chloride Level 97 MMOL/L (98-107) L Carbon Dioxide Level 31 MMOL/L (21-32) Anion Gap 4 mmol/L (5-15) L Blood Urea Nitrogen 25 mg/dL (7-18) H Creatinine 0.8 MG/DL (0.55-1.30) Estimat Glomerular Filtration Rate > 60 mL/min (>60) Glucose Level 113 MG/DL (74-106) H Lactic Acid Level 1.20 mmol/L (0.4-2.0) Calcium Level 9.5 MG/DL (8.5-10.1) Total Bilirubin 0.3 MG/DL (0.2-1.0) Aspartate Amino Transf (AST/SGOT) 15 U/L (15-37) Alanine Aminotransferase (ALT/SGPT) 28 U/L (12-78) Alkaline Phosphatase 112 U/L (46-116) Total Protein 9.5 G/DL (6.4-8.2) H Albumin 2.9 G/DL (3.4-5.0) L Globulin 6.6 g/dL Albumin/Globulin Ratio 0.4 (1.0-2.7) L Height (Feet): 5 Height (Inches): 8.00 Weight (Pounds): 140 Medications Current Medications Medications (Trade) Dose Ordered Sig/Mariel Route PRN Reason Start Time Stop Time Status Last Admin Dose Admin Acetaminophen (Tylenol) 650 mg Q4H PRN ORAL FEVER 07/09/18 11:45 08/08/18 11:44 Albuterol/ Ipratropium (Albuterol/ Ipratropium) 3 ml Q4H PRN HHN Shortness of Breath 07/09/18 11:45 07/14/18 11:44 Amlodipine Besylate (Norvasc) 10 mg DAILY GT 07/10/18 09:00 08/09/18 08:59 Carvedilol (Coreg) 25 mg TWICE A DAY GT 07/09/18 18:00 08/08/18 17:59 Clonidine HCl (Catapres Tab) 0.1 mg Q8H PRN GT For High Blood Pressure 07/09/18 11:45 08/08/18 11:44 Dextrose (Dextrose 50%) 25 ml Q30M PRN IV Hypoglycemia 07/09/18 11:45 08/08/18 11:41 Dextrose (Dextrose 50%) 50 ml Q30M PRN IV hypoglycemia 07/09/18 11:45 08/08/18 11:44 Heparin Sodium (Porcine) (Heparin 5000 units/ml) 5,000 units EVERY 12 HOURS SUBQ 07/09/18 21:00 08/08/18 20:59 Levetiracetam (Keppra) 1,000 mg TID GT 07/09/18 13:01 08/08/18 13:00 Lorazepam (Ativan 2mg/ml 1ml) 2 mg Q2H PRN IV For Anxiety 07/09/18 11:45 07/16/18 11:44 Morphine Sulfate (Morphine Sulfate) 4 mg Q4H PRN IVP Severe Pain (Pain Scale 7-10) 10/5/18 11:45 07/16/18 11:44 Ondansetron HCl (Zofran) 4 mg Q6H PRN IVP Nausea & Vomiting 07/09/18 11:45 08/08/18 11:44 Pantoprazole (Protonix) 40 mg DAILY IV 07/10/18 09:00 08/09/18 08:59 Polyethylene Glycol (Miralax) 17 gm DAILYPRN PRN ORAL Constipation 07/09/18 11:45 08/08/18 11:44 Vancomycin HCl (Vanco rx to dose) 1 ea DAILY PRN MISC PER PHARM 07/09/18 13:15 08/08/18 13:14 Vancomycin/Sodium Chloride 250 ml @ 166.667 mls/hr Q12H IVPB 07/09/18 15:00 07/14/18 14:59 Assessment/Plan Problem List: (1) Sepsis ICD Codes: A41.9 - Sepsis, unspecified organism SNOMED: 94659035 (2) HCAP (healthcare-associated pneumonia) ICD Codes: J18.9 - Pneumonia, unspecified organism SNOMED: 283397037 (3) Severe protein-calorie malnutrition ICD Codes: E43 - Unspecified severe protein-calorie malnutrition SNOMED: 362841598 (4) Feeding by G-tube ICD Codes: Z93.1 - Gastrostomy status SNOMED: 058001406, 544347221 (5) Vegetative state ICD Codes: R40.3 - Persistent vegetative state SNOMED: 07360872 (6) Organic brain syndrome ICD Codes: F09 - Unspecified mental disorder due to known physiological condition SNOMED: 812567994 Respiratory: monitor respiratory rate, adjust FIO2, CXR Cardiac: continue to monitor HR/BP Renal: F/U I&O, keep IV fluid Infectious Disease: check cultures Gastrointestinal: continue feedings/current rate Endocrine: monitor blood sugar Hematologic: monitor H/H, transfuse if hgb<8.5 Neurologic: keep patient comfortable Affect: PRN ativan Discussed with: nurses, consultants, case planner Stormy Gotti MD Jul 09, 2018 14:36
--- NOTE | 2018-07-09 14:50 | Consultation ---
Consult Note Consult Note [id number] Jonathon Casanova MD Jul 09, 2018 14:50
[2018-07-09 16:00] VITALS: BP 144/101
[2018-07-09] MEDS: cefTRIAXone 2 GM in D5W 55 ML IVPB SCH (17:01)
--- NOTE | 2018-07-09 17:30 | History and Physical Report ---
DATE OF ADMISSION: 07/09/2018 APPROXIMATE TIME: 1 p.m. CONSULTANTS: 1. Stormy Gotti M.D. 2. Jonathon Casanova M.D. CHIEF COMPLAINT: Lethargy, fever, sepsis, pneumonia. BRIEF HISTORY: The patient is a 58-year-old male from [facility] presented to [place] ER last night with fever, shortness of breath, lethargy, found to have pneumonia and sepsis. The patient in the ER, being admitted to telemetry for further care. Currently lethargic in bed, trach, aerosol, nonverbal. REVIEW OF SYSTEMS: Unavailable. PAST MEDICAL HISTORY: Respiratory failure, organic brain syndrome, malnutrition, sacral decubitus. PAST SURGICAL HISTORY: G-tube and trach. MEDICATIONS: Include vancomycin, amlodipine, pantoprazole, heparin, carvedilol, levetiracetam, Zosyn, clonidine, albuterol, morphine, Zofran, lorazepam. ALLERGIES: Denies. SOCIAL HISTORY: Unable to obtain secondary to the patient's condition . PHYSICAL EXAMINATION: GENERAL: Lethargic in bed, nonverbal, trach, aerosol, in bed. VITAL SIGNS: Temperature is 98 degrees, pulse 92, respiratory rate 20, blood pressure 130/95. CARDIOVASCULAR: No murmur. LUNGS: Poor exchange. ABDOMEN: Bowel sounds distant. EXTREMITIES: No cyanosis, clubbing, or edema. NEUROLOGIC: The patient lethargic, flaccid in bed, not following directions. LABORATORY AND DIAGNOSTIC DATA: White count 17.9, hemoglobin and hematocrit 10 and 32, otherwise CBC is normal. BMP shows sodium 132, chloride 97, BUN and creatinine 25 and 0.8, glucose 113. Albumin 2.9. ASSESSMENT: 1. Respiratory failure. 2. Trach, aerosol. 3. Pneumonia. 4. Sepsis. 5. Hyponatremia. 6. OBS. 7. Malnutrition. 8. Sacral decubitus. 9. Anemia. 10. Malnutrition. PLAN: 1. OT/PT. 2. Dietary followup. 3. O2 saturation, pulmonary treatment. 4. Antibiotics per Infectious Diseases. 5. Resume home medications. 6. CBC and BMP in the morning. 7. Dr. Gotti, Dr. Casanova, Dr. Lisa to evaluate. 8. We will continue to follow the patient. Frandy Eagle D.O. DR: David JOB#: [id number] CC:
--- NOTE | 2018-07-09 18:15 | Consultation ---
DATE OF CONSULTATION: 07/09/2018 INFECTIOUS DISEASE CONSULTATION CONSULTING PHYSICIAN: Jonathon Casanova M.D. REFERRING PHYSICIAN: Frandy Eagle D.O. REASON FOR CONSULTATION: Evaluation of the patient for pneumonia and antibiotic management. HISTORY OF PRESENT ILLNESS: The patient is a 58-year-old male with multiple medical problems, who has been admitted to this medical center for pneumonia. The patient is not able to provide information. Much of the information is gathered through the chart. Infection Diseases consultation has been requested for management of pneumonia. At time of admission, the patient was found to have leukocytosis, , sepsis. PAST MEDICAL HISTORY: 1. Cardiomyopathy. 2. Liver cirrhosis. 3. Diabetes. 4. Hypertension. 5. Status post trach. 6. History of gastroesophageal reflux disease. 7. History of encephalopathy. 8. Status post PEG placement. MEDICATIONS: Vancomycin, Zosyn, and Levaquin in the emergency room. ALLERGIES: No known drug allergies. SOCIAL HISTORY: The patient lives in [place]. FAMILY HISTORY: Unavailable. REVIEW OF SYSTEMS: Unobtainable. PHYSICAL EXAMINATION: VITAL SIGNS: Pulse 86, respiratory rate 18, blood pressure 130/95. HEENT: No pale conjunctivae. No icterus. NECK: Trach in place. CHEST: . Coarse breathing sounds. HEART: S1 and S2. ABDOMEN: Soft. PEG tube in place. EXTREMITIES: No cyanosis. SKIN: Stage IV sacral decubitus, grossly not infected. NEUROLOGIC: Nonverbal. LABORATORY AND DIAGNOSTIC DATA: White blood cells 17.9, . UA shows pyuria. BUN 25 and creatinine 0.8. ALT, AST, and alkaline phosphatase unremarkable. Blood and urine culture is pending. Chest x-ray, no acute process. ASSESSMENT: The patient is a 58-year-old male with: 1. Leukocytosis. 2. Probable sepsis. 3. Probable pneumonia (despite of chest x-ray negative, rule out healthcare-associated pneumonia. 4. Stage IV sacral decubitus, grossly not infected. 5. Probable bacteremia. 6. Probable urinary tract infection. 7. History of chronic [place] catheter. PLAN: 1. Start the patient on IV Rocephin. 2. Monitor CBC. 3. Monitor BMP. 4. Monitor cultures (blood, urine, and sputum). 5. Monitor chest x-ray. 6. Monitor clinical course and laboratories and based on those, we will do further recommendation. Thank you, Dr. Frandy Eagle for allowing me to participate in this patient. I will follow the patient with you during this hospitalization. Jonathon Casanova M.D. DR: Annelise JOB#: [id number] CC:
[2018-07-09] MEDS: Vancomycin 750mg/NS 250ml IVPB SCH (18:16)
[2018-07-09] MEDS: Carvedilol 25mg Tab GT SCH (18:17)
[2018-07-09 20:00] VITALS: BP 123/95
[2018-07-09] MEDS: Heparin 5000 units/ml inj SUBQ SCH (20:58)
[2018-07-10] VITALS: BP 117/84
[2018-07-10] MEDS: Vancomycin 750mg/NS 250ml IVPB SCH ×2 (03:10→14:36)
[2018-07-10 04:00] VITALS: BP 117/85
[2018-07-10 08:00] VITALS: BP 122/90
--- NOTE | 2018-07-10 08:33 | General Progress Note ---
Assessment/Plan Problem List: (1) Fever ICD Codes: R50.9 - Fever, unspecified SNOMED: 838899264 (2) Chronic respiratory failure ICD Codes: J96.10 - Chronic respiratory failure, unspecified whether with hypoxia or hypercapnia SNOMED: 27448993 (3) Organic brain syndrome ICD Codes: F09 - Unspecified mental disorder due to known physiological condition SNOMED: 544487341 (4) Vegetative state ICD Codes: R40.3 - Persistent vegetative state SNOMED: 91882056 (5) Feeding by G-tube ICD Codes: Z93.1 - Gastrostomy status SNOMED: 746253064, 243240429 (6) Sepsis ICD Codes: A41.9 - Sepsis, unspecified organism SNOMED: 81166692 (7) Malnutrition ICD Codes: E46 - Unspecified protein-calorie malnutrition SNOMED: 15327288 (8) Sacral decubitus ulcer, stage IV ICD Codes: L89.154 - Pressure ulcer of sacral region, stage 4 SNOMED: 590593189, 022786651 (9) HCAP (healthcare-associated pneumonia) ICD Codes: J18.9 - Pneumonia, unspecified organism SNOMED: 351835837 Status: unchanged Assessment/Plan o2 pulm tx trach abx wound care cbc bmp promise ltach eval Subjective Constitutional: Reports: weakness Allergies: Coded Allergies: No Known Allergies (Unverified , 12/13/12) All Systems: reviewed and negative except above Subjective trach aerosol lethargic Objective Last 24 Hour Vital Signs Date Time Temp Pulse Resp B/P (MAP) Pulse Ox O2 Delivery O2 Flow Rate FiO2 07/10/18 04:00 96 07/10/18 04:00 98.2 95 20 117/85 (96) 97 98.2 07/10/18 01:09 T-piece 6.0 28 07/10/18 01:08 98 T-piece 6.0 28 07/10/18 00:00 93 07/10/18 00:00 98.2 99 20 117/84 (95) 96 98.2 07/09/18 21:00 T-piece 2.0 07/09/18 20:50 Trach Collar 6.0 28 07/09/18 20:49 98 T-piece 6.0 28 07/09/18 20:00 99 07/09/18 20:00 98.1 99 20 123/95 (104) 99 98.1 07/09/18 18:17 104 144/101 07/09/18 16:00 98.1 109 24 144/101 (115) 99 98.1 07/09/18 16:00 104 07/09/18 15:24 T-piece 2.0 07/09/18 14:00 106 07/09/18 14:00 98.1 108 24 135/95 (108) 100 98.1 07/09/18 14:00 98.4 92 20 130/95 100 T-piece 2.0 98.4 07/09/18 12:00 92 20 130/95 100 T-piece 2.0 07/09/18 10:00 98.4 86 20 128/97 100 T-piece 2.0 98.4 07/09/18 09:54 T-piece 2.0 07/09/18 09:50 88 22 Trach Collar 6.0 28 07/09/18 09:50 Trach Collar 6.0 28 07/09/18 09:50 100 Trach Collar 6.0 28 07/09/18 09:34 98.5 88 16 121/85 98 T-piece 2.0 98.4 Intake and Output 07/09/18 07/10/18 19:00 07:00 Intake Total 55 ml 166.667 ml Output Total 325 ml 375 ml Balance -270 ml -208.333 ml Intake Oral 0 ml IV Total 55 ml 166.667 ml Output Urine Total 325 ml 375 ml # Voids 1 # Bowel Movements 1 Laboratory Tests 07/09/18 09:55: White Blood Count 17.9H, Red Blood Count 3.89L, Hemoglobin 10.3L, Hematocrit 32.1L, Mean Corpuscular Volume 82, Mean Corpuscular Hemoglobin 26.3L, Mean Corpuscular Hemoglobin Concent 32.0, Red Cell Distribution Width 13.6, Platelet Count 258, Mean Platelet Volume 11.2H, Neutrophils (%) (Auto) , Lymphocytes (%) (Auto) , Monocytes (%) (Auto) , Eosinophils (%) (Auto) , Basophils (%) (Auto) , Differential Total Cells Counted 100, Neutrophils % (Manual) 86H, Lymphocytes % (Manual) 7L, Monocytes % (Manual) 3, Eosinophils % (Manual) 3, Basophils % ( Manual) 0, Band Neutrophils 1, Platelet Estimate Adequate, Platelet Morphology Normal, Red Blood Cell Morphology Normal, Sodium Level 132L, Potassium Level 4.6 , Chloride Level 97L, Carbon Dioxide Level 31, Anion Gap 4L, Blood Urea Nitrogen 25H, Creatinine 0.8, Estimat Glomerular Filtration Rate > 60, Glucose Level 113H, Lactic Acid Level 1.20, Calcium Level 9.5, Total Bilirubin 0.3, Aspartate Amino Transf (AST/SGOT) 15, Alanine Aminotransferase (ALT/SGPT) 28, Alkaline Phosphatase 112, Total Protein 9.5H, Albumin 2.9L, Globulin 6.6, Albumin/Globulin Ratio 0.4L Height (Feet): 5 Height (Inches): 8.00 Weight (Pounds): 140 General Appearance: lethargic Neck: normal inspection Cardiovascular: normal peripheral pulses, normal rate, regular rhythm Respiratory/Chest: chest wall non-tender, decreased breath sounds Abdomen: normal bowel sounds, non tender, soft Extremities: normal inspection Edema: no edema noted Arm (L), no edema noted Arm (R), no edema noted Leg (L), no edema noted Leg (R), no edema noted Pedal (L), no edema noted Pedal (R), no edema noted Generalized Neurologic: motor weakness Skin: normal pigmentation, warm/dry Frandy Eagle DO Jul 10, 2018 08:33
[2018-07-10] MEDS: Carvedilol 25mg Tab GT SCH ×2 (09:07→18:00)
[2018-07-10] MEDS: levETIRAcetam 500mg/5ml Liquid GT SCH ×2 (09:07→22:17)
[2018-07-10] MEDS: Pantoprazole Inj IV SCH (09:07)
[2018-07-10] MEDS: Heparin 5000 units/ml inj SUBQ SCH ×2 (09:07→22:18)
--- NOTE | 2018-07-10 09:13 | Diagnostic Imaging Report ---
PORTABLE AP UPRIGHT CXR: HISTORY: 58-year-old male; pleural effusion. COMPARISON: Portable CXR 07/09/2018, 06/20/2018, 12/13/2012. FINDINGS: Imaging is mildly limited by patient rotation, mild motion artifact, and external artifacts. Allowing for this, tracheostomy tube is in grossly stable and satisfactory position. There is no definite confluent lung consolidation; there is asymmetric ill-defined increased density/ground glass opacity within the inferior left lung, which is likely at least partially secondary to patient rotation and chest wall soft tissues. Cardiomediastinal silhouette is grossly stable, allowing for differences in patient position. No obvious pneumothorax or effusion, allowing for technique. IMPRESSION: 1. No obvious pleural effusion identified on portable CXR. 2. Asymmetric increased density in the inferior left lung region, likely at least partially secondary to patient rotation and chest wall soft tissues, though atelectasis, asymmetric edema, or early pneumonia are not excluded.
--- NOTE | 2018-07-10 09:33 | Consultation ---
Consult Note Consult Note asked to eval for low Na Mr. Torres is a 57-year-old -[place] male with history of cardiomyopathy, liver cirrhosis, type 2 diabetes and hypertension with tracheostomy in place who presents with hx of pneumonia. He has history of chronic respiratory failure anemia and GERD as well as encephalopathy. According to POLST form selective treatment is indicated. According to chest x- ray obtained on yesterday 07/08/2008 there is a density in the left base compatible with infiltrate. I reviewed labs obtained from 3 days ago, wbc elevated at 17,000. Patient is nonverbal. History obtained from assisted documentation. Patient is nonverbal. Mr. Torres also has hx of sepsis, anoxic brain damage and cardiac arrest. Also has a history of epilepsy. 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 According EMS, sputum or tube feed noted in T-Bar connection. Concern for aspiration has trach has GT Has [place] Assessment/Plan Pneumonia Low Na ? depletional Anemia Trach to O2 no UA Sz disorders Plan Anemia perez Low Na perez per orders Ian Lisa MD Jul 10, 2018 09:33
--- NOTE | 2018-07-10 09:47 | Consultation ---
History of Present Illness General Date patient seen: Jul 10, 2018 Chief Complaint: Dyspnea/Respdistress Reason for Consultation: stage IV sacral decubitus ulcer Present Illness HPI 58 year old male known to me from prior hospital visit presents with pneumonia. Patient with multiple medical comorbidities. Prior stage IV sacral decubitus which was cared for while in hospital. Currently leukocytosis, CXR as below, exam as below. Surgery called to evaluate patient and assist with care / management. patient seen, chart reviewed, patient examined. Allergies: Coded Allergies: No Known Allergies (Unverified , 12/13/12) Medication History Scheduled Amlodipine Besylate* (Amlodipine Besylate*), 10 MG GT DAILY, (Reported) Apixaban (Eliquis), 5 MG GT TWICE A DAY, (Reported) Apixaban (Eliquis), 5 MG GT BID, (Reported) Ascorbic Acid* (Ascorbic Acid*), 500 MG GT DAILY, (Reported) Carvedilol* (Carvedilol*), 25 MG GT TWICE A DAY, (Reported) Ceftriaxone Sodium (Ceftriaxone), 1 GM IV DAILY, (Reported) Chlorhexidine Gluconate (Chlorhexidine Gluconate), 15 ML MM Q12HR, (Reported) Famotidine (Famotidine), 20 MG GT DAILY, (Reported) Ferrous Sulfate (Ferrous Sulfate), 330 MG GT EVERY OTHER DAY, (Reported) Levetiracetam* (Levetiracetam*), 1,000 MG GT TID, (Reported) Magnesium Oxide (Magnesium Oxide), 400 MG GT DAILY, (Reported) Multivitamin Liquid* (Multi-Delyn*), 30 ML GT DAILY, (Reported) Sodium Chloride* (Sodium Chloride*), 1 GM GT BID, (Reported) Scheduled PRN Acetaminophen* (Acetaminophen 325MG Tablet*), 650 MG GT for Mild Pain (Pain Scale 1-3), (Reported) Acetaminophen* (Tylenol Extra Strength*), 500 MG GT Q6HR PRN for Moderate Pain ( Pain Scale 4-6), (Reported) Clonidine Hcl* (Catapres*), 0.1 MG GT Q8HR PRN for For High Blood Pressure, ( Reported) Hydrocodone Bit/Acetaminophen 5-325* (Volant 5-325*), 1 TAB GT Q4HR PRN for Moderate Breakthru Pain (5-7), (Reported) Ipratropium [place] 0.5MG/2.5ML (Ipratropium [place] 0.5MG/2.5ML), 0.5 MG HHN Q6H PRN for Shortness of Breath, (Reported) Ondansetron* (Zofran*), 4 MG GT for Nausea & Vomiting, (Reported) Miscellaneous Medications Ceftriaxone Sodium (Ceftriaxone), 500 MG IJ, (Reported) Lactobacillus Acidophilus (Acidophilus), 100 MG GT, (Reported) Levetiracetam (Levetiracetam), 1,000 MG GT, (Reported) Patient History Limited by: medical condition History Provided By: Medical Record, PMD Healthcare decision maker Resuscitation status Do Not Intubate Advanced Directive on File Past Medical/Surgical History Past Medical/Surgical History: (1) Sacral decubitus ulcer, stage III (2) Chronic respiratory failure (3) Fever (4) Organic brain syndrome (5) Malnutrition (6) Vegetative state (7) Sepsis (8) Feeding by G-tube (9) HCAP (healthcare-associated pneumonia) (10) Sacral decubitus ulcer, stage IV Review of Systems ROS Narrative cannot obtain given medical condition Physical Exam General Appearance: no apparent distress Lines, tubes and drains: other HEENT: mucous membranes moist Neck: normal inspection Respiratory/Chest: no respiratory distress, no accessory muscle use Cardiovascular/Chest: regular rhythm Abdomen: soft, no organomegaly, no mass, feeding tube, other Extremities: other Skin Exam: other Neurologic: unresponsiveness Last 24 Hour Vital Signs Date Time Temp Pulse Resp B/P (MAP) Pulse Ox O2 Delivery O2 Flow Rate FiO2 07/10/18 09:07 85 122/90 07/10/18 09:07 85 122/90 07/10/18 09:00 T-piece 07/10/18 08:00 97.9 85 22 122/90 (101) 94 97.9 07/10/18 07:52 99 T-piece 6.0 28 07/10/18 07:52 T-piece 6.0 07/10/18 04:00 96 07/10/18 04:00 98.2 95 20 117/85 (96) 97 98.2 07/10/18 01:09 T-piece 6.0 28 07/10/18 01:08 98 T-piece 6.0 28 07/10/18 00:00 93 07/10/18 00:00 98.2 99 20 117/84 (95) 96 98.2 07/09/18 21:00 T-piece 2.0 07/09/18 20:50 Trach Collar 6.0 28 07/09/18 20:49 98 T-piece 6.0 28 07/09/18 20:00 99 07/09/18 20:00 98.1 99 20 123/95 (104) 99 98.1 07/09/18 18:17 104 144/101 07/09/18 16:00 98.1 109 24 144/101 (115) 99 98.1 07/09/18 16:00 104 07/09/18 15:24 T-piece 2.0 07/09/18 14:00 106 07/09/18 14:00 98.1 108 24 135/95 (108) 100 98.1 07/09/18 14:00 98.4 92 20 130/95 100 T-piece 2.0 98.4 07/09/18 12:00 92 20 130/95 100 T-piece 2.0 07/09/18 10:00 98.4 86 20 128/97 100 T-piece 2.0 98.4 07/09/18 09:54 T-piece 2.0 07/09/18 09:50 88 22 Trach Collar 6.0 28 07/09/18 09:50 Trach Collar 6.0 28 07/09/18 09:50 100 Trach Collar 6.0 28 Intake and Output 07/09/18 07/10/18 19:00 07:00 Intake Total 55 ml 166.667 ml Output Total 325 ml 375 ml Balance -270 ml -208.333 ml Intake Oral 0 ml IV Total 55 ml 166.667 ml Output Urine Total 325 ml 375 ml # Voids 1 # Bowel Movements 1 Laboratory Tests Test 07/09/18 09:55 White Blood Count 17.9 K/UL (4.8-10.8) H Red Blood Count 3.89 M/UL (4.70-6.10) L Hemoglobin 10.3 G/DL (14.2-18.0) L Hematocrit 32.1 % (42.0-52.0) L Mean Corpuscular Volume 82 FL (80-99) Mean Corpuscular Hemoglobin 26.3 PG (27.0-31.0) L Mean Corpuscular Hemoglobin Concent 32.0 G/DL (32.0-36.0) Red Cell Distribution Width 13.6 % (11.6-14.8) Platelet Count 258 K/UL (150-450) Mean Platelet Volume 11.2 FL (6.5-10.1) H Neutrophils (%) (Auto) % (45.0-75.0) Lymphocytes (%) (Auto) % (20.0-45.0) Monocytes (%) (Auto) % (1.0-10.0) Eosinophils (%) (Auto) % (0.0-3.0) Basophils (%) (Auto) % (0.0-2.0) Differential Total Cells Counted 100 Neutrophils % (Manual) 86 % (45-75) H Lymphocytes % (Manual) 7 % (20-45) L Monocytes % (Manual) 3 % (1-10) Eosinophils % (Manual) 3 % (0-3) Basophils % (Manual) 0 % (0-2) Band Neutrophils 1 % (0-8) Platelet Estimate Adequate Platelet Morphology Normal Red Blood Cell Morphology Normal Sodium Level 132 MMOL/L (136-145) L Potassium Level 4.6 MMOL/L (3.5-5.1) Chloride Level 97 MMOL/L (98-107) L Carbon Dioxide Level 31 MMOL/L (21-32) Anion Gap 4 mmol/L (5-15) L Blood Urea Nitrogen 25 mg/dL (7-18) H Creatinine 0.8 MG/DL (0.55-1.30) Estimat Glomerular Filtration Rate > 60 mL/min (>60) Glucose Level 113 MG/DL (74-106) H Lactic Acid Level 1.20 mmol/L (0.4-2.0) Calcium Level 9.5 MG/DL (8.5-10.1) Total Bilirubin 0.3 MG/DL (0.2-1.0) Aspartate Amino Transf (AST/SGOT) 15 U/L (15-37) Alanine Aminotransferase (ALT/SGPT) 28 U/L (12-78) Alkaline Phosphatase 112 U/L (46-116) Total Protein 9.5 G/DL (6.4-8.2) H Albumin 2.9 G/DL (3.4-5.0) L Globulin 6.6 g/dL Albumin/Globulin Ratio 0.4 (1.0-2.7) L Height (Feet): 5 Height (Inches): 8.00 Weight (Pounds): 140 Medications Current Medications Medications (Trade) Dose Ordered Sig/Mariel Route PRN Reason Start Time Stop Time Status Last Admin Dose Admin Acetaminophen (Tylenol) 650 mg Q4H PRN ORAL FEVER 07/09/18 11:45 08/08/18 11:44 Albuterol/ Ipratropium (Albuterol/ Ipratropium) 3 ml Q4H PRN HHN Shortness of Breath 07/09/18 11:45 07/14/18 11:44 Amlodipine Besylate (Norvasc) 10 mg DAILY GT 07/10/18 09:00 08/09/18 08:59 07/10/18 09:07 Carvedilol (Coreg) 25 mg TWICE A DAY GT 07/09/18 18:00 08/08/18 17:59 07/10/18 09:07 Ceftriaxone Sodium 2 gm/ Dextrose 55 ml @ 110 mls/hr Q24H IVPB 07/09/18 16:00 07/16/18 15:59 07/09/18 17:01 Clonidine HCl (Catapres Tab) 0.1 mg Q8H PRN GT For High Blood Pressure 07/09/18 11:45 08/08/18 11:44 Dextrose (Dextrose 50%) 25 ml Q30M PRN IV Hypoglycemia 07/09/18 11:45 08/08/18 11:41 Dextrose (Dextrose 50%) 50 ml Q30M PRN IV hypoglycemia 07/09/18 11:45 08/08/18 11:44 Heparin Sodium (Porcine) (Heparin 5000 units/ml) 5,000 units EVERY 12 HOURS SUBQ 07/09/18 21:00 08/08/18 20:59 07/10/18 09:07 Levetiracetam (Keppra) 1,500 mg Q12HR GT 07/10/18 21:00 08/08/18 13:00 UNV Lorazepam (Ativan 2mg/ml 1ml) 2 mg Q2H PRN IV For Anxiety 07/09/18 11:45 07/16/18 11:44 Morphine Sulfate (Morphine Sulfate) 4 mg Q4H PRN IVP Severe Pain (Pain Scale 7-10) 07/09/18 11:45 07/16/18 11:44 Ondansetron HCl (Zofran) 4 mg Q6H PRN IVP Nausea & Vomiting 07/09/18 11:45 08/08/18 11:44 Pantoprazole (Protonix) 40 mg DAILY IV 07/10/18 09:00 08/09/18 08:59 07/10/18 09:07 Polyethylene Glycol (Miralax) 17 gm DAILYPRN PRN ORAL Constipation 07/09/18 11:45 08/08/18 11:44 Vancomycin HCl (Vanco rx to dose) 1 ea DAILY PRN MISC PER PHARM 07/09/18 13:15 08/08/18 13:14 Vancomycin/Sodium Chloride 250 ml @ 166.667 mls/hr Q12H IVPB 07/09/18 15:00 07/14/18 14:59 07/10/18 03:10 Assessment/Plan Problem List: (1) Sacral decubitus ulcer, stage IV Assessment & Plan: 58M [facility] resident with Stage IV full thickness pressure injury sacrum 5cm x 7cm x3-4cm with undermining. Wound granular with scattered but trace slough .No odor noted (+) macerated edges and dark borders .Periwound is dry without erythema or induration. no signs of active infection. mild serous drainage. as compared to prior visit wound has progressed. wound present upon admission as documented in wound care photos and will be cared for while in hospital. Plan: Cleanse Sacral wound with Saline Will order Plurogel to wound when available. loosely pack with Soft wanda or Loose gauze. Apply Cavilon to Borders.Cover with Biatain drsg Daily and Prn. Surface support Air Fluidized mattress. Reposition at least every 2hours off back. Off-load Heels with Pillow. ICD Codes: L89.154 - Pressure ulcer of sacral region, stage 4 SNOMED: 621569042, [id number] Greg Swift Jul 10, 2018 09:47
--- NOTE | 2018-07-10 11:13 | Pulmonology Progress Note ---
Assessment/Plan Problems: (1) Sepsis (2) HCAP (healthcare-associated pneumonia) (3) Severe protein-calorie malnutrition (4) Feeding by G-tube (5) Vegetative state (6) Organic brain syndrome Respiratory: CXR Cardiac: continue to monitor HR/BP Renal: F/U I&O, check electrolytes Infectious Disease: check cultures, add antibiotics Gastrointestinal: continue feedings/current rate Endocrine: monitor blood sugar Hematologic: monitor H/H Neurologic: PRN Ativan Affect: PRN ativan Notes Reviewed: busperson, renal, ID Subjective ROS Limited/Unobtainable: Yes Constitutional: Reports: no symptoms HEENT: Repors: no symptoms Respiratory: Reports: no symptoms Allergies: Coded Allergies: No Known Allergies (Unverified , 12/13/12) Objective Last 24 Hour Vital Signs Date Time Temp Pulse Resp B/P (MAP) Pulse Ox O2 Delivery O2 Flow Rate FiO2 07/10/18 09:07 85 122/90 07/10/18 09:07 85 122/90 07/10/18 09:00 T-piece 07/10/18 08:00 84 07/10/18 08:00 97.9 85 22 122/90 (101) 94 97.9 07/10/18 07:52 99 T-piece 6.0 28 07/10/18 07:52 T-piece 6.0 28 07/10/18 04:00 96 07/10/18 04:00 98.2 95 20 117/85 (96) 97 98.2 07/10/18 01:09 T-piece 6.0 28 07/10/18 01:08 98 T-piece 6.0 28 07/10/18 00:00 93 07/10/18 00:00 98.2 99 20 117/84 (95) 96 98.2 07/09/18 21:00 T-piece 2.0 07/09/18 20:50 Trach Collar 6.0 28 07/09/18 20:49 98 T-piece 6.0 28 07/09/18 20:00 99 07/09/18 20:00 98.1 99 20 123/95 (104) 99 98.1 07/09/18 18:17 104 144/101 07/09/18 16:00 98.1 109 24 144/101 (115) 99 98.1 07/09/18 16:00 104 07/09/18 15:24 T-piece 2.0 07/09/18 14:00 106 07/09/18 14:00 98.1 108 24 135/95 (108) 100 98.1 07/09/18 14:00 98.4 92 20 130/95 100 T-piece 2.0 98.4 07/09/18 12:00 92 20 130/95 100 T-piece 2.0 Intake and Output 07/09/18 07/10/18 19:00 07:00 Intake Total 55 ml 166.667 ml Output Total 325 ml 375 ml Balance -270 ml -208.333 ml Intake Oral 0 ml IV Total 55 ml 166.667 ml Output Urine Total 325 ml 375 ml # Voids 1 # Bowel Movements 1 General Appearance: no acute distress HEENT: normocephalic, atraumatic Respiratory/Chest: chest wall non-tender, crackles/rales Cardiovascular: normal peripheral pulses, normal rate, regular rhythm Abdomen: normal bowel sounds, soft, non tender, no scars Extremities: no cyanosis Neurologic/Psychiatric: cellulose insulation helper II-XII grossly normal Current Medications Medications (Trade) Dose Ordered Sig/Mariel Route PRN Reason Start Time Stop Time Status Last Admin Dose Admin Acetaminophen (Tylenol) 650 mg Q4H PRN ORAL FEVER 07/09/18 11:45 08/08/18 11:44 Albuterol/ Ipratropium (Albuterol/ Ipratropium) 3 ml Q4H PRN HHN Shortness of Breath 07/09/18 11:45 07/14/18 11:44 Amlodipine Besylate (Norvasc) 10 mg DAILY GT 07/10/18 09:00 08/09/18 08:59 07/10/18 09:07 Carvedilol (Coreg) 25 mg TWICE A DAY GT 07/09/18 18:00 08/08/18 17:59 07/10/18 09:07 Ceftriaxone Sodium 2 gm/ Dextrose 55 ml @ 110 mls/hr Q24H IVPB 07/09/18 16:00 07/16/18 15:59 07/09/18 17:01 Clonidine HCl (Catapres Tab) 0.1 mg Q8H PRN GT For High Blood Pressure 07/09/18 11:45 08/08/18 11:44 Dextrose (Dextrose 50%) 25 ml Q30M PRN IV Hypoglycemia 07/09/18 11:45 08/08/18 11:41 Dextrose (Dextrose 50%) 50 ml Q30M PRN IV hypoglycemia 07/09/18 11:45 08/08/18 11:44 Heparin Sodium (Porcine) (Heparin 5000 units/ml) 5,000 units EVERY 12 HOURS SUBQ 07/09/18 21:00 08/08/18 20:59 07/10/18 09:07 Levetiracetam (Keppra) 1,500 mg Q12HR GT 07/10/18 21:00 08/08/18 13:00 Lorazepam (Ativan 2mg/ml 1ml) 2 mg Q2H PRN IV For Anxiety 07/09/18 11:45 07/16/18 11:44 Morphine Sulfate (Morphine Sulfate) 4 mg Q4H PRN IVP Severe Pain (Pain Scale 7-10) 07/09/18 11:45 07/16/18 11:44 Non-Formulary Medication (Non-Formulary Med) 1 ea DAILY ORAL 07/11/18 09:00 08/10/18 08:59 UNV Ondansetron HCl (Zofran) 4 mg Q6H PRN IVP Nausea & Vomiting 07/09/18 11:45 08/08/18 11:44 Pantoprazole (Protonix) 40 mg DAILY IV 07/10/18 09:00 08/09/18 08:59 07/10/18 09:07 Polyethylene Glycol (Miralax) 17 gm DAILYPRN PRN ORAL Constipation 07/09/18 11:45 08/08/18 11:44 Vancomycin HCl (Vanco rx to dose) 1 ea DAILY PRN MISC PER PHARM 07/09/18 13:15 08/08/18 13:14 Vancomycin/Sodium Chloride 250 ml @ 166.667 mls/hr Q12H IVPB 07/09/18 15:00 07/14/18 14:59 07/10/18 03:10 Stormy Gotti MD Jul 10, 2018 11:13
[2018-07-10 12:00] VITALS: BP 109/72
[2018-07-10] MEDS: [UNRECOGNIZED DRUG - OTHER] TOPIC SCH (13:00)
[2018-07-10 16:00] VITALS: BP 99/58
[2018-07-10] MEDS: cefTRIAXone 2 GM in D5W 55 ML IVPB SCH (16:57)
[2018-07-10 20:00] VITALS: BP 113/84
[2018-07-10] MEDS ORDERED: Vancomycin 1 GM in D5W 275 ML IV SCH (23:00)
[2018-07-11] VITALS: BP 112/75
[2018-07-11 02:53] LABS: BASOPHILS % (AUTO) 0.9 % (0.0-2.0); EOSINOPHILS % (AUTO) 3.1 % (0.0-3.0); HEMATOCRIT 32.7 % (42.0-52.0); HEMOGLOBIN 10.7 G/DL (14.2-18.0); LYMPHOCYTES % (AUTO) 21.1 % (20.0-45.0); MEAN CORPUSCULAR VOLUME 82 FL (80-99); NEUTROPHILS % (AUTO) 66.9 % (45.0-75.0); PLATELET COUNT 271 K/UL (150-450); RED BLOOD COUNT 3.99 M/UL (4.70-6.10); RED CELL DISTRIBUTION WIDTH 13.2 % (11.6-14.8); WHITE BLOOD COUNT 10.7 K/UL (4.8-10.8)
[2018-07-11 03:06] LABS: PHOSPHORUS 3.4 MG/DL (2.5-4.9)
[2018-07-11 03:07] LABS: ALANINE AMINOTRANSFERASE 23 U/L (12-78); ALBUMIN 2.7 G/DL (3.4-5.0); ALBUMIN/GLOBULIN RATIO 0.4 (1.0-2.7); ALKALINE PHOSPHATASE 111 U/L (46-116); ANION GAP 7 mmol/L (5-15); ASPARTATE AMINO TRANSFERASE 13 U/L (15-37); BILIRUBIN,TOTAL 0.1 MG/DL (0.2-1.0); BLOOD UREA NITROGEN 17 mg/dL (7-18); CALCIUM 9.3 MG/DL (8.5-10.1); CARBON DIOXIDE 26 MMOL/L (21-32); CHLORIDE 101 MMOL/L (98-107); CREATININE 0.8 MG/DL (0.55-1.30); SODIUM 134 MMOL/L (136-145)
[2018-07-11 04:00] VITALS: BP 138/71
[2018-07-11] MEDS: Vancomycin 1gm/D5W 275ml IVPB SCH ×4 (04:00→16:51)
[2018-07-11 08:00] VITALS: BP 120/86
--- NOTE | 2018-07-11 08:42 | General Progress Note ---
Assessment/Plan Problem List: (1) Fever ICD Codes: R50.9 - Fever, unspecified SNOMED: 633484784 (2) Chronic respiratory failure ICD Codes: J96.10 - Chronic respiratory failure, unspecified whether with hypoxia or hypercapnia SNOMED: 93851932 (3) Organic brain syndrome ICD Codes: F09 - Unspecified mental disorder due to known physiological condition SNOMED: 378316190 (4) Vegetative state ICD Codes: R40.3 - Persistent vegetative state SNOMED: 10675953 (5) Feeding by G-tube ICD Codes: Z93.1 - Gastrostomy status SNOMED: 087238046, 603255075 (6) Sepsis ICD Codes: A41.9 - Sepsis, unspecified organism SNOMED: 85517935 (7) Malnutrition ICD Codes: E46 - Unspecified protein-calorie malnutrition SNOMED: 66336418 (8) Sacral decubitus ulcer, stage IV ICD Codes: L89.154 - Pressure ulcer of sacral region, stage 4 SNOMED: 350818856, 894913199 (9) HCAP (healthcare-associated pneumonia) ICD Codes: J18.9 - Pneumonia, unspecified organism SNOMED: 280551499 Status: stable, progressing Assessment/Plan o2 pulm tx trach abx wound care cbc bmp promise ltach eval Subjective Constitutional: Reports: weakness Allergies: Coded Allergies: No Known Allergies (Unverified , 12/13/12) All Systems: reviewed and negative except above Subjective trach aerosol lethargic Objective Last 24 Hour Vital Signs Date Time Temp Pulse Resp B/P (MAP) Pulse Ox O2 Delivery O2 Flow Rate FiO2 07/11/18 04:00 103 07/11/18 04:00 99.7 107 20 138/71 (93) 95 99.7 07/11/18 01:23 100 T-piece 6.0 28 07/11/18 01:23 T-piece 6.0 28 07/11/18 00:00 98.8 100 20 112/75 (87) 99 98.8 07/11/18 00:00 100 07/10/18 21:00 T-piece 07/10/18 20:00 85 07/10/18 20:00 98.4 96 24 113/84 (94) 96 98.4 07/10/18 19:20 T-piece 6.0 28 07/10/18 19:20 100 T-piece 6.0 28 07/10/18 18:00 74 99/58 07/10/18 16:00 98.2 78 22 99/58 (72) 97 98.2 07/10/18 16:00 74 07/10/18 13:05 100 T-piece 6.0 28 07/10/18 13:05 T-piece 6.0 28 07/10/18 12:00 79 07/10/18 12:00 98.2 77 22 109/72 (84) 100 98.2 07/10/18 09:07 85 122/90 07/10/18 09:07 85 122/90 07/10/18 09:00 T-piece Intake and Output 07/10/18 07/11/18 19:00 07:00 Output Total 600 ml 352 ml Balance -600 ml -352 ml Output Urine Total 600 ml 350 ml Stool Total 2 ml # Bowel Movements 1 Laboratory Tests 07/11/18 02:00: White Blood Count 10.7, Red Blood Count 3.99L, Hemoglobin 10.7L, Hematocrit 32.7L, Mean Corpuscular Volume 82, Mean Corpuscular Hemoglobin 26.9L, Mean Corpuscular Hemoglobin Concent 32.8, Red Cell Distribution Width 13.2, Platelet Count 271, Mean Platelet Volume 10.8H, Neutrophils (%) (Auto) 66.9, Lymphocytes (%) (Auto) 21.1, Monocytes (%) (Auto) 8.0, Eosinophils (%) (Auto) 3.1H, Basophils (%) (Auto) 0.9, Sodium Level 134L, Potassium Level 4.0, Chloride Level 101, Carbon Dioxide Level 26, Anion Gap 7, Blood Urea Nitrogen 17, Creatinine 0.8, Estimat Glomerular Filtration Rate > 60, Glucose Level 103, Calcium Level 9.3, Phosphorus Level 3.4, Magnesium Level 1.5L, Total Bilirubin 0.1L, Aspartate Amino Transf (AST/SGOT) 13L, Alanine Aminotransferase (ALT/SGPT ) 23, Alkaline Phosphatase 111, Total Protein 8.9H, Albumin 2.7L, Globulin 6.2, Albumin/Globulin Ratio 0.4L, Vancomycin Level Trough 11.0 Height (Feet): 5 Height (Inches): 8.00 Weight (Pounds): 140 General Appearance: lethargic EENT: normal ENT inspection Neck: normal alignment Cardiovascular: normal peripheral pulses, normal rate, regular rhythm Respiratory/Chest: chest wall non-tender, lungs clear, normal breath sounds Abdomen: normal bowel sounds, non tender, soft Extremities: normal inspection Edema: no edema noted Arm (L), no edema noted Arm (R), no edema noted Leg (L), no edema noted Leg (R), no edema noted Pedal (L), no edema noted Pedal (R), no edema noted Generalized Neurologic: motor weakness Skin: normal pigmentation, warm/dry Frandy Eagle DO Jul 11, 2018 08:42
[2018-07-11] MEDS: [UNRECOGNIZED DRUG - OTHER] TOPIC SCH (09:00)
[2018-07-11] MEDS: Carvedilol 25mg Tab GT SCH ×2 (09:12→17:06)
[2018-07-11] MEDS: levETIRAcetam 500mg/5ml Liquid GT SCH ×2 (09:12→20:25)
[2018-07-11] MEDS: Pantoprazole Inj IV SCH (09:13)
[2018-07-11] MEDS: Heparin 5000 units/ml inj SUBQ SCH ×2 (09:14→20:24)
[2018-07-11 12:00] VITALS: BP 116/78
--- NOTE | 2018-07-11 12:57 | Nephrology Progress Note ---
Assessment/Plan Problem List: (1) Chronic respiratory failure (2) Organic brain syndrome (3) HCAP (healthcare-associated pneumonia) (4) Anemia Assessment Pneumonia Low Na ? depletional Anemia Trach to O2 no UA Sz disorders Plan Anemia perez Low Na perez per orders Objective Objective Last 24 Hour Vital Signs Date Time Temp Pulse Resp B/P (MAP) Pulse Ox O2 Delivery O2 Flow Rate FiO2 07/11/18 12:00 98.8 99 18 116/78 (91) 100 98.8 07/11/18 09:13 99 120/86 07/11/18 09:12 99 120/86 07/11/18 09:00 T-piece 07/11/18 08:00 98.2 99 20 120/86 (97) 100 98.2 07/11/18 08:00 102 07/11/18 04:00 103 07/11/18 04:00 99.7 107 20 138/71 (93) 95 99.7 07/11/18 01:23 100 T-piece 6.0 28 07/11/18 01:23 T-piece 6.0 28 07/11/18 00:00 98.8 100 20 112/75 (87) 99 98.8 07/11/18 00:00 100 07/10/18 21:00 T-piece 07/10/18 20:00 85 07/10/18 20:00 98.4 96 24 113/84 (94) 96 98.4 07/10/18 19:20 T-piece 6.0 28 07/10/18 19:20 100 T-piece 6.0 28 07/10/18 18:00 74 99/58 07/10/18 16:00 98.2 78 22 99/58 (72) 97 98.2 07/10/18 16:00 74 07/10/18 13:05 100 T-piece 6.0 28 07/10/18 13:05 T-piece 6.0 28 Intake and Output 07/10/18 07/11/18 19:00 07:00 Output Total 600 ml 352 ml Balance -600 ml -352 ml Output Urine Total 600 ml 350 ml Stool Total 2 ml # Bowel Movements 1 Laboratory Tests 07/11/18 02:00: White Blood Count 10.7, Red Blood Count 3.99L, Hemoglobin 10.7L, Hematocrit 32.7L, Mean Corpuscular Volume 82, Mean Corpuscular Hemoglobin 26.9L, Mean Corpuscular Hemoglobin Concent 32.8, Red Cell Distribution Width 13.2, Platelet Count 271, Mean Platelet Volume 10.8H, Neutrophils (%) (Auto) 66.9, Lymphocytes (%) (Auto) 21.1, Monocytes (%) (Auto) 8.0, Eosinophils (%) (Auto) 3.1H, Basophils (%) (Auto) 0.9, Sodium Level 134L, Potassium Level 4.0, Chloride Level 101, Carbon Dioxide Level 26, Anion Gap 7, Blood Urea Nitrogen 17, Creatinine 0.8, Estimat Glomerular Filtration Rate > 60, Glucose Level 103, Calcium Level 9.3, Phosphorus Level 3.4, Magnesium Level 1.5L, Total Bilirubin 0.1L, Aspartate Amino Transf (AST/SGOT) 13L, Alanine Aminotransferase (ALT/SGPT ) 23, Alkaline Phosphatase 111, Total Protein 8.9H, Albumin 2.7L, Globulin 6.2, Albumin/Globulin Ratio 0.4L, Vancomycin Level Trough 11.0 Height (Feet): 5 Height (Inches): 8.00 Weight (Pounds): 140 Ian Lisa MD Jul 11, 2018 12:57
[2018-07-11 13:26] LABS: FERRITIN 603 NG/ML (8-388)
[2018-07-11 13:32] LABS: APPEARANCE,URINE CLEAR; BILIRUBIN, URINE NEGATIVE (NEGATIVE); COLOR,URINE PALE YELLOW; GLUCOSE, URINE (UA) NEGATIVE (NEGATIVE); KETONES,URINE NEGATIVE (NEGATIVE); LEUKOCYTE ESTERASE ,URINE 2+ (NEGATIVE); NITRITE,URINE NEGATIVE (NEGATIVE); PH,URINE 8 (4.5-8.0); PROTEIN,URINE NEGATIVE (NEGATIVE); UROBILINOGEN,URINE NORMAL MG/DL (0.0-1.0)
--- NOTE | 2018-07-11 13:47 | General Surgery Progress Note ---
General Surgery-Progress Note Subjective Additional Comments leukocytosis resolved. no acute events. wounds with proper care Objective Last 24 Hour Vital Signs Date Time Temp Pulse Resp B/P (MAP) Pulse Ox O2 Delivery O2 Flow Rate FiO2 07/11/18 12:00 98.8 99 18 116/78 (91) 100 98.8 07/11/18 09:13 99 120/86 07/11/18 09:12 99 120/86 07/11/18 09:00 T-piece 07/11/18 08:00 98.2 99 20 120/86 (97) 100 98.2 07/11/18 08:00 102 07/11/18 04:00 103 07/11/18 04:00 99.7 107 20 138/71 (93) 95 99.7 07/11/18 01:23 100 T-piece 6.0 28 07/11/18 01:23 T-piece 6.0 28 07/11/18 00:00 98.8 100 20 112/75 (87) 99 98.8 07/11/18 00:00 100 07/10/18 21:00 T-piece 07/10/18 20:00 85 07/10/18 20:00 98.4 96 24 113/84 (94) 96 98.4 07/10/18 19:20 T-piece 6.0 28 07/10/18 19:20 100 T-piece 6.0 28 07/10/18 18:00 74 99/58 07/10/18 16:00 98.2 78 22 99/58 (72) 97 98.2 07/10/18 16:00 74 I&O Intake and Output 07/10/18 07/11/18 19:00 07:00 Output Total 600 ml 352 ml Balance -600 ml -352 ml Output Urine Total 600 ml 350 ml Stool Total 2 ml # Bowel Movements 1 Dressing: saturated Wound: clean Drains: other Cardiovascular: RSR Respiratory: clear, other - trach Abdomen: soft, distended, present bowel sounds Extremities: other Laboratory Tests Test 07/11/18 02:00 07/11/18 13:10 White Blood Count 10.7 K/UL (4.8-10.8) Red Blood Count 3.99 M/UL (4.70-6.10) L Hemoglobin 10.7 G/DL (14.2-18.0) L Hematocrit 32.7 % (42.0-52.0) L Mean Corpuscular Volume 82 FL (80-99) Mean Corpuscular Hemoglobin 26.9 PG (27.0-31.0) L Mean Corpuscular Hemoglobin Concent 32.8 G/DL (32.0-36.0) Red Cell Distribution Width 13.2 % (11.6-14.8) Platelet Count 271 K/UL (150-450) Mean Platelet Volume 10.8 FL (6.5-10.1) H Neutrophils (%) (Auto) 66.9 % (45.0-75.0) Lymphocytes (%) (Auto) 21.1 % (20.0-45.0) Monocytes (%) (Auto) 8.0 % (1.0-10.0) Eosinophils (%) (Auto) 3.1 % (0.0-3.0) H Basophils (%) (Auto) 0.9 % (0.0-2.0) Sodium Level 134 MMOL/L (136-145) L Potassium Level 4.0 MMOL/L (3.5-5.1) Chloride Level 101 MMOL/L (98-107) Carbon Dioxide Level 26 MMOL/L (21-32) Anion Gap 7 mmol/L (5-15) Blood Urea Nitrogen 17 mg/dL (7-18) Creatinine 0.8 MG/DL (0.55-1.30) Estimat Glomerular Filtration Rate > 60 mL/min (>60) Glucose Level 103 MG/DL (74-106) Osmolality Pending Uric Acid 5.9 MG/DL (2.6-7.2) Calcium Level 9.3 MG/DL (8.5-10.1) Phosphorus Level 3.4 MG/DL (2.5-4.9) Magnesium Level 1.5 MG/DL (1.8-2.4) L Iron Level Pending Unsaturated Iron Binding Pending Ferritin 603 NG/ML (8-388) H Total Bilirubin 0.1 MG/DL (0.2-1.0) L Aspartate Amino Transf (AST/SGOT) 13 U/L (15-37) L Alanine Aminotransferase (ALT/SGPT) 23 U/L (12-78) Alkaline Phosphatase 111 U/L (46-116) Total Protein 8.9 G/DL (6.4-8.2) H Albumin 2.7 G/DL (3.4-5.0) L Globulin 6.2 g/dL Albumin/Globulin Ratio 0.4 (1.0-2.7) L Vitamin B12 Level Pending Folate Pending Vancomycin Level Trough 11.0 ug/mL (5.0-12.0) Urine Color Pale yellow Urine Appearance Clear Urine pH 8 (4.5-8.0) Urine Specific [place] 1.015 (1.005-1.035) Urine Protein Negative (NEGATIVE) Urine Glucose (UA) Negative (NEGATIVE) Urine Ketones Negative (NEGATIVE) Urine Blood 1+ (NEGATIVE) H Urine Nitrite Negative (NEGATIVE) Urine Bilirubin Negative (NEGATIVE) Urine Urobilinogen Normal MG/DL (0.0-1.0) Urine Leukocyte Esterase 2+ (NEGATIVE) H Urine RBC 2-4 /HPF (0 - 0) H Urine WBC 5-10 /HPF (0 - 0) H Urine Squamous Epithelial Cells Occasional /LPF Urine Amorphous Sediment Few /LPF (NONE) H Urine Bacteria Occasional /HPF (NONE) Urine Osmolality Pending Urine Random Sodium 93 mmol/L (20-110) Plan Problems: (1) Sacral decubitus ulcer, stage IV Assessment & Plan: 58M correction resident with Stage IV full thickness pressure injury sacrum 5cm x 7cm x3-4cm with undermining. Wound granular with scattered but trace slough .No odor noted (+) macerated edges and dark borders .Periwound is dry without erythema or induration. no signs of active infection. mild serous drainage. as compared to prior visit wound has progressed. wound present upon admission as documented in wound care photos and will be cared for while in hospital. Plan: Cleanse Sacral wound with Saline Will order Plurogel to wound when available. loosely pack with Soft wanda or Loose gauze. Apply Cavilon to Borders.Cover with Biatain drsg Daily and Prn. Surface support Air Fluidized mattress. Reposition at least every 2hours off back. Off-load Heels with Pillow. Greg Swift Jul 11, 2018 13:47
[2018-07-11 13:58] LABS: % IRON SATURATION 28 % (15-50); IRON 58 ug/dL (50-175); TOTAL IRON BINDING CAPACITY 207 ug/dL (250-450)
--- NOTE | 2018-07-11 13:58 | Pulmonology Progress Note ---
Assessment/Plan Assessment/Plan PULMONARY PROGRESS NOTE Assessment/Plan Problems: (1) Sepsis (2) HCAP (healthcare-associated pneumonia) (3) Severe protein-calorie malnutrition (4) Feeding by G-tube (5) Vegetative state (6) Organic brain syndrome Respiratory: CXR noted Cardiac: continue to monitor HR/BP Renal: F/U I&O, check electrolytes Infectious Disease: check cultures, add antibiotics Gastrointestinal: continue feedings/current rate Endocrine: monitor blood sugar Hematologic: monitor H/H Neurologic: PRN Ativan Affect: PRN ativan Notes Reviewed: station gateman, renal, ID Subjective ROS Limited/Unobtainable: Yes Constitutional: Reports: no symptoms HEENT: Repors: no symptoms Respiratory: Reports: no symptoms Allergies: Coded Allergies: No Known Allergies (Unverified , 12/13/12) Objective Last 24 Hour Vital Signs Date Time Temp Pulse Resp B/P (MAP) Pulse Ox O2 Delivery O2 Flow Rate FiO2 07/10/18 09:07 85 122/90 07/10/18 09:07 85 122/90 07/10/18 09:00 T-piece 07/10/18 08:00 84 07/10/18 08:00 97.9 85 22 122/90 (101) 94 97.9 07/10/18 07:52 99 T-piece 6.0 28 07/10/18 07:52 T-piece 6.0 28 07/10/18 04:00 96 07/10/18 04:00 98.2 95 20 117/85 (96) 97 98.2 07/10/18 01:09 T-piece 6.0 28 07/10/18 01:08 98 T-piece 6.0 28 07/10/18 00:00 93 07/10/18 00:00 98.2 99 20 117/84 (95) 96 98.2 07/09/18 21:00 T-piece 2.0 07/09/18 20:50 Trach Collar 6.0 28 07/09/18 20:49 98 T-piece 6.0 28 07/09/18 20:00 99 07/09/18 20:00 98.1 99 20 123/95 (104) 99 98.1 07/09/18 18:17 104 144/101 07/09/18 16:00 98.1 109 24 144/101 (115) 99 98.1 07/09/18 16:00 104 07/09/18 15:24 T-piece 2.0 07/09/18 14:00 106 07/09/18 14:00 98.1 108 24 135/95 (108) 100 98.1 07/09/18 14:00 98.4 92 20 130/95 100 T-piece 2.0 98.4 07/09/18 12:00 92 20 130/95 100 T-piece 2.0 Intake and Output 07/09/18 07/10/18 19:00 07:00 Intake Total 55 ml 166.667 ml Output Total 325 ml 375 ml Balance -270 ml -208.333 ml Intake Oral 0 ml IV Total 55 ml 166.667 ml Output Urine Total 325 ml 375 ml # Voids 1 # Bowel Movements 1 General Appearance: no acute distress HEENT: normocephalic, atraumatic Respiratory/Chest: chest wall non-tender, crackles/rales Cardiovascular: normal peripheral pulses, normal rate, regular rhythm Abdomen: normal bowel sounds, soft, non tender, no scars Extremities: no cyanosis Neurologic/Psychiatric: incident commander II-XII grossly normal Current Medications Medications (Trade) Dose Ordered Sig/Mariel Route PRN Reason Start Time Stop Time Status Last Admin Dose Admin Acetaminophen (Tylenol) 650 mg Q4H PRN ORAL FEVER 07/09/18 11:45 08/08/18 11:44 Albuterol/ Ipratropium (Albuterol/ Ipratropium) 3 ml Q4H PRN HHN Shortness of Breath 07/09/18 11:45 07/14/18 11:44 Amlodipine Besylate (Norvasc) 10 mg DAILY GT 07/10/18 09:00 08/09/18 08:59 07/10/18 09:07 Carvedilol (Coreg) 25 mg TWICE A DAY GT 07/09/18 18:00 08/08/18 17:59 07/10/18 09:07 Ceftriaxone Sodium 2 gm/ Dextrose 55 ml @ 110 mls/hr Q24H IVPB 07/09/18 16:00 07/16/18 15:59 07/09/18 17:01 Clonidine HCl (Catapres Tab) 0.1 mg Q8H PRN GT For High Blood Pressure 07/09/18 11:45 08/08/18 11:44 Dextrose (Dextrose 50%) 25 ml Q30M PRN IV Hypoglycemia 07/09/18 11:45 08/08/18 11:41 Dextrose (Dextrose 50%) 50 ml Q30M PRN IV hypoglycemia 07/09/18 11:45 08/08/18 11:44 Heparin Sodium (Porcine) (Heparin 5000 units/ml) 5,000 units EVERY 12 HOURS SUBQ 07/09/18 21:00 08/08/18 20:59 07/10/18 09:07 Levetiracetam (Keppra) 1,500 mg Q12HR GT 07/10/18 21:00 08/08/18 13:00 Lorazepam (Ativan 2mg/ml 1ml) 2 mg Q2H PRN IV For Anxiety 07/09/18 11:45 07/16/18 11:44 Morphine Sulfate (Morphine Sulfate) 4 mg Q4H PRN IVP Severe Pain (Pain Scale 7-10) 07/09/18 11:45 07/16/18 11:44 Non-Formulary Medication (Non-Formulary Med) 1 ea DAILY ORAL 07/11/18 09:00 08/10/18 08:59 UNV Ondansetron HCl (Zofran) 4 mg Q6H PRN IVP Nausea & Vomiting 07/09/18 11:45 08/08/18 11:44 Pantoprazole (Protonix) 40 mg DAILY IV 07/10/18 09:00 08/09/18 08:59 07/10/18 09:07 Polyethylene Glycol (Miralax) 17 gm DAILYPRN PRN ORAL Constipation 07/09/18 11:45 08/08/18 11:44 Vancomycin HCl (Vanco rx to dose) 1 ea DAILY PRN MISC PER PHARM 07/09/18 13:15 08/08/18 13:14 Vancomycin/Sodium Chloride 250 ml @ 166.667 mls/hr Q12H IVPB 07/09/18 15:00 07/14/18 14:59 07/10/18 03:10 Subjective ROS Limited/Unobtainable: Yes Allergies: Coded Allergies: No Known Allergies (Unverified , 12/13/12) Objective Last 24 Hour Vital Signs Date Time Temp Pulse Resp B/P (MAP) Pulse Ox O2 Delivery O2 Flow Rate FiO2 07/11/18 12:00 98.8 99 18 116/78 (91) 100 98.8 07/11/18 09:13 99 120/86 07/11/18 09:12 99 120/86 07/11/18 09:00 T-piece 07/11/18 08:00 98.2 99 20 120/86 (97) 100 98.2 07/11/18 08:00 102 07/11/18 04:00 103 07/11/18 04:00 99.7 107 20 138/71 (93) 95 99.7 07/11/18 01:23 100 T-piece 6.0 28 07/11/18 01:23 T-piece 6.0 28 07/11/18 00:00 98.8 100 20 112/75 (87) 99 98.8 07/11/18 00:00 100 07/10/18 21:00 T-piece 07/10/18 20:00 85 07/10/18 20:00 98.4 96 24 113/84 (94) 96 98.4 07/10/18 19:20 T-piece 6.0 28 07/10/18 19:20 100 T-piece 6.0 28 07/10/18 18:00 74 99/58 07/10/18 16:00 98.2 78 22 99/58 (72) 97 98.2 07/10/18 16:00 74 Intake and Output 07/10/18 07/11/18 19:00 07:00 Output Total 600 ml 352 ml Balance -600 ml -352 ml Output Urine Total 600 ml 350 ml Stool Total 2 ml # Bowel Movements 1 Microbiology Date/Time Source Procedure Growth Status 07/09/18 10:00 Blood Blood Culture - Preliminary NO GROWTH AFTER 24 HOURS Resulted 07/09/18 09:55 Blood Blood Culture - Preliminary NO GROWTH AFTER 24 HOURS Resulted 07/09/18 21:00 Sputum Gram Stain - Final Resulted 07/09/18 21:00 Sputum Culture - Preliminary Gram Negative Bacillus 1 Resulted 07/09/18 10:06 Nasal Nares MRSA Culture - Final NO METHICILLIN RESISTANT STAPH AUREUS... Complete Laboratory Tests 07/11/18 02:00: White Blood Count 10.7, Red Blood Count 3.99L, Hemoglobin 10.7L, Hematocrit 32.7L, Mean Corpuscular Volume 82, Mean Corpuscular Hemoglobin 26.9L, Mean Corpuscular Hemoglobin Concent 32.8, Red Cell Distribution Width 13.2, Platelet Count 271, Mean Platelet Volume 10.8H, Neutrophils (%) (Auto) 66.9, Lymphocytes (%) (Auto) 21.1, Monocytes (%) (Auto) 8.0, Eosinophils (%) (Auto) 3.1H, Basophils (%) (Auto) 0.9, Sodium Level 134L, Potassium Level 4.0, Chloride Level 101, Carbon Dioxide Level 26, Anion Gap 7, Blood Urea Nitrogen 17, Creatinine 0.8, Estimat Glomerular Filtration Rate > 60, Glucose Level 103, Osmolality [Pending], Uric Acid 5.9, Calcium Level 9.3, Phosphorus Level 3.4, Magnesium Level 1.5L, Iron Level [Pending], Unsaturated Iron Binding [Pending], Ferritin 603H, Total Bilirubin 0.1L, Aspartate Amino Transf (AST/SGOT) 13L, Alanine Aminotransferase (ALT/SGPT) 23, Alkaline Phosphatase 111, Total Protein 8.9H, Albumin 2.7L, Globulin 6.2, Albumin/Globulin Ratio 0.4L, Vitamin B12 Level [Pending], Folate [Pending], Vancomycin Level Trough 11.0 07/11/18 13:10: Urine Color Pale yellow, Urine Appearance Clear, Urine pH 8, Urine Specific [place] 1.015, Urine Protein Negative, Urine Glucose (UA) Negative, Urine Ketones Negative, Urine Blood 1+H, Urine Nitrite Negative, Urine Bilirubin Negative, Urine Urobilinogen Normal, Urine Leukocyte Esterase 2+H, Urine RBC 2- 4H, Urine WBC 5-10H, Urine Squamous Epithelial Cells Occasional, Urine Amorphous Sediment FewH, Urine Bacteria Occasional, Urine Osmolality [Pending], Urine Random Sodium 93 Current Medications Medications (Trade) Dose Ordered Sig/Mariel Route PRN Reason Start Time Stop Time Status Last Admin Dose Admin Acetaminophen (Tylenol) 650 mg Q4H PRN ORAL FEVER 07/09/18 11:45 08/08/18 11:44 Albuterol/ Ipratropium (Albuterol/ Ipratropium) 3 ml Q4H PRN HHN Shortness of Breath 07/09/18 11:45 07/14/18 11:44 Amlodipine Besylate (Norvasc) 10 mg DAILY GT 07/10/18 09:00 08/09/18 08:59 07/11/18 09:13 Carvedilol (Coreg) 25 mg TWICE A DAY GT 07/09/18 18:00 08/08/18 17:59 07/11/18 09:12 Ceftriaxone Sodium 2 gm/ Dextrose 55 ml @ 110 mls/hr Q24H IVPB 07/09/18 16:00 07/16/18 15:59 07/10/18 16:57 Clonidine HCl (Catapres Tab) 0.1 mg Q8H PRN GT For High Blood Pressure 07/09/18 11:45 08/08/18 11:44 Dextrose (Dextrose 50%) 25 ml Q30M PRN IV Hypoglycemia 07/09/18 11:45 08/08/18 11:41 Dextrose (Dextrose 50%) 50 ml Q30M PRN IV hypoglycemia 07/09/18 11:45 08/08/18 11:44 Heparin Sodium (Porcine) (Heparin 5000 units/ml) 5,000 units EVERY 12 HOURS SUBQ 07/09/18 21:00 08/08/18 20:59 07/11/18 09:14 Levetiracetam (Keppra) 1,500 mg Q12HR GT 07/10/18 21:00 08/08/18 13:00 07/11/18 09:12 Lorazepam (Ativan 2mg/ml 1ml) 2 mg Q2H PRN IV For Anxiety 07/09/18 11:45 07/16/18 11:44 Morphine Sulfate (Morphine Sulfate) 4 mg Q4H PRN IVP Severe Pain (Pain Scale 7-10) 07/09/18 11:45 07/16/18 11:44 Non-Formulary Medication (Non-Formulary Med) 1 ea DAILY TOPIC 07/10/18 13:00 08/09/18 12:59 Ondansetron HCl (Zofran) 4 mg Q6H PRN IVP Nausea & Vomiting 07/09/18 11:45 08/08/18 11:44 Pantoprazole (Protonix) 40 mg DAILY IV 07/10/18 09:00 08/09/18 08:59 07/11/18 09:13 Polyethylene Glycol (Miralax) 17 gm DAILYPRN PRN ORAL Constipation 07/09/18 11:45 08/08/18 11:44 Vancomycin HCl (Vanco rx to dose) 1 ea DAILY PRN MISC PER PHARM 07/09/18 13:15 08/08/18 13:14 Vancomycin HCl 1 gm/Dextrose 275 ml @ 183.708 mls/hr Q12H IVPB 07/11/18 04:00 07/16/18 03:59 07/11/18 04:00 Duke Reed MD Jul 11, 2018 13:58
[2018-07-11] MEDS ORDERED: NS Irrig 1000ml ONE (15:24)
[2018-07-11] MEDS ORDERED: D5W 275ml ONE (15:24)
[2018-07-11] MEDS: cefTRIAXone 2 GM in D5W 55 ML IVPB SCH (15:58)
[2018-07-11 16:00] VITALS: BP 116/80
[2018-07-11 20:00] VITALS: BP 108/85
--- NOTE | 2018-07-11 20:36 | Infectious Diseases Prog Note ---
Assessment/Plan Assessment/Plan ASSESSMENT: The patient is a 58-year-old male with: Fever Leukocytosis, sp Probable sepsis. Probable pneumonia Scx: GNR 07/10 CXR: Asymmetric increased density in the inferior left lung region, likely at least partially secondary to patient rotation and chest wall soft tissues, though atelectasis, asymmetric edema, or early pneumonia are not excluded. Stage IV sacral decubitus, grossly not infected. Ro Probable urinary tract infection. History of chronic [place] catheter Cardiomyopathy. Liver cirrhosis. Diabetes. Hypertension. Status post trach. History of gastroesophageal reflux disease. History of encephalopathy. Status post PEG placement. PLAN: - Start the patient on IV Zosyn and DC Rocephin d# 2 , DC Vanco d# 2 - Monitor CBC. - Monitor BMP. - Monitor cultures (blood, urine, and sputum). - Monitor chest x-ray. Subjective Constitutional: Reports: fever Allergies: Coded Allergies: No Known Allergies (Unverified , 12/13/12) Objective Vital Signs Last 24 Hour Vital Signs Date Time Temp Pulse Resp B/P (MAP) Pulse Ox O2 Delivery O2 Flow Rate FiO2 07/11/18 19:45 98 T-piece 6.0 28 07/11/18 19:45 T-piece 6.0 28 07/11/18 17:06 104 126/88 07/11/18 17:05 T-piece 6.0 28 07/11/18 17:05 93 T-piece 6.0 28 07/11/18 16:00 99.0 92 20 116/80 (92) 96 99.0 07/11/18 16:00 93 07/11/18 12:00 98.8 99 18 116/78 (91) 100 98.8 07/11/18 12:00 71 07/11/18 09:13 99 120/86 07/11/18 09:12 99 120/86 07/11/18 09:00 T-piece 07/11/18 08:00 98.2 99 20 120/86 (97) 100 98.2 07/11/18 08:00 102 07/11/18 04:00 103 07/11/18 04:00 99.7 107 20 138/71 (93) 95 99.7 07/11/18 01:23 100 T-piece 6.0 28 07/11/18 01:23 T-piece 6.0 28 07/11/18 00:00 98.8 100 20 112/75 (87) 99 98.8 07/11/18 00:00 100 07/10/18 21:00 T-piece Height (Feet): 5 Height (Inches): 8.00 Weight (Pounds): 140 HEENT: anicteric Respiratory/Chest: normal breath sounds Cardiovascular: regularly irregular Abdomen: no mass Microbiology Date/Time Source Procedure Growth Status 07/09/18 10:00 Blood Blood Culture - Preliminary NO GROWTH AFTER 24 HOURS Resulted 07/09/18 09:55 Blood Blood Culture - Preliminary NO GROWTH AFTER 24 HOURS Resulted 07/09/18 21:00 Sputum Gram Stain - Final Resulted 07/09/18 21:00 Sputum Culture - Preliminary Gram Negative Bacillus 1 Resulted 07/09/18 10:06 Nasal Nares MRSA Culture - Final NO METHICILLIN RESISTANT STAPH AUREUS... Complete Laboratory Tests Test 07/11/18 02:00 07/11/18 13:10 White Blood Count 10.7 K/UL (4.8-10.8) Red Blood Count 3.99 M/UL (4.70-6.10) L Hemoglobin 10.7 G/DL (14.2-18.0) L Hematocrit 32.7 % (42.0-52.0) L Mean Corpuscular Volume 82 FL (80-99) Mean Corpuscular Hemoglobin 26.9 PG (27.0-31.0) L Mean Corpuscular Hemoglobin Concent 32.8 G/DL (32.0-36.0) Red Cell Distribution Width 13.2 % (11.6-14.8) Platelet Count 271 K/UL (150-450) Mean Platelet Volume 10.8 FL (6.5-10.1) H Neutrophils (%) (Auto) 66.9 % (45.0-75.0) Lymphocytes (%) (Auto) 21.1 % (20.0-45.0) Monocytes (%) (Auto) 8.0 % (1.0-10.0) Eosinophils (%) (Auto) 3.1 % (0.0-3.0) H Basophils (%) (Auto) 0.9 % (0.0-2.0) Sodium Level 134 MMOL/L (136-145) L Potassium Level 4.0 MMOL/L (3.5-5.1) Chloride Level 101 MMOL/L (98-107) Carbon Dioxide Level 26 MMOL/L (21-32) Anion Gap 7 mmol/L (5-15) Blood Urea Nitrogen 17 mg/dL (7-18) Creatinine 0.8 MG/DL (0.55-1.30) Estimat Glomerular Filtration Rate > 60 mL/min (>60) Glucose Level 103 MG/DL (74-106) Osmolality 289 mOsm/kg (297-317) L Uric Acid 5.9 MG/DL (2.6-7.2) Calcium Level 9.3 MG/DL (8.5-10.1) Phosphorus Level 3.4 MG/DL (2.5-4.9) Magnesium Level 1.5 MG/DL (1.8-2.4) L Iron Level 58 ug/dL (50-175) Total Iron Binding Capacity 207 ug/dL (250-450) L Percent Iron Saturation 28 % (15-50) Unsaturated Iron Binding 149 ug/dL (112-346) Ferritin 603 NG/ML (8-388) H Total Bilirubin 0.1 MG/DL (0.2-1.0) L Aspartate Amino Transf (AST/SGOT) 13 U/L (15-37) L Alanine Aminotransferase (ALT/SGPT) 23 U/L (12-78) Alkaline Phosphatase 111 U/L (46-116) Total Protein 8.9 G/DL (6.4-8.2) H Albumin 2.7 G/DL (3.4-5.0) L Globulin 6.2 g/dL Albumin/Globulin Ratio 0.4 (1.0-2.7) L Vitamin B12 Level 1315 PG/ML (193-986) H Folate 41.3 NG/ML (8.6-58.9) Vancomycin Level Trough 11.0 ug/mL (5.0-12.0) Urine Color Pale yellow Urine Appearance Clear Urine pH 8 (4.5-8.0) Urine Specific [place] 1.015 (1.005-1.035) Urine Protein Negative (NEGATIVE) Urine Glucose (UA) Negative (NEGATIVE) Urine Ketones Negative (NEGATIVE) Urine Blood 1+ (NEGATIVE) H Urine Nitrite Negative (NEGATIVE) Urine Bilirubin Negative (NEGATIVE) Urine Urobilinogen Normal MG/DL (0.0-1.0) Urine Leukocyte Esterase 2+ (NEGATIVE) H Urine RBC 2-4 /HPF (0 - 0) H Urine WBC 5-10 /HPF (0 - 0) H Urine Squamous Epithelial Cells Occasional /LPF Urine Amorphous Sediment Few /LPF (NONE) H Urine Bacteria Occasional /HPF (NONE) Urine Osmolality 556 mOsm/kg (429-449) H Urine Random Sodium 93 mmol/L (20-110) Current Medications Medications (Trade) Dose Ordered Sig/Mariel Route PRN Reason Start Time Stop Time Status Last Admin Dose Admin Acetaminophen (Tylenol) 650 mg Q4H PRN ORAL FEVER 07/09/18 11:45 08/08/18 11:44 Albuterol/ Ipratropium (Albuterol/ Ipratropium) 3 ml Q4H PRN HHN Shortness of Breath 07/09/18 11:45 07/14/18 11:44 Amlodipine Besylate (Norvasc) 10 mg DAILY GT 07/10/18 09:00 08/09/18 08:59 07/11/18 09:13 Carvedilol (Coreg) 25 mg TWICE A DAY GT 07/09/18 18:00 08/08/18 17:59 07/11/18 17:06 Ceftriaxone Sodium 2 gm/ Dextrose 55 ml @ 110 mls/hr Q24H IVPB 07/09/18 16:00 07/16/18 15:59 07/11/18 15:58 Clonidine HCl (Catapres Tab) 0.1 mg Q8H PRN GT For High Blood Pressure 07/09/18 11:45 08/08/18 11:44 Dextrose (Dextrose 50%) 25 ml Q30M PRN IV Hypoglycemia 07/09/18 11:45 08/08/18 11:41 Dextrose (Dextrose 50%) 50 ml Q30M PRN IV hypoglycemia 07/09/18 11:45 08/08/18 11:44 Heparin Sodium (Porcine) (Heparin 5000 units/ml) 5,000 units EVERY 12 HOURS SUBQ 07/09/18 21:00 08/08/18 20:59 07/11/18 20:24 Levetiracetam (Keppra) 1,500 mg Q12HR GT 07/10/18 21:00 08/08/18 13:00 07/11/18 20:25 Lorazepam (Ativan 2mg/ml 1ml) 2 mg Q2H PRN IV For Anxiety 07/09/18 11:45 07/16/18 11:44 Morphine Sulfate (Morphine Sulfate) 4 mg Q4H PRN IVP Severe Pain (Pain Scale 7-10) 07/09/18 11:45 07/16/18 11:44 Non-Formulary Medication (Non-Formulary Med) 1 ea DAILY TOPIC 07/10/18 13:00 08/09/18 12:59 Ondansetron HCl (Zofran) 4 mg Q6H PRN IVP Nausea & Vomiting 07/09/18 11:45 08/08/18 11:44 Pantoprazole (Protonix) 40 mg DAILY IV 07/10/18 09:00 08/09/18 08:59 07/11/18 09:13 Polyethylene Glycol (Miralax) 17 gm DAILYPRN PRN ORAL Constipation 07/09/18 11:45 08/08/18 11:44 Vancomycin HCl (Vanco rx to dose) 1 ea DAILY PRN MISC PER PHARM 07/09/18 13:15 08/08/18 13:14 Vancomycin HCl 1 gm/Dextrose 275 ml @ 183.708 mls/hr Q12H IVPB 07/11/18 04:00 07/16/18 03:59 07/11/18 16:51 Jonathon Casanova MD Jul 11, 2018 20:36
[2018-07-11] MEDS ORDERED: Piperacillin/Tazobactam 3.375 GM in NS 110 ML IVPB SCH (23:00)
[2018-07-12] VITALS: BP 118/83
[2018-07-12 04:00] VITALS: BP 123/86
[2018-07-12 07:32] LABS: BASOPHILS % (AUTO) 0.4 % (0.0-2.0); EOSINOPHILS % (AUTO) 1.7 % (0.0-3.0); HEMATOCRIT 31.9 % (42.0-52.0); HEMOGLOBIN 10.6 G/DL (14.2-18.0); LYMPHOCYTES % (AUTO) 14.1 % (20.0-45.0); MEAN CORPUSCULAR VOLUME 83 FL (80-99); MONOCYTES % (AUTO) 5.7 % (1.0-10.0); PLATELET COUNT 293 K/UL (150-450); RED BLOOD COUNT 3.87 M/UL (4.70-6.10); RED CELL DISTRIBUTION WIDTH 13.2 % (11.6-14.8)
[2018-07-12 07:43] LABS: ANION GAP 8 mmol/L (5-15); BLOOD UREA NITROGEN 17 mg/dL (7-18); CALCIUM 9.2 MG/DL (8.5-10.1); CARBON DIOXIDE 27 MMOL/L (21-32); CHLORIDE 103 MMOL/L (98-107); CREATININE 0.9 MG/DL (0.55-1.30); POTASSIUM 3.9 MMOL/L (3.5-5.1); SODIUM 138 MMOL/L (136-145)
[2018-07-12 08:00] VITALS: BP 141/96
[2018-07-12] MEDS ORDERED: Piperacillin/Tazobactam 3.375 GM in D5W 110 ML IVPB SCH ×3 (08:00)
[2018-07-12] MEDS: [UNRECOGNIZED DRUG - OTHER] TOPIC SCH (09:00)
[2018-07-12] MEDS: Carvedilol 25mg Tab GT SCH ×2 (09:17→17:29)
[2018-07-12] MEDS: Pantoprazole Inj IV SCH (09:17)
[2018-07-12] MEDS: levETIRAcetam 500mg/5ml Liquid GT SCH ×2 (09:17→21:06)
[2018-07-12] MEDS: Heparin 5000 units/ml inj SUBQ SCH ×2 (09:19→21:07)
--- NOTE | 2018-07-12 11:44 | General Progress Note ---
Assessment/Plan Problem List: (1) Fever ICD Codes: R50.9 - Fever, unspecified SNOMED: 126916790 (2) Chronic respiratory failure ICD Codes: J96.10 - Chronic respiratory failure, unspecified whether with hypoxia or hypercapnia SNOMED: 92590881 (3) Organic brain syndrome ICD Codes: F09 - Unspecified mental disorder due to known physiological condition SNOMED: 979965251 (4) Vegetative state ICD Codes: R40.3 - Persistent vegetative state SNOMED: 36058581 (5) Feeding by G-tube ICD Codes: Z93.1 - Gastrostomy status SNOMED: 175774858, 060923464 (6) Sepsis ICD Codes: A41.9 - Sepsis, unspecified organism SNOMED: 23730068 (7) Malnutrition ICD Codes: E46 - Unspecified protein-calorie malnutrition SNOMED: 27780159 (8) Sacral decubitus ulcer, stage IV ICD Codes: L89.154 - Pressure ulcer of sacral region, stage 4 SNOMED: 623790617, 245962170 (9) HCAP (healthcare-associated pneumonia) ICD Codes: J18.9 - Pneumonia, unspecified organism SNOMED: 716204569 Status: unchanged Assessment/Plan o2 pulm tx trach abx wound care cbc bmp promise ltach eval Subjective Constitutional: Reports: weakness Allergies: Coded Allergies: No Known Allergies (Unverified , 12/13/12) All Systems: reviewed and negative except above Subjective trach aerosol lethargic Objective Last 24 Hour Vital Signs Date Time Temp Pulse Resp B/P (MAP) Pulse Ox O2 Delivery O2 Flow Rate FiO2 07/12/18 09:17 91 141/96 07/12/18 09:17 91 141/96 07/12/18 09:00 T-piece 07/12/18 08:00 98.9 91 18 141/96 (111) 99 98.9 07/12/18 07:47 T-piece 6.0 28 07/12/18 07:46 96 T-piece 6.0 28 07/12/18 04:00 98.9 101 18 123/86 (98) 98 98.9 07/12/18 04:00 103 07/12/18 01:08 T-piece 6.0 28 07/12/18 01:08 97 T-piece 6.0 28 07/12/18 00:00 99.0 86 19 118/83 (95) 98 99.0 07/12/18 00:00 88 07/11/18 21:00 T-piece 07/11/18 20:30 99.8 99.8 07/11/18 20:00 92 07/11/18 20:00 101.5 95 19 108/85 (93) 98 101.5 07/11/18 19:45 98 T-piece 6.0 28 07/11/18 19:45 T-piece 6.0 28 07/11/18 17:06 104 126/88 07/11/18 17:05 T-piece 6.0 28 07/11/18 17:05 93 T-piece 6.0 28 07/11/18 16:00 99.0 92 20 116/80 (92) 96 99.0 07/11/18 16:00 93 07/11/18 12:00 98.8 99 18 116/78 (91) 100 98.8 07/11/18 12:00 71 Intake and Output 07/11/18 07/12/18 19:00 07:00 Intake Total 55 ml 910.0 ml Output Total 600 ml 401 ml Balance -545 ml 509.0 ml Free Water 140 ml IV Total 110.0 ml Tube Feeding 55 ml 660 ml Output Urine Total 600 ml 400 ml Stool Total 1 ml Laboratory Tests 07/11/18 13:10: Urine Color Pale yellow, Urine Appearance Clear, Urine pH 8, Urine Specific [place] 1.015, Urine Protein Negative, Urine Glucose (UA) Negative, Urine Ketones Negative, Urine Blood 1+H, Urine Nitrite Negative, Urine Bilirubin Negative, Urine Urobilinogen Normal, Urine Leukocyte Esterase 2+H, Urine RBC 2- 4H, Urine WBC 5-10H, Urine Squamous Epithelial Cells Occasional, Urine Amorphous Sediment FewH, Urine Bacteria Occasional, Urine Osmolality 556H, Urine Random Sodium 93 07/12/18 06:45: White Blood Count 14.0H, Red Blood Count 3.87L, Hemoglobin 10.6L, Hematocrit 31.9L, Mean Corpuscular Volume 83, Mean Corpuscular Hemoglobin 27.4, Mean Corpuscular Hemoglobin Concent 33.2, Red Cell Distribution Width 13.2, Platelet Count 293, Mean Platelet Volume 9.5, Neutrophils (%) (Auto) 78.0H, Lymphocytes ( %) (Auto) 14.1L, Monocytes (%) (Auto) 5.7, Eosinophils (%) (Auto) 1.7, Basophils (%) (Auto) 0.4, Sodium Level 138, Potassium Level 3.9, Chloride Level 103, Carbon Dioxide Level 27, Anion Gap 8, Blood Urea Nitrogen 17, Creatinine 0.9, Estimat Glomerular Filtration Rate > 60, Glucose Level 129H, Calcium Level 9.2 Height (Feet): 5 Height (Inches): 8.00 Weight (Pounds): 140 General Appearance: lethargic EENT: normal ENT inspection Neck: normal alignment Cardiovascular: normal peripheral pulses, normal rate, regular rhythm Respiratory/Chest: chest wall non-tender, lungs clear, normal breath sounds Abdomen: normal bowel sounds, non tender, soft Extremities: normal inspection Edema: no edema noted Arm (L), no edema noted Arm (R), no edema noted Leg (L), no edema noted Leg (R), no edema noted Pedal (L), no edema noted Pedal (R), no edema noted Generalized Neurologic: motor weakness Skin: normal pigmentation, warm/dry Frandy Eagle DO Jul 12, 2018 11:44
--- NOTE | 2018-07-12 11:53 | Pulmonology Progress Note ---
Assessment/Plan Problems: (1) Sepsis (2) HCAP (healthcare-associated pneumonia) (3) Severe protein-calorie malnutrition (4) Feeding by G-tube (5) Vegetative state (6) Organic brain syndrome Assessment/Plan improving continue abx check cultures tolerating feeding aspiration precaution dvt prophylaxis Subjective ROS Limited/Unobtainable: No Constitutional: Reports: no symptoms HEENT: Repors: no symptoms Respiratory: Reports: no symptoms Allergies: Coded Allergies: No Known Allergies (Unverified , 12/13/12) Objective Last 24 Hour Vital Signs Date Time Temp Pulse Resp B/P (MAP) Pulse Ox O2 Delivery O2 Flow Rate FiO2 07/12/18 09:17 91 141/96 07/12/18 09:17 91 141/96 07/12/18 09:00 T-piece 07/12/18 08:00 98.9 91 18 141/96 (111) 99 98.9 07/12/18 07:47 T-piece 6.0 28 07/12/18 07:46 96 T-piece 6.0 28 07/12/18 04:00 98.9 101 18 123/86 (98) 98 98.9 07/12/18 04:00 103 07/12/18 01:08 T-piece 6.0 28 07/12/18 01:08 97 T-piece 6.0 28 07/12/18 00:00 99.0 86 19 118/83 (95) 98 99.0 07/12/18 00:00 88 07/11/18 21:00 T-piece 07/11/18 20:30 99.8 99.8 07/11/18 20:00 92 07/11/18 20:00 101.5 95 19 108/85 (93) 98 101.5 07/11/18 19:45 98 T-piece 6.0 28 07/11/18 19:45 T-piece 6.0 28 07/11/18 17:06 104 126/88 07/11/18 17:05 T-piece 6.0 28 07/11/18 17:05 93 T-piece 6.0 28 07/11/18 16:00 99.0 92 20 116/80 (92) 96 99.0 07/11/18 16:00 93 07/11/18 12:00 98.8 99 18 116/78 (91) 100 98.8 10/7/18 12:00 71 Intake and Output 07/11/18 07/12/18 19:00 07:00 Intake Total 55 ml 910.0 ml Output Total 600 ml 401 ml Balance -545 ml 509.0 ml Free Water 140 ml IV Total 110.0 ml Tube Feeding 55 ml 660 ml Output Urine Total 600 ml 400 ml Stool Total 1 ml General Appearance: cachetic HEENT: normocephalic, atraumatic Respiratory/Chest: chest wall non-tender, lungs clear Cardiovascular: normal peripheral pulses, normal rate Abdomen: normal bowel sounds, soft, non tender Genitourinary: normal external genitalia Skin: no rash Lymphatic: no neck adenopathy Microbiology Date/Time Source Procedure Growth Status 07/09/18 21:00 Sputum Gram Stain - Final Resulted 07/09/18 21:00 Sputum Culture - Preliminary Klebsiella Pneumoniae Gram Negative Bacillus 2 Usual Respiratory Shantelle Resulted 07/09/18 17:30 Urine,Clean Catch Urine Culture - Preliminary Gram Negative Bacillus 1 Resulted 07/09/18 13:39 Rectum - Final NO CARBAPENEM-RESISTANT ENTEROBACTERI... Complete Laboratory Tests 07/11/18 13:10: Urine Color Pale yellow, Urine Appearance Clear, Urine pH 8, Urine Specific [place] 1.015, Urine Protein Negative, Urine Glucose (UA) Negative, Urine Ketones Negative, Urine Blood 1+H, Urine Nitrite Negative, Urine Bilirubin Negative, Urine Urobilinogen Normal, Urine Leukocyte Esterase 2+H, Urine RBC 2- 4H, Urine WBC 5-10H, Urine Squamous Epithelial Cells Occasional, Urine Amorphous Sediment FewH, Urine Bacteria Occasional, Urine Osmolality 556H, Urine Random Sodium 93 07/12/18 06:45: White Blood Count 14.0H, Red Blood Count 3.87L, Hemoglobin 10.6L, Hematocrit 31.9L, Mean Corpuscular Volume 83, Mean Corpuscular Hemoglobin 27.4, Mean Corpuscular Hemoglobin Concent 33.2, Red Cell Distribution Width 13.2, Platelet Count 293, Mean Platelet Volume 9.5, Neutrophils (%) (Auto) 78.0H, Lymphocytes ( %) (Auto) 14.1L, Monocytes (%) (Auto) 5.7, Eosinophils (%) (Auto) 1.7, Basophils (%) (Auto) 0.4, Sodium Level 138, Potassium Level 3.9, Chloride Level 103, Carbon Dioxide Level 27, Anion Gap 8, Blood Urea Nitrogen 17, Creatinine 0.9, Estimat Glomerular Filtration Rate > 60, Glucose Level 129H, Calcium Level 9.2 Current Medications Medications (Trade) Dose Ordered Sig/Mariel Route PRN Reason Start Time Stop Time Status Last Admin Dose Admin Acetaminophen (Tylenol) 650 mg Q4H PRN ORAL FEVER 07/09/18 11:45 08/08/18 11:44 Albuterol/ Ipratropium (Albuterol/ Ipratropium) 3 ml Q4H PRN HHN Shortness of Breath 07/09/18 11:45 07/14/18 11:44 Amlodipine Besylate (Norvasc) 10 mg DAILY GT 07/10/18 09:00 08/09/18 08:59 07/12/18 09:17 Carvedilol (Coreg) 25 mg TWICE A DAY GT 07/09/18 18:00 08/08/18 17:59 07/12/18 09:17 Clonidine HCl (Catapres Tab) 0.1 mg Q8H PRN GT For High Blood Pressure 07/09/18 11:45 08/08/18 11:44 Dextrose (Dextrose 50%) 25 ml Q30M PRN IV Hypoglycemia 07/09/18 11:45 08/08/18 11:41 Dextrose (Dextrose 50%) 50 ml Q30M PRN IV hypoglycemia 07/09/18 11:45 08/08/18 11:44 Heparin Sodium (Porcine) (Heparin 5000 units/ml) 5,000 units EVERY 12 HOURS SUBQ 07/09/18 21:00 08/08/18 20:59 07/12/18 09:19 Levetiracetam (Keppra) 1,500 mg Q12HR GT 07/10/18 21:00 08/08/18 13:00 07/12/18 09:17 Lorazepam (Ativan 2mg/ml 1ml) 2 mg Q2H PRN IV For Anxiety 07/09/18 11:45 07/16/18 11:44 Morphine Sulfate (Morphine Sulfate) 4 mg Q4H PRN IVP Severe Pain (Pain Scale 7-10) 07/09/18 11:45 07/16/18 11:44 Non-Formulary Medication (Non-Formulary Med) 1 ea DAILY TOPIC 07/10/18 13:00 08/09/18 12:59 Ondansetron HCl (Zofran) 4 mg Q6H PRN IVP Nausea & Vomiting 07/09/18 11:45 08/08/18 11:44 Pantoprazole (Protonix) 40 mg DAILY IV 07/10/18 09:00 08/09/18 08:59 07/12/18 09:17 Piperacillin Sod/ Tazobactam Sod 3.375 gm/Dextrose 110 ml @ 27.5 mls/hr Q8H IVPB 07/12/18 08:00 07/19/18 00:00 07/12/18 10:17 Polyethylene Glycol (Miralax) 17 gm DAILYPRN PRN ORAL Constipation 07/09/18 11:45 08/08/18 11:44 Stormy Gotti MD Jul 12, 2018 11:53
[2018-07-12 12:00] VITALS: BP 131/90
--- NOTE | 2018-07-12 12:08 | Infectious Diseases Prog Note ---
Assessment/Plan Assessment/Plan ASSESSMENT: The patient is a 58-year-old male with: Fever Leukocytosis, recurrent Probable sepsis. Probable pneumonia Scx: MDR K.pna (R carbapenem, I aminoglycosides), GNR #2 07/10 CXR: Asymmetric increased density in the inferior left lung region, likely at least partially secondary to patient rotation and chest wall soft tissues, though atelectasis, asymmetric edema, or early pneumonia are not excluded. Stage IV sacral decubitus, grossly not infected. Ro Probable urinary tract infection. History of chronic [place] catheter -u/a wbc 5-10, nit neg, bambi +2; ucx GNR Cardiomyopathy. Liver cirrhosis. Diabetes. Hypertension. Status post trach. History of gastroesophageal reflux disease. History of encephalopathy. Status post PEG placement. PLAN: - Switch IV Zosyn #2 to empiric Tigecycline for MDR K,pna and add INH colistin -set up sensi for Tigeclcyne, colistin, minocycline, polimixyn B, aztreonam -07/11 SP Rocephin d# 2 , Vanco d# 2 - Monitor CBC. - Monitor BMP. - Monitor cultures (blood, urine, and sputum). - Monitor chest x-ray; CXR am Subjective Allergies: Coded Allergies: No Known Allergies (Unverified , 12/13/12) Subjective Tm 101.5 leukocytosis recurrent Objective Vital Signs Last 24 Hour Vital Signs Date Time Temp Pulse Resp B/P (MAP) Pulse Ox O2 Delivery O2 Flow Rate FiO2 07/12/18 09:17 91 141/96 07/12/18 09:17 91 141/96 07/12/18 09:00 T-piece 07/12/18 08:00 98.9 91 18 141/96 (111) 99 98.9 07/12/18 07:47 T-piece 6.0 28 07/12/18 07:46 96 T-piece 6.0 28 07/12/18 04:00 98.9 101 18 123/86 (98) 98 98.9 07/12/18 04:00 103 07/12/18 01:08 T-piece 6.0 28 07/12/18 01:08 97 T-piece 6.0 28 07/12/18 00:00 99.0 86 19 118/83 (95) 98 99.0 10/8/18 00:00 88 07/11/18 21:00 T-piece 07/11/18 20:30 99.8 99.8 07/11/18 20:00 92 07/11/18 20:00 101.5 95 19 108/85 (93) 98 101.5 07/11/18 19:45 98 T-piece 6.0 28 07/11/18 19:45 T-piece 6.0 28 07/11/18 17:06 104 126/88 07/11/18 17:05 T-piece 6.0 28 07/11/18 17:05 93 T-piece 6.0 28 07/11/18 16:00 99.0 92 20 116/80 (92) 96 99.0 07/11/18 16:00 93 07/11/18 12:00 98.8 99 18 116/78 (91) 100 98.8 07/11/18 12:00 71 Height (Feet): 5 Height (Inches): 8.00 Weight (Pounds): 140 Objective General Appearance: cachetic HEENT: normocephalic, atraumatic Respiratory/Chest: chest wall non-tender, lungs clear Cardiovascular: normal peripheral pulses, normal rate Abdomen: normal bowel sounds, soft, non tender Genitourinary: normal external genitalia Skin: no rash Lymphatic: no neck adenopathy Microbiology Date/Time Source Procedure Growth Status 07/09/18 21:00 Sputum Gram Stain - Final Resulted 07/09/18 21:00 Sputum Culture - Preliminary Klebsiella Pneumoniae Gram Negative Bacillus 2 Usual Respiratory Shantelle Resulted 07/09/18 17:30 Urine,Clean Catch Urine Culture - Preliminary Gram Negative Bacillus 1 Resulted 07/09/18 13:39 Rectum - Final NO CARBAPENEM-RESISTANT ENTEROBACTERI... Complete Laboratory Tests Test 07/11/18 13:10 07/12/18 06:45 Urine Color Pale yellow Urine Appearance Clear Urine pH 8 (4.5-8.0) Urine Specific [place] 1.015 (1.005-1.035) Urine Protein Negative (NEGATIVE) Urine Glucose (UA) Negative (NEGATIVE) Urine Ketones Negative (NEGATIVE) Urine Blood 1+ (NEGATIVE) H Urine Nitrite Negative (NEGATIVE) Urine Bilirubin Negative (NEGATIVE) Urine Urobilinogen Normal MG/DL (0.0-1.0) Urine Leukocyte Esterase 2+ (NEGATIVE) H Urine RBC 2-4 /HPF (0 - 0) H Urine WBC 5-10 /HPF (0 - 0) H Urine Squamous Epithelial Cells Occasional /LPF Urine Amorphous Sediment Few /LPF (NONE) H Urine Bacteria Occasional /HPF (NONE) Urine Osmolality 556 mOsm/kg (429-449) H Urine Random Sodium 93 mmol/L (20-110) White Blood Count 14.0 K/UL (4.8-10.8) H Red Blood Count 3.87 M/UL (4.70-6.10) L Hemoglobin 10.6 G/DL (14.2-18.0) L Hematocrit 31.9 % (42.0-52.0) L Mean Corpuscular Volume 83 FL (80-99) Mean Corpuscular Hemoglobin 27.4 PG (27.0-31.0) Mean Corpuscular Hemoglobin Concent 33.2 G/DL (32.0-36.0) Red Cell Distribution Width 13.2 % (11.6-14.8) Platelet Count 293 K/UL (150-450) Mean Platelet Volume 9.5 FL (6.5-10.1) Neutrophils (%) (Auto) 78.0 % (45.0-75.0) H Lymphocytes (%) (Auto) 14.1 % (20.0-45.0) L Monocytes (%) (Auto) 5.7 % (1.0-10.0) Eosinophils (%) (Auto) 1.7 % (0.0-3.0) Basophils (%) (Auto) 0.4 % (0.0-2.0) Sodium Level 138 MMOL/L (136-145) Potassium Level 3.9 MMOL/L (3.5-5.1) Chloride Level 103 MMOL/L (98-107) Carbon Dioxide Level 27 MMOL/L (21-32) Anion Gap 8 mmol/L (5-15) Blood Urea Nitrogen 17 mg/dL (7-18) Creatinine 0.9 MG/DL (0.55-1.30) Estimat Glomerular Filtration Rate > 60 mL/min (>60) Glucose Level 129 MG/DL (74-106) H Calcium Level 9.2 MG/DL (8.5-10.1) Current Medications Medications (Trade) Dose Ordered Sig/Mariel Route PRN Reason Start Time Stop Time Status Last Admin Dose Admin Acetaminophen (Tylenol) 650 mg Q4H PRN ORAL FEVER 07/09/18 11:45 08/08/18 11:44 Albuterol/ Ipratropium (Albuterol/ Ipratropium) 3 ml Q4H PRN HHN Shortness of Breath 07/09/18 11:45 07/14/18 11:44 Amlodipine Besylate (Norvasc) 10 mg DAILY GT 07/10/18 09:00 08/09/18 08:59 07/12/18 09:17 Carvedilol (Coreg) 25 mg TWICE A DAY GT 07/09/18 18:00 08/08/18 17:59 07/12/18 09:17 Clonidine HCl (Catapres Tab) 0.1 mg Q8H PRN GT For High Blood Pressure 07/09/18 11:45 08/08/18 11:44 Dextrose (Dextrose 50%) 25 ml Q30M PRN IV Hypoglycemia 07/09/18 11:45 08/08/18 11:41 Dextrose (Dextrose 50%) 50 ml Q30M PRN IV hypoglycemia 07/09/18 11:45 08/08/18 11:44 Heparin Sodium (Porcine) (Heparin 5000 units/ml) 5,000 units EVERY 12 HOURS SUBQ 07/09/18 21:00 08/08/18 20:59 07/12/18 09:19 Levetiracetam (Keppra) 1,500 mg Q12HR GT 07/10/18 21:00 08/08/18 13:00 07/12/18 09:17 Lorazepam (Ativan 2mg/ml 1ml) 2 mg Q2H PRN IV For Anxiety 07/09/18 11:45 07/16/18 11:44 Morphine Sulfate (Morphine Sulfate) 4 mg Q4H PRN IVP Severe Pain (Pain Scale 7-10) 07/09/18 11:45 07/16/18 11:44 Non-Formulary Medication (Non-Formulary Med) 1 ea DAILY TOPIC 07/10/18 13:00 08/09/18 12:59 Ondansetron HCl (Zofran) 4 mg Q6H PRN IVP Nausea & Vomiting 07/09/18 11:45 08/08/18 11:44 Pantoprazole (Protonix) 40 mg DAILY IV 07/10/18 09:00 08/09/18 08:59 07/12/18 09:17 Piperacillin Sod/ Tazobactam Sod 3.375 gm/Dextrose 110 ml @ 27.5 mls/hr Q8H IVPB 07/12/18 08:00 07/19/18 00:00 07/12/18 10:17 Polyethylene Glycol (Miralax) 17 gm DAILYPRN PRN ORAL Constipation 07/09/18 11:45 08/08/18 11:44 Rozina Burr M.D. Jul 12, 2018 12:08
--- NOTE | 2018-07-12 13:37 | Nephrology Progress Note ---
Assessment/Plan Problem List: (1) Chronic respiratory failure (2) Organic brain syndrome (3) HCAP (healthcare-associated pneumonia) (4) Anemia (5) Hyponatremia Assessment Pneumonia Low Na ? depletional Anemia Trach to O2 no UA Sz disorders Plan Mag IV Anemia perez Low Na perez per orders Subjective ROS Limited/Unobtainable: No Constitutional: Reports: malaise, weakness Objective Objective Last 24 Hour Vital Signs Date Time Temp Pulse Resp B/P (MAP) Pulse Ox O2 Delivery O2 Flow Rate FiO2 07/12/18 12:00 98.1 88 18 131/90 (104) 99 98.1 07/12/18 09:17 91 141/96 07/12/18 09:17 91 141/96 07/12/18 09:00 T-piece 07/12/18 08:00 98.9 91 18 141/96 (111) 99 98.9 07/12/18 07:47 T-piece 6.0 28 07/12/18 07:46 96 T-piece 6.0 28 07/12/18 04:00 98.9 101 18 123/86 (98) 98 98.9 07/12/18 04:00 103 07/12/18 01:08 T-piece 6.0 28 07/12/18 01:08 97 T-piece 6.0 28 07/12/18 00:00 99.0 86 19 118/83 (95) 98 99.0 07/12/18 00:00 88 07/11/18 21:00 T-piece 07/11/18 20:30 99.8 99.8 07/11/18 20:00 92 07/11/18 20:00 101.5 95 19 108/85 (93) 98 101.5 07/11/18 19:45 98 T-piece 6.0 28 07/11/18 19:45 T-piece 6.0 28 07/11/18 17:06 104 126/88 07/11/18 17:05 T-piece 6.0 28 07/11/18 17:05 93 T-piece 6.0 28 07/11/18 16:00 99.0 92 20 116/80 (92) 96 99.0 07/11/18 16:00 93 Intake and Output 07/11/18 07/12/18 19:00 07:00 Intake Total 55 ml 910.0 ml Output Total 600 ml 401 ml Balance -545 ml 509.0 ml Free Water 140 ml IV Total 110.0 ml Tube Feeding 55 ml 660 ml Output Urine Total 600 ml 400 ml Stool Total 1 ml Laboratory Tests 07/12/18 06:45: White Blood Count 14.0H, Red Blood Count 3.87L, Hemoglobin 10.6L, Hematocrit 31.9L, Mean Corpuscular Volume 83, Mean Corpuscular Hemoglobin 27.4, Mean Corpuscular Hemoglobin Concent 33.2, Red Cell Distribution Width 13.2, Platelet Count 293, Mean Platelet Volume 9.5, Neutrophils (%) (Auto) 78.0H, Lymphocytes ( %) (Auto) 14.1L, Monocytes (%) (Auto) 5.7, Eosinophils (%) (Auto) 1.7, Basophils (%) (Auto) 0.4, Sodium Level 138, Potassium Level 3.9, Chloride Level 103, Carbon Dioxide Level 27, Anion Gap 8, Blood Urea Nitrogen 17, Creatinine 0.9, Estimat Glomerular Filtration Rate > 60, Glucose Level 129H, Calcium Level 9.2 Height (Feet): 5 Height (Inches): 8.00 Weight (Pounds): 140 General Appearance: no apparent distress, lethargic Cardiovascular: tachycardia Respiratory/Chest: decreased breath sounds Abdomen: distended Ian Lisa MD Jul 12, 2018 13:37
[2018-07-12] MEDS ORDERED: Tigecycline 100 MG in D5W 110 ML IVPB ONE (14:00)
[2018-07-12] MEDS: Colistin for inhalation INH SCH (14:01)
--- NOTE | 2018-07-12 14:04 | Diagnostic Imaging Report ---
Indication: Dyspnea Comparison: 07/10/2018 A single view chest radiograph was obtained. Findings: No definite infiltrate or pulmonary vascular congestion identified. Tracheostomy noted. The heart is within normal limits. The aorta is mildly enlarged consistent with atherosclerotic vascular disease. The bones are osteopenic. Impression: No acute disease
--- NOTE | 2018-07-12 14:49 | Cardiology Report ---
APPROVED REPORT EKG Measurement Heart [id number] Normal sinus rhythm Normal ECG
[2018-07-12 16:00] VITALS: BP 117/78
[2018-07-12 20:00] VITALS: BP 126/80
[2018-07-13] VITALS: BP 131/77
[2018-07-13] MEDS: Tigecycline 50 MG in D5W 110 ML IVPB SCH ×3 (01:14→21:53)
[2018-07-13] MEDS: Colistin for inhalation INH SCH ×3 (01:28→22:09)
[2018-07-13 04:00] VITALS: BP 102/66
[2018-07-13 06:06] LABS: BASOPHILS % (AUTO) 0.6 % (0.0-2.0); EOSINOPHILS % (AUTO) 2.6 % (0.0-3.0); HEMATOCRIT 33.5 % (42.0-52.0); HEMOGLOBIN 11.1 G/DL (14.2-18.0); LYMPHOCYTES % (AUTO) 20.8 % (20.0-45.0); MEAN CORPUSCULAR VOLUME 83 FL (80-99); MONOCYTES % (AUTO) 7.5 % (1.0-10.0); NEUTROPHILS % (AUTO) 68.5 % (45.0-75.0); PLATELET COUNT 279 K/UL (150-450); RED BLOOD COUNT 4.03 M/UL (4.70-6.10); RED CELL DISTRIBUTION WIDTH 13.2 % (11.6-14.8); WHITE BLOOD COUNT 13.5 K/UL (4.8-10.8)
[2018-07-13 06:43] LABS: ALANINE AMINOTRANSFERASE 19 U/L (12-78); ALBUMIN 2.6 G/DL (3.4-5.0); ALBUMIN/GLOBULIN RATIO 0.4 (1.0-2.7); ALKALINE PHOSPHATASE 118 U/L (46-116); ANION GAP 7 mmol/L (5-15); ASPARTATE AMINO TRANSFERASE 14 U/L (15-37); BILIRUBIN,TOTAL 0.1 MG/DL (0.2-1.0); BLOOD UREA NITROGEN 22 mg/dL (7-18); CALCIUM 9.3 MG/DL (8.5-10.1); CARBON DIOXIDE 29 MMOL/L (21-32); CHLORIDE 103 MMOL/L (98-107); CREATININE 0.9 MG/DL (0.55-1.30); GAMMA GLUTAMYL TRANSPEPTIDASE 66 U/L (5-85); PHOSPHORUS 3.4 MG/DL (2.5-4.9); POTASSIUM 4.2 MMOL/L (3.5-5.1); SODIUM 138 MMOL/L (136-145)
[2018-07-13 08:00] VITALS: BP 116/77
[2018-07-13] MEDS: Pantoprazole Inj IV SCH (09:38)
[2018-07-13] MEDS: levETIRAcetam 500mg/5ml Liquid GT SCH ×2 (09:38→21:52)
[2018-07-13] MEDS: Carvedilol 25mg Tab GT SCH ×2 (09:38→17:25)
[2018-07-13] MEDS: [UNRECOGNIZED DRUG - OTHER] TOPIC SCH (09:39)
[2018-07-13] MEDS: Heparin 5000 units/ml inj SUBQ SCH ×2 (09:51→21:55)
--- NOTE | 2018-07-13 11:01 | Pulmonology Progress Note ---
Assessment/Plan Problems: (1) Sepsis (2) HCAP (healthcare-associated pneumonia) (3) Severe protein-calorie malnutrition (4) Feeding by G-tube (5) Vegetative state (6) Organic brain syndrome Assessment/Plan improving continue abx check cultures, sputum culture reviewed wound care for deep stage 4 decubiti tolerating feeding aspiration precaution dvt prophylaxis Subjective ROS Limited/Unobtainable: No Constitutional: Reports: no symptoms HEENT: Repors: no symptoms Respiratory: Reports: no symptoms Allergies: Coded Allergies: No Known Allergies (Unverified , 12/13/12) Objective Last 24 Hour Vital Signs Date Time Temp Pulse Resp B/P (MAP) Pulse Ox O2 Delivery O2 Flow Rate FiO2 07/13/18 09:47 89 22 98 Trach Collar 6.0 28 07/13/18 09:38 85 116/77 07/13/18 09:38 85 116/77 07/13/18 09:32 28 07/13/18 09:32 86 22 97 Trach Collar 6.0 28 07/13/18 08:00 99.6 85 20 116/77 (90) 97 99.6 07/13/18 07:18 98 T-piece 6.0 28 07/13/18 07:18 T-piece 6.0 28 07/13/18 04:00 98.3 69 19 102/66 (78) 97 98.3 07/13/18 04:00 71 07/13/18 01:49 79 20 Trach Collar 6.0 28 07/13/18 01:46 78 20 98 Trach Collar 6.0 28 07/13/18 01:45 28 07/13/18 01:30 75 20 98 Trach Collar 6.0 28 07/13/18 01:28 98 T-piece 6.0 28 07/13/18 01:28 T-piece 6.0 28 07/13/18 00:00 98.7 72 18 131/77 (95) 98 98.7 07/13/18 00:00 84 07/12/18 21:00 T-piece 07/12/18 20:00 82 07/12/18 20:00 99.0 78 18 126/80 (95) 99 99.0 07/12/18 19:57 96 T-piece 6.0 28 07/12/18 19:57 T-piece 6.0 28 07/12/18 17:29 85 117/82 07/12/18 16:00 92 07/12/18 16:00 98.6 85 18 117/78 (91) 98 98.6 07/12/18 14:02 T-piece 6.0 28 07/12/18 14:01 98 T-piece 6.0 28 07/12/18 12:00 98.1 88 18 131/90 (104) 99 98.1 07/12/18 12:00 87 Intake and Output 07/12/18 07/13/18 19:00 07:00 Output Total 350 ml 700 ml Balance -350 ml -700 ml Output Urine Total 350 ml 700 ml # Voids 1 # Bowel Movements 1 General Appearance: WD/WN, no acute distress HEENT: normocephalic Respiratory/Chest: chest wall non-tender, lungs clear Cardiovascular: normal peripheral pulses, normal rate Abdomen: normal bowel sounds, soft, non tender Genitourinary: normal external genitalia Extremities: no clubbing Skin: no rash Neurologic/Psychiatric: open winder II-XII grossly normal Lymphatic: no neck adenopathy Laboratory Tests 07/13/18 05:30: White Blood Count 13.5H, Red Blood Count 4.03L, Hemoglobin 11.1L, Hematocrit 33.5L, Mean Corpuscular Volume 83, Mean Corpuscular Hemoglobin 27.5, Mean Corpuscular Hemoglobin Concent 33.1, Red Cell Distribution Width 13.2, Platelet Count 279, Mean Platelet Volume 9.3, Neutrophils (%) (Auto) 68.5, Lymphocytes (% ) (Auto) 20.8, Monocytes (%) (Auto) 7.5, Eosinophils (%) (Auto) 2.6, Basophils ( %) (Auto) 0.6, Sodium Level 138, Potassium Level 4.2, Chloride Level 103, Carbon Dioxide Level 29, Anion Gap 7, Blood Urea Nitrogen 22H, Creatinine 0.9, Estimat Glomerular Filtration Rate > 60, Glucose Level 100, Calcium Level 9.3, Phosphorus Level 3.4, Magnesium Level 1.7L, Total Bilirubin 0.1L, Gamma Glutamyl Transpeptidase 66, Aspartate Amino Transf (AST/SGOT) 14L, Alanine Aminotransferase (ALT/SGPT) 19, Alkaline Phosphatase 118H, C-Reactive Protein, Quantitative 2.9H, Pro-B-Type Natriuretic Peptide 60, Total Protein 8.8H, Albumin 2.6L, Globulin 6.2, Albumin/Globulin Ratio 0.4L Current Medications Medications (Trade) Dose Ordered Sig/Mariel Route PRN Reason Start Time Stop Time Status Last Admin Dose Admin Acetaminophen (Tylenol) 650 mg Q4H PRN ORAL FEVER 07/09/18 11:45 08/08/18 11:44 Albuterol/ Ipratropium (Albuterol/ Ipratropium) 3 ml Q4H PRN HHN Shortness of Breath 07/09/18 11:45 07/14/18 11:44 Amlodipine Besylate (Norvasc) 10 mg DAILY GT 07/10/18 09:00 08/09/18 08:59 07/13/18 09:38 Carvedilol (Coreg) 25 mg TWICE A DAY GT 07/09/18 18:00 08/08/18 17:59 07/13/18 09:38 Clonidine HCl (Catapres Tab) 0.1 mg Q8H PRN GT For High Blood Pressure 07/09/18 11:45 08/08/18 11:44 Colistimethate Sodium (Colistin *inhalation use only*) 150 mg Q12HR@10,22 INH 07/12/18 13:00 07/19/18 12:59 07/13/18 09:46 Dextrose (Dextrose 50%) 25 ml Q30M PRN IV Hypoglycemia 07/09/18 11:45 08/08/18 11:41 Dextrose (Dextrose 50%) 50 ml Q30M PRN IV hypoglycemia 07/09/18 11:45 08/08/18 11:44 Heparin Sodium (Porcine) (Heparin 5000 units/ml) 5,000 units EVERY 12 HOURS SUBQ 07/09/18 21:00 08/08/18 20:59 07/13/18 09:51 Levetiracetam (Keppra) 1,500 mg Q12HR GT 07/10/18 21:00 08/08/18 13:00 07/13/18 09:38 Lorazepam (Ativan 2mg/ml 1ml) 2 mg Q2H PRN IV For Anxiety 07/09/18 11:45 07/16/18 11:44 Magnesium Sulfate 100 ml @ 100 mls/hr Q1H IVPB 07/13/18 10:30 07/13/18 13:29 Morphine Sulfate (Morphine Sulfate) 4 mg Q4H PRN IVP Severe Pain (Pain Scale 7-10) 07/09/18 11:45 07/16/18 11:44 Non-Formulary Medication (Non-Formulary Med) 1 ea DAILY TOPIC 07/10/18 13:00 08/09/18 12:59 07/13/18 09:39 Ondansetron HCl (Zofran) 4 mg Q6H PRN IVP Nausea & Vomiting 07/09/18 11:45 08/08/18 11:44 Pantoprazole (Protonix) 40 mg DAILY IV 07/10/18 09:00 08/09/18 08:59 07/13/18 09:38 Polyethylene Glycol (Miralax) 17 gm DAILYPRN PRN ORAL Constipation 07/09/18 11:45 08/08/18 11:44 Tigecycline 50 mg/ Dextrose 110 ml @ 220 mls/hr EVERY 12 HOURS IVPB 07/12/18 23:00 07/19/18 22:59 07/13/18 09:39 Stormy Gotti MD Jul 13, 2018 11:01
--- NOTE | 2018-07-13 11:50 | Infectious Diseases Prog Note ---
Assessment/Plan Assessment/Plan ASSESSMENT: The patient is a 58-year-old male with: Fever , improving Leukocytosis, recurrent- improving Probable sepsis. Probable pneumonia vs tracheitis- Scx: MDR K.pna (R carbapenem, I aminoglycosides; S TIgecycline, Minocycoine, Polimxin B, colistin), Serratia marcenses (S Tigecycline, genta, bactrim, Amikacin; R Ancef, Cipro/levo) 07/13 CXR: No acute disease 07/10 CXR: Asymmetric increased density in the inferior left lung region, likely at least partially secondary to patient rotation and chest wall soft tissues, though atelectasis, asymmetric edema, or early pneumonia are not excluded. Stage IV sacral decubitus, grossly not infected. Probable urinary tract infection. History of chronic [place] catheter -u/a wbc 5-10, nit neg, bambi +2; ucx P. mirabilis (S Cefepime, ceftriaxone; R Tigecycline, amikacin, cipro/levo, genta, zosyn) Cardiomyopathy. Liver cirrhosis. Diabetes. Hypertension. Status post trach. History of gastroesophageal reflux disease. History of encephalopathy. Status post PEG placement. PLAN: - Continue empiric Tigecycline #2/-10 and INH colistin #2/ for for MDR K,pna and Serratia PNA -if WBC increased/not improved, ongoing fevers, will add Ceftriaxone to cover proteus in urine -07/12 SP Zosyn #2 -07/11 SP Rocephin d# 2 , Vanco d# 2 - Monitor CBC. - Monitor BMP. - Monitor cultures (blood). - Monitor chest x-ray Discussed with RN and micro lab Subjective Allergies: Coded Allergies: No Known Allergies (Unverified , 12/13/12) Subjective afebrile >36hrs wbc slightly improved bcx NTD on 6L trach collar Objective Vital Signs Last 24 Hour Vital Signs Date Time Temp Pulse Resp B/P (MAP) Pulse Ox O2 Delivery O2 Flow Rate FiO2 07/13/18 09:47 89 22 98 Trach Collar 6.0 28 07/13/18 09:38 85 116/77 07/13/18 09:38 85 116/77 07/13/18 09:32 28 07/13/18 09:32 86 22 97 Trach Collar 6.0 28 07/13/18 08:00 99.6 85 20 116/77 (90) 97 99.6 07/13/18 07:18 98 T-piece 6.0 28 07/13/18 07:18 T-piece 6.0 28 07/13/18 04:00 98.3 69 19 102/66 (78) 97 98.3 07/13/18 04:00 71 07/13/18 01:49 79 20 Trach Collar 6.0 28 07/13/18 01:46 78 20 98 Trach Collar 6.0 28 07/13/18 01:45 28 07/13/18 01:30 75 20 98 Trach Collar 6.0 28 07/13/18 01:28 98 T-piece 6.0 28 07/13/18 01:28 T-piece 6.0 28 07/13/18 00:00 98.7 72 18 131/77 (95) 98 98.7 07/13/18 00:00 84 07/12/18 21:00 T-piece 07/12/18 20:00 82 07/12/18 20:00 99.0 78 18 126/80 (95) 99 99.0 07/12/18 19:57 96 T-piece 6.0 28 07/12/18 19:57 T-piece 6.0 28 07/12/18 17:29 85 117/82 07/12/18 16:00 92 07/12/18 16:00 98.6 85 18 117/78 (91) 98 98.6 07/12/18 14:02 T-piece 6.0 28 07/12/18 14:01 98 T-piece 6.0 28 07/12/18 12:00 98.1 88 18 131/90 (104) 99 98.1 07/12/18 12:00 87 Height (Feet): 5 Height (Inches): 8.00 Weight (Pounds): 140 Objective General Appearance: cachetic HEENT: normocephalic, atraumatic Respiratory/Chest: chest wall non-tender, lungs clear Cardiovascular: normal peripheral pulses, normal rate Abdomen: normal bowel sounds, soft, non tender Genitourinary: normal external genitalia Skin: no rash Lymphatic: no neck adenopathy Laboratory Tests Test 07/13/18 05:30 White Blood Count 13.5 K/UL (4.8-10.8) H Red Blood Count 4.03 M/UL (4.70-6.10) L Hemoglobin 11.1 G/DL (14.2-18.0) L Hematocrit 33.5 % (42.0-52.0) L Mean Corpuscular Volume 83 FL (80-99) Mean Corpuscular Hemoglobin 27.5 PG (27.0-31.0) Mean Corpuscular Hemoglobin Concent 33.1 G/DL (32.0-36.0) Red Cell Distribution Width 13.2 % (11.6-14.8) Platelet Count 279 K/UL (150-450) Mean Platelet Volume 9.3 FL (6.5-10.1) Neutrophils (%) (Auto) 68.5 % (45.0-75.0) Lymphocytes (%) (Auto) 20.8 % (20.0-45.0) Monocytes (%) (Auto) 7.5 % (1.0-10.0) Eosinophils (%) (Auto) 2.6 % (0.0-3.0) Basophils (%) (Auto) 0.6 % (0.0-2.0) Sodium Level 138 MMOL/L (136-145) Potassium Level 4.2 MMOL/L (3.5-5.1) Chloride Level 103 MMOL/L (98-107) Carbon Dioxide Level 29 MMOL/L (21-32) Anion Gap 7 mmol/L (5-15) Blood Urea Nitrogen 22 mg/dL (7-18) H Creatinine 0.9 MG/DL (0.55-1.30) Estimat Glomerular Filtration Rate > 60 mL/min (>60) Glucose Level 100 MG/DL (74-106) Calcium Level 9.3 MG/DL (8.5-10.1) Phosphorus Level 3.4 MG/DL (2.5-4.9) Magnesium Level 1.7 MG/DL (1.8-2.4) L Total Bilirubin 0.1 MG/DL (0.2-1.0) L Gamma Glutamyl Transpeptidase 66 U/L (5-85) Aspartate Amino Transf (AST/SGOT) 14 U/L (15-37) L Alanine Aminotransferase (ALT/SGPT) 19 U/L (12-78) Alkaline Phosphatase 118 U/L (46-116) H C-Reactive Protein, Quantitative 2.9 mg/dL (0.00-0.90) H Pro-B-Type Natriuretic Peptide 60 pg/mL (0-125) Total Protein 8.8 G/DL (6.4-8.2) H Albumin 2.6 G/DL (3.4-5.0) L Globulin 6.2 g/dL Albumin/Globulin Ratio 0.4 (1.0-2.7) L Current Medications Medications (Trade) Dose Ordered Sig/Mariel Route PRN Reason Start Time Stop Time Status Last Admin Dose Admin Acetaminophen (Tylenol) 650 mg Q4H PRN ORAL FEVER 07/09/18 11:45 08/08/18 11:44 Albuterol/ Ipratropium (Albuterol/ Ipratropium) 3 ml Q4H PRN HHN Shortness of Breath 07/09/18 11:45 07/14/18 11:44 Amlodipine Besylate (Norvasc) 10 mg DAILY GT 07/10/18 09:00 08/09/18 08:59 07/13/18 09:38 Carvedilol (Coreg) 25 mg TWICE A DAY GT 07/09/18 18:00 08/08/18 17:59 07/13/18 09:38 Clonidine HCl (Catapres Tab) 0.1 mg Q8H PRN GT For High Blood Pressure 07/09/18 11:45 08/08/18 11:44 Colistimethate Sodium (Colistin *inhalation use only*) 150 mg Q12HR@10,22 INH 07/12/18 13:00 07/19/18 12:59 07/13/18 09:46 Dextrose (Dextrose 50%) 25 ml Q30M PRN IV Hypoglycemia 07/09/18 11:45 08/08/18 11:41 Dextrose (Dextrose 50%) 50 ml Q30M PRN IV hypoglycemia 07/09/18 11:45 08/08/18 11:44 Heparin Sodium (Porcine) (Heparin 5000 units/ml) 5,000 units EVERY 12 HOURS SUBQ 07/09/18 21:00 08/08/18 20:59 07/13/18 09:51 Levetiracetam (Keppra) 1,500 mg Q12HR GT 07/10/18 21:00 08/08/18 13:00 10/9/18 09:38 Lorazepam (Ativan 2mg/ml 1ml) 2 mg Q2H PRN IV For Anxiety 07/09/18 11:45 07/16/18 11:44 Magnesium Sulfate 100 ml @ 100 mls/hr Q1H IVPB 07/13/18 10:30 07/13/18 13:29 07/13/18 10:59 Morphine Sulfate (Morphine Sulfate) 4 mg Q4H PRN IVP Severe Pain (Pain Scale 7-10) 07/09/18 11:45 07/16/18 11:44 Non-Formulary Medication (Non-Formulary Med) 1 ea DAILY TOPIC 07/10/18 13:00 08/09/18 12:59 07/13/18 09:39 Ondansetron HCl (Zofran) 4 mg Q6H PRN IVP Nausea & Vomiting 07/09/18 11:45 08/08/18 11:44 Pantoprazole (Protonix) 40 mg DAILY IV 07/10/18 09:00 08/09/18 08:59 07/13/18 09:38 Polyethylene Glycol (Miralax) 17 gm DAILYPRN PRN ORAL Constipation 07/09/18 11:45 08/08/18 11:44 Tigecycline 50 mg/ Dextrose 110 ml @ 220 mls/hr EVERY 12 HOURS IVPB 07/12/18 23:00 07/19/18 22:59 07/13/18 09:39 Rozina Burr M.D. Jul 13, 2018 11:49
[2018-07-13 12:00] VITALS: BP 120/72
--- NOTE | 2018-07-13 12:15 | Nephrology Progress Note ---
Assessment/Plan Problem List: (1) Chronic respiratory failure (2) Organic brain syndrome (3) HCAP (healthcare-associated pneumonia) (4) Anemia (5) Hyponatremia (6) UTI (urinary tract infection) Assessment Pneumonia- Low Na ? depletional corrected Anemia Trach to O2 UA noted Sz disorders Plan adjust BP meds Mag IV- antibiotics- pulm toilet stool softners Anemia perez Low Na perez per orders Subjective ROS Limited/Unobtainable: Yes Constitutional: Reports: malaise Objective Objective Last 24 Hour Vital Signs Date Time Temp Pulse Resp B/P (MAP) Pulse Ox O2 Delivery O2 Flow Rate FiO2 07/13/18 09:47 89 22 98 Trach Collar 6.0 28 07/13/18 09:38 85 116/77 07/13/18 09:38 85 116/77 07/13/18 09:32 28 07/13/18 09:32 86 22 97 Trach Collar 6.0 28 07/13/18 08:00 99.6 85 20 116/77 (90) 97 99.6 07/13/18 07:18 98 T-piece 6.0 28 07/13/18 07:18 T-piece 6.0 28 07/13/18 04:00 98.3 69 19 102/66 (78) 97 98.3 07/13/18 04:00 71 07/13/18 01:49 79 20 Trach Collar 6.0 28 07/13/18 01:46 78 20 98 Trach Collar 6.0 28 07/13/18 01:45 28 07/13/18 01:30 75 20 98 Trach Collar 6.0 28 07/13/18 01:28 98 T-piece 6.0 28 07/13/18 01:28 T-piece 6.0 28 07/13/18 00:00 98.7 72 18 131/77 (95) 98 98.7 07/13/18 00:00 84 07/12/18 21:00 T-piece 07/12/18 20:00 82 07/12/18 20:00 99.0 78 18 126/80 (95) 99 99.0 07/12/18 19:57 96 T-piece 6.0 28 07/12/18 19:57 T-piece 6.0 28 07/12/18 17:29 85 117/82 07/12/18 16:00 92 07/12/18 16:00 98.6 85 18 117/78 (91) 98 98.6 07/12/18 14:02 T-piece 6.0 28 07/12/18 14:01 98 T-piece 6.0 28 Intake and Output 07/12/18 07/13/18 18:59 06:59 Intake Total 55 ml Output Total 350 ml 700 ml Balance -295 ml -700 ml Tube Feeding 55 ml Output Urine Total 350 ml 700 ml # Voids 1 # Bowel Movements 1 Laboratory Tests 07/13/18 05:30: White Blood Count 13.5H, Red Blood Count 4.03L, Hemoglobin 11.1L, Hematocrit 33.5L, Mean Corpuscular Volume 83, Mean Corpuscular Hemoglobin 27.5, Mean Corpuscular Hemoglobin Concent 33.1, Red Cell Distribution Width 13.2, Platelet Count 279, Mean Platelet Volume 9.3, Neutrophils (%) (Auto) 68.5, Lymphocytes (% ) (Auto) 20.8, Monocytes (%) (Auto) 7.5, Eosinophils (%) (Auto) 2.6, Basophils ( %) (Auto) 0.6, Sodium Level 138, Potassium Level 4.2, Chloride Level 103, Carbon Dioxide Level 29, Anion Gap 7, Blood Urea Nitrogen 22H, Creatinine 0.9, Estimat Glomerular Filtration Rate > 60, Glucose Level 100, Calcium Level 9.3, Phosphorus Level 3.4, Magnesium Level 1.7L, Total Bilirubin 0.1L, Gamma Glutamyl Transpeptidase 66, Aspartate Amino Transf (AST/SGOT) 14L, Alanine Aminotransferase (ALT/SGPT) 19, Alkaline Phosphatase 118H, C-Reactive Protein, Quantitative 2.9H, Pro-B-Type Natriuretic Peptide 60, Total Protein 8.8H, Albumin 2.6L, Globulin 6.2, Albumin/Globulin Ratio 0.4L Height (Feet): 5 Height (Inches): 8.00 Weight (Pounds): 140 General Appearance: no apparent distress EENT: other - trach Cardiovascular: tachycardia Respiratory/Chest: decreased breath sounds Abdomen: distended Ian Lisa MD Jul 13, 2018 12:15
[2018-07-13] MEDS: Docusate 100mg/10ml Liq GT SCH ×2 (12:31→17:25)
--- NOTE | 2018-07-13 14:24 | General Progress Note ---
Assessment/Plan Problem List: (1) Fever ICD Codes: R50.9 - Fever, unspecified SNOMED: 071677019 (2) Chronic respiratory failure ICD Codes: J96.10 - Chronic respiratory failure, unspecified whether with hypoxia or hypercapnia SNOMED: 57779008 (3) Organic brain syndrome ICD Codes: F09 - Unspecified mental disorder due to known physiological condition SNOMED: 731081200 (4) Vegetative state ICD Codes: R40.3 - Persistent vegetative state SNOMED: 81092034 (5) Feeding by G-tube ICD Codes: Z93.1 - Gastrostomy status SNOMED: 528479420, 940240618 (6) Sepsis ICD Codes: A41.9 - Sepsis, unspecified organism SNOMED: 18472095 (7) Malnutrition ICD Codes: E46 - Unspecified protein-calorie malnutrition SNOMED: 73750060 (8) Sacral decubitus ulcer, stage IV ICD Codes: L89.154 - Pressure ulcer of sacral region, stage 4 SNOMED: 752196946, 269794961 (9) HCAP (healthcare-associated pneumonia) ICD Codes: J18.9 - Pneumonia, unspecified organism SNOMED: 521292269 Status: stable, progressing Assessment/Plan o2 pulm tx trach abx wound care cbc bmp dc if clear Subjective Constitutional: Reports: weakness Allergies: Coded Allergies: No Known Allergies (Unverified , 12/13/12) All Systems: reviewed and negative except above Subjective trach aerosol lethargic Objective Last 24 Hour Vital Signs Date Time Temp Pulse Resp B/P (MAP) Pulse Ox O2 Delivery O2 Flow Rate FiO2 07/13/18 12:54 T-piece 6.0 28 07/13/18 12:54 97 T-piece 6.0 28 07/13/18 12:00 98.8 89 20 120/72 (88) 97 98.8 07/13/18 12:00 85 07/13/18 09:47 89 22 98 Trach Collar 6.0 28 07/13/18 09:38 85 116/77 07/13/18 09:38 85 116/77 07/13/18 09:32 28 07/13/18 09:32 86 22 97 Trach Collar 6.0 28 07/13/18 09:00 T-piece 07/13/18 08:00 85 07/13/18 08:00 99.6 85 20 116/77 (90) 97 99.6 07/13/18 07:18 98 T-piece 6.0 28 07/13/18 07:18 T-piece 6.0 28 07/13/18 04:00 98.3 69 19 102/66 (78) 97 98.3 07/13/18 04:00 71 07/13/18 01:49 79 20 Trach Collar 6.0 28 07/13/18 01:46 78 20 98 Trach Collar 6.0 28 07/13/18 01:45 28 07/13/18 01:30 75 20 98 Trach Collar 6.0 28 07/13/18 01:28 98 T-piece 6.0 28 07/13/18 01:28 T-piece 6.0 28 07/13/18 00:00 98.7 72 18 131/77 (95) 98 98.7 07/13/18 00:00 84 07/12/18 21:00 T-piece 07/12/18 20:00 82 07/12/18 20:00 99.0 78 18 126/80 (95) 99 99.0 07/12/18 19:57 96 T-piece 6.0 28 07/12/18 19:57 T-piece 6.0 28 07/12/18 17:29 85 117/82 07/12/18 16:00 92 07/12/18 16:00 98.6 85 18 117/78 (91) 98 98.6 Intake and Output 07/12/18 07/13/18 19:00 07:00 Output Total 350 ml 700 ml Balance -350 ml -700 ml Output Urine Total 350 ml 700 ml # Voids 1 # Bowel Movements 1 Laboratory Tests 07/13/18 05:30: White Blood Count 13.5H, Red Blood Count 4.03L, Hemoglobin 11.1L, Hematocrit 33.5L, Mean Corpuscular Volume 83, Mean Corpuscular Hemoglobin 27.5, Mean Corpuscular Hemoglobin Concent 33.1, Red Cell Distribution Width 13.2, Platelet Count 279, Mean Platelet Volume 9.3, Neutrophils (%) (Auto) 68.5, Lymphocytes (% ) (Auto) 20.8, Monocytes (%) (Auto) 7.5, Eosinophils (%) (Auto) 2.6, Basophils ( %) (Auto) 0.6, Sodium Level 138, Potassium Level 4.2, Chloride Level 103, Carbon Dioxide Level 29, Anion Gap 7, Blood Urea Nitrogen 22H, Creatinine 0.9, Estimat Glomerular Filtration Rate > 60, Glucose Level 100, Calcium Level 9.3, Phosphorus Level 3.4, Magnesium Level 1.7L, Total Bilirubin 0.1L, Gamma Glutamyl Transpeptidase 66, Aspartate Amino Transf (AST/SGOT) 14L, Alanine Aminotransferase (ALT/SGPT) 19, Alkaline Phosphatase 118H, C-Reactive Protein, Quantitative 2.9H, Pro-B-Type Natriuretic Peptide 60, Total Protein 8.8H, Albumin 2.6L, Globulin 6.2, Albumin/Globulin Ratio 0.4L Height (Feet): 5 Height (Inches): 8.00 Weight (Pounds): 140 General Appearance: lethargic EENT: normal ENT inspection Neck: normal alignment Cardiovascular: normal peripheral pulses, normal rate, regular rhythm Respiratory/Chest: chest wall non-tender, lungs clear, normal breath sounds Abdomen: normal bowel sounds, non tender, soft Extremities: normal inspection Edema: no edema noted Arm (L), no edema noted Arm (R), no edema noted Leg (L), no edema noted Leg (R), no edema noted Pedal (L), no edema noted Pedal (R), no edema noted Generalized Neurologic: motor weakness Skin: normal pigmentation, warm/dry Frandy Eagle DO Jul 13, 2018 14:24
[2018-07-13 16:00] VITALS: BP 114/87
[2018-07-13 20:00] VITALS: BP 103/78
[2018-07-14] VITALS: BP 108/77
[2018-07-14 04:00] VITALS: BP 107/85
[2018-07-14 08:00] VITALS: BP 115/87
[2018-07-14] MEDS: Colistin for inhalation INH SCH (09:03)
[2018-07-14 09:24] LABS: BASOPHILS % (AUTO) 0.4 % (0.0-2.0); EOSINOPHILS % (AUTO) 1.6 % (0.0-3.0); HEMATOCRIT 33.2 % (42.0-52.0); HEMOGLOBIN 10.8 G/DL (14.2-18.0); LYMPHOCYTES % (AUTO) 16.9 % (20.0-45.0); MEAN CORPUSCULAR VOLUME 85 FL (80-99); MONOCYTES % (AUTO) 5.6 % (1.0-10.0); NEUTROPHILS % (AUTO) 75.5 % (45.0-75.0); PLATELET COUNT 300 K/UL (150-450); RED BLOOD COUNT 3.89 M/UL (4.70-6.10); RED CELL DISTRIBUTION WIDTH 13.5 % (11.6-14.8); WHITE BLOOD COUNT 13.1 K/UL (4.8-10.8)
[2018-07-14 09:37] LABS: ALANINE AMINOTRANSFERASE 18 U/L (12-78); ALBUMIN 2.7 G/DL (3.4-5.0); ALBUMIN/GLOBULIN RATIO 0.4 (1.0-2.7); ALKALINE PHOSPHATASE 126 U/L (46-116); ANION GAP 8 mmol/L (5-15); ASPARTATE AMINO TRANSFERASE 11 U/L (15-37); BILIRUBIN,TOTAL < 0.1 MG/DL (0.2-1.0); BLOOD UREA NITROGEN 25 mg/dL (7-18); CALCIUM 9.4 MG/DL (8.5-10.1); CARBON DIOXIDE 29 MMOL/L (21-32); CHLORIDE 102 MMOL/L (98-107); CREATININE 0.9 MG/DL (0.55-1.30); PHOSPHORUS 4.3 MG/DL (2.5-4.9); POTASSIUM 4.5 MMOL/L (3.5-5.1); SODIUM 138 MMOL/L (136-145)
--- NOTE | 2018-07-14 09:46 | Nephrology Progress Note ---
Assessment/Plan Problem List: (1) Chronic respiratory failure (2) Organic brain syndrome (3) HCAP (healthcare-associated pneumonia) (4) Anemia (5) Hyponatremia (6) UTI (urinary tract infection) Assessment Pneumonia- Low Na ? depletional corrected Anemia Trach to O2 UA noted Sz disorders Plan adjust BP meds Mag IV- antibiotics- pulm toilet stool softners per orders Subjective ROS Limited/Unobtainable: Yes Objective Objective Last 24 Hour Vital Signs Date Time Temp Pulse Resp B/P (MAP) Pulse Ox O2 Delivery O2 Flow Rate FiO2 07/14/18 09:02 85 22 96 Trach Collar 6.0 28 07/14/18 09:02 28 07/14/18 08:00 98.0 89 20 115/87 (96) 99 98.0 07/14/18 08:00 83 07/14/18 07:00 98 T-piece 6.0 28 07/14/18 07:00 T-piece 6.0 28 07/14/18 04:50 83 07/14/18 04:00 98.8 87 18 107/85 (92) 100 98.8 07/14/18 02:00 95 T-piece 6.0 28 07/14/18 02:00 T-piece 6.0 28 07/14/18 00:00 98.4 77 18 108/77 (87) 100 98.4 07/13/18 23:34 83 07/13/18 22:19 88 20 98 Trach Collar 6.0 28 07/13/18 22:09 90 22 95 Trach Collar 6.0 28 07/13/18 22:09 28 07/13/18 21:00 T-piece 07/13/18 20:06 96 T-piece 6.0 28 07/13/18 20:06 T-piece 6.0 28 07/13/18 20:00 83 07/13/18 20:00 98.1 89 18 103/78 (86) 96 98.1 07/13/18 17:25 93 114/87 07/13/18 16:00 91 07/13/18 16:00 98.4 93 20 114/87 (96) 99 98.4 07/13/18 12:54 T-piece 6.0 28 07/13/18 12:54 97 T-piece 6.0 28 07/13/18 12:00 98.8 89 20 120/72 (88) 97 98.8 07/13/18 12:00 85 07/13/18 09:47 89 22 98 Trach Collar 6.0 28 Intake and Output 07/13/18 07/14/18 19:00 07:00 Output Total 900 ml 800 ml Balance -900 ml -800 ml Output Urine Total 900 ml 800 ml # Bowel Movements 1 1 Laboratory Tests 07/14/18 08:10: White Blood Count [Pending], Red Blood Count [Pending], Hemoglobin [Pending], Hematocrit [Pending], Mean Corpuscular Volume [Pending], Mean Corpuscular Hemoglobin [Pending], Mean Corpuscular Hemoglobin Concent [Pending], Red Cell Distribution Width [Pending], Platelet Count [Pending], Mean Platelet Volume [ Pending], Neutrophils (%) (Auto) [Pending], Lymphocytes (%) (Auto) [Pending], Monocytes (%) (Auto) [Pending], Eosinophils (%) (Auto) [Pending], Basophils (%) (Auto) [Pending], Sodium Level 138, Potassium Level 4.5, Chloride Level 102, Carbon Dioxide Level 29, Anion Gap 8, Blood Urea Nitrogen 25H, Creatinine 0.9, Estimat Glomerular Filtration Rate > 60, Glucose Level 105, Calcium Level 9.4, Phosphorus Level 4.3, Magnesium Level 1.7L, Total Bilirubin < 0.1L, Aspartate Amino Transf (AST/SGOT) 11L, Alanine Aminotransferase (ALT/SGPT) 18, Alkaline Phosphatase 126H, Total Protein 9.1H, Albumin 2.7L, Globulin 6.4, Albumin/ Globulin Ratio 0.4L Height (Feet): 5 Height (Inches): 8.00 Weight (Pounds): 143 EENT: other - trach collar Cardiovascular: tachycardia Respiratory/Chest: decreased breath sounds Abdomen: soft Ian Lisa MD Jul 14, 2018 09:46
[2018-07-14] MEDS: Carvedilol 25mg Tab GT SCH (09:52)
[2018-07-14] MEDS: Docusate 100mg/10ml Liq GT SCH ×2 (09:52→13:05)
[2018-07-14] MEDS: Tigecycline 50 MG in D5W 110 ML IVPB SCH (09:53)
[2018-07-14] MEDS: levETIRAcetam 500mg/5ml Liquid GT SCH (09:56)
[2018-07-14] MEDS: [UNRECOGNIZED DRUG - OTHER] TOPIC SCH (09:56)
[2018-07-14] MEDS: Heparin 5000 units/ml inj SUBQ SCH (09:57)
--- NOTE | 2018-07-14 11:15 | Pulmonology Progress Note ---
Assessment/Plan Problems: (1) Sepsis (2) HCAP (healthcare-associated pneumonia) (3) Severe protein-calorie malnutrition (4) Feeding by G-tube (5) Vegetative state (6) Organic brain syndrome Assessment/Plan no new events improving continue abx check cultures, sputum culture reviewed wound care for deep stage 4 decubiti tolerating feeding all reviewed aspiration precaution d/w Dr Swift dvt prophylaxis Subjective ROS Limited/Unobtainable: Yes Constitutional: Reports: no symptoms HEENT: Repors: no symptoms Respiratory: Reports: no symptoms Allergies: Coded Allergies: No Known Allergies (Unverified , 12/13/12) Objective Last 24 Hour Vital Signs Date Time Temp Pulse Resp B/P (MAP) Pulse Ox O2 Delivery O2 Flow Rate FiO2 07/14/18 09:52 85 115/87 07/14/18 09:12 85 18 98 Trach Collar 6.0 28 07/14/18 09:02 85 22 96 Trach Collar 6.0 28 07/14/18 09:02 28 07/14/18 09:00 T-piece 07/14/18 08:00 98.0 89 20 115/87 (96) 99 98.0 07/14/18 08:00 83 07/14/18 07:00 98 T-piece 6.0 28 07/14/18 07:00 T-piece 6.0 28 07/14/18 04:50 83 07/14/18 04:00 98.8 87 18 107/85 (92) 100 98.8 07/14/18 02:00 95 T-piece 6.0 28 07/14/18 02:00 T-piece 6.0 28 07/14/18 00:00 98.4 77 18 108/77 (87) 100 98.4 07/13/18 23:34 83 07/13/18 22:19 88 20 98 Trach Collar 6.0 28 07/13/18 22:09 90 22 95 Trach Collar 6.0 28 07/13/18 22:09 28 07/13/18 21:00 T-piece 07/13/18 20:06 96 T-piece 6.0 28 07/13/18 20:06 T-piece 6.0 28 07/13/18 20:00 83 07/13/18 20:00 98.1 89 18 103/78 (86) 96 98.1 07/13/18 17:25 93 114/87 07/13/18 16:00 91 07/13/18 16:00 98.4 93 20 114/87 (96) 99 98.4 07/13/18 12:54 T-piece 6.0 28 07/13/18 12:54 97 T-piece 6.0 28 07/13/18 12:00 98.8 89 20 120/72 (88) 97 98.8 07/13/18 12:00 85 Intake and Output 07/13/18 07/14/18 19:00 07:00 Output Total 900 ml 800 ml Balance -900 ml -800 ml Output Urine Total 900 ml 800 ml # Bowel Movements 1 1 General Appearance: WD/WN HEENT: normocephalic, atraumatic Respiratory/Chest: chest wall non-tender, lungs clear, crackles/rales Cardiovascular: normal peripheral pulses, normal rate Abdomen: normal bowel sounds, no organomegaly Genitourinary: normal external genitalia Skin: no rash Neurologic/Psychiatric: bender hand II-XII grossly normal, no motor/sensory deficits Laboratory Tests 07/14/18 08:10: White Blood Count 13.1H, Red Blood Count 3.89L, Hemoglobin 10.8L, Hematocrit 33.2L, Mean Corpuscular Volume 85, Mean Corpuscular Hemoglobin 27.7, Mean Corpuscular Hemoglobin Concent 32.5, Red Cell Distribution Width 13.5, Platelet Count 300, Mean Platelet Volume 9.1, Neutrophils (%) (Auto) 75.5H, Lymphocytes ( %) (Auto) 16.9L, Monocytes (%) (Auto) 5.6, Eosinophils (%) (Auto) 1.6, Basophils (%) (Auto) 0.4, Sodium Level 138, Potassium Level 4.5, Chloride Level 102, Carbon Dioxide Level 29, Anion Gap 8, Blood Urea Nitrogen 25H, Creatinine 0.9, Estimat Glomerular Filtration Rate > 60, Glucose Level 105, Calcium Level 9.4, Phosphorus Level 4.3, Magnesium Level 1.7L, Total Bilirubin < 0.1L, Aspartate Amino Transf (AST/SGOT) 11L, Alanine Aminotransferase (ALT/SGPT) 18, Alkaline Phosphatase 126H, Total Protein 9.1H, Albumin 2.7L, Globulin 6.4, Albumin/Globulin Ratio 0.4L Current Medications Medications (Trade) Dose Ordered Sig/Mariel Route PRN Reason Start Time Stop Time Status Last Admin Dose Admin Acetaminophen (Tylenol) 650 mg Q4H PRN ORAL FEVER 07/09/18 11:45 08/08/18 11:44 Albuterol/ Ipratropium (Albuterol/ Ipratropium) 3 ml Q4H PRN HHN Shortness of Breath 07/09/18 11:45 07/14/18 11:44 Amlodipine Besylate (Norvasc) 2.5 mg DAILY GT 07/15/18 09:00 08/09/18 08:59 Carvedilol (Coreg) 25 mg TWICE A DAY GT 07/09/18 18:00 08/08/18 17:59 07/14/18 09:52 Clonidine HCl (Catapres Tab) 0.1 mg Q6H PRN GT For High BP 160 syst 07/13/18 12:30 08/08/18 11:44 Colistimethate Sodium (Colistin *inhalation use only*) 150 mg Q12HR@10,22 INH 07/12/18 13:00 07/19/18 12:59 07/14/18 09:03 Dextrose (Dextrose 50%) 25 ml Q30M PRN IV Hypoglycemia 07/09/18 11:45 08/08/18 11:41 Dextrose (Dextrose 50%) 50 ml Q30M PRN IV hypoglycemia 07/09/18 11:45 08/08/18 11:44 Docusate Sodium (Colace) 100 mg THREE TIMES A DAY GT 07/13/18 13:00 08/12/18 12:59 07/14/18 09:52 Heparin Sodium (Porcine) (Heparin 5000 units/ml) 5,000 units EVERY 12 HOURS SUBQ 07/09/18 21:00 08/08/18 20:59 07/14/18 09:57 Lansoprazole (Prevacid) 30 mg DAILY GT 07/14/18 09:45 08/13/18 09:44 Levetiracetam (Keppra) 1,500 mg Q12HR GT 07/10/18 21:00 08/08/18 13:00 07/14/18 09:56 Lorazepam (Ativan 2mg/ml 1ml) 2 mg Q2H PRN IV For Anxiety 07/09/18 11:45 07/16/18 11:44 Magnesium Sulfate 100 ml @ 100 mls/hr Q1H IVPB 07/14/18 10:00 07/14/18 11:59 Morphine Sulfate (Morphine Sulfate) 4 mg Q4H PRN IVP Severe Pain (Pain Scale 7-10) 07/09/18 11:45 07/16/18 11:44 Non-Formulary Medication (Non-Formulary Med) 1 ea DAILY TOPIC 07/10/18 13:00 08/09/18 12:59 07/14/18 09:56 Ondansetron HCl (Zofran) 4 mg Q6H PRN IVP Nausea & Vomiting 07/09/18 11:45 08/08/18 11:44 Polyethylene Glycol (Miralax) 17 gm DAILYPRN PRN ORAL Constipation 07/09/18 11:45 08/08/18 11:44 Tigecycline 50 mg/ Dextrose 110 ml @ 220 mls/hr EVERY 12 HOURS IVPB 07/12/18 23:00 07/19/18 22:59 07/14/18 09:53 Stormy Gotti MD Jul 14, 2018 11:15
[2018-07-14 12:00] VITALS: BP 126/70
--- NOTE | 2018-07-14 13:53 | General Progress Note ---
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 - Unspecified mental disorder due to known physiological condition SNOMED: 377155241 (4) Vegetative state ICD Codes: R40.3 - Persistent vegetative state SNOMED: 68242365 (5) Feeding by G-tube ICD Codes: Z93.1 - Gastrostomy status SNOMED: 059259067, 146571406 (6) Sepsis ICD Codes: A41.9 - Sepsis, unspecified organism SNOMED: 83598508 (7) Malnutrition ICD Codes: E46 - Unspecified protein-calorie malnutrition SNOMED: 56099754 (8) Sacral decubitus ulcer, stage IV ICD Codes: L89.154 - Pressure ulcer of sacral region, stage 4 SNOMED: 286590497, 855135729 (9) HCAP (healthcare-associated pneumonia) ICD Codes: J18.9 - Pneumonia, unspecified organism SNOMED: 630268199 Status: unchanged Assessment/Plan o2 pulm tx trach abx wound care cbc bmp dc if clear Subjective Constitutional: Reports: weakness Allergies: Coded Allergies: No Known Allergies (Unverified , 12/13/12) All Systems: reviewed and negative except above Subjective trach aerosol lethargic Objective Last 24 Hour Vital Signs Date Time Temp Pulse Resp B/P (MAP) Pulse Ox O2 Delivery O2 Flow Rate FiO2 07/14/18 12:50 97 T-piece 6.0 28 07/14/18 12:50 T-piece 6.0 28 07/14/18 12:00 98.2 77 22 126/70 (88) 98 98.2 07/14/18 12:00 86 07/14/18 09:53 89 115/87 07/14/18 09:52 85 115/87 07/14/18 09:12 85 18 98 Trach Collar 6.0 28 07/14/18 09:02 85 22 96 Trach Collar 6.0 28 07/14/18 09:02 28 07/14/18 09:00 T-piece 07/14/18 08:00 98.0 89 20 115/87 (96) 99 98.0 07/14/18 08:00 83 07/14/18 07:00 98 T-piece 6.0 28 07/14/18 07:00 T-piece 6.0 28 07/14/18 04:50 83 07/14/18 04:00 98.8 87 18 107/85 (92) 100 98.8 07/14/18 02:00 95 T-piece 6.0 28 07/14/18 02:00 T-piece 6.0 28 07/14/18 00:00 98.4 77 18 108/77 (87) 100 98.4 07/13/18 23:34 83 07/13/18 22:19 88 20 98 Trach Collar 6.0 28 07/13/18 22:09 90 22 95 Trach Collar 6.0 28 07/13/18 22:09 28 07/13/18 21:00 T-piece 07/13/18 20:06 96 T-piece 6.0 28 07/13/18 20:06 T-piece 6.0 28 07/13/18 20:00 83 07/13/18 20:00 98.1 89 18 103/78 (86) 96 98.1 07/13/18 17:25 93 114/87 07/13/18 16:00 91 07/13/18 16:00 98.4 93 20 114/87 (96) 99 98.4 Intake and Output 07/13/18 07/14/18 19:00 07:00 Output Total 900 ml 800 ml Balance -900 ml -800 ml Output Urine Total 900 ml 800 ml # Bowel Movements 1 1 Laboratory Tests 07/14/18 08:10: White Blood Count 13.1H, Red Blood Count 3.89L, Hemoglobin 10.8L, Hematocrit 33.2L, Mean Corpuscular Volume 85, Mean Corpuscular Hemoglobin 27.7, Mean Corpuscular Hemoglobin Concent 32.5, Red Cell Distribution Width 13.5, Platelet Count 300, Mean Platelet Volume 9.1, Neutrophils (%) (Auto) 75.5H, Lymphocytes ( %) (Auto) 16.9L, Monocytes (%) (Auto) 5.6, Eosinophils (%) (Auto) 1.6, Basophils (%) (Auto) 0.4, Sodium Level 138, Potassium Level 4.5, Chloride Level 102, Carbon Dioxide Level 29, Anion Gap 8, Blood Urea Nitrogen 25H, Creatinine 0.9, Estimat Glomerular Filtration Rate > 60, Glucose Level 105, Calcium Level 9.4, Phosphorus Level 4.3, Magnesium Level 1.7L, Total Bilirubin < 0.1L, Aspartate Amino Transf (AST/SGOT) 11L, Alanine Aminotransferase (ALT/SGPT) 18, Alkaline Phosphatase 126H, Total Protein 9.1H, Albumin 2.7L, Globulin 6.4, Albumin/Globulin Ratio 0.4L Height (Feet): 5 Height (Inches): 8.00 Weight (Pounds): 143 General Appearance: lethargic EENT: normal ENT inspection Neck: normal alignment Cardiovascular: normal peripheral pulses, normal rate, regular rhythm Respiratory/Chest: chest wall non-tender, lungs clear, normal breath sounds Abdomen: normal bowel sounds, non tender, soft Extremities: normal inspection Edema: no edema noted Arm (L), no edema noted Arm (R), no edema noted Leg (L), no edema noted Leg (R), no edema noted Pedal (L), no edema noted Pedal (R), no edema noted Generalized Neurologic: motor weakness Skin: normal pigmentation, warm/dry Frandy Eagle DO Jul 14, 2018 13:53
[2018-07-14] MEDS ORDERED: NORVASC2.5 MG GT (14:04)
[2018-07-14] MEDS ORDERED: CLONIDINE0.1 MG GT (14:09)
[2018-07-14] MEDS ORDERED: COLISTIMETHATE150 MG IH (14:12)
[2018-07-14] MEDS ORDERED: DOCUSATE SODIU100 M2 GT (14:15)
[2018-07-14] MEDS ORDERED: HEPARIN SO5000 UNIT2 SUBQ (14:16)
[2018-07-14] MEDS ORDERED: LANSOPRAZOLE30 M2 PEG (14:17)
[2018-07-14] MEDS ORDERED: KEPPRA1000 MG GT (14:19)
[2018-07-14] MEDS ORDERED: POLYETHYLENE GL17 GM ORAL (14:22)
[2018-07-14] MEDS ORDERED: TYGACIL50 MG IVPB (14:23)
[2018-07-14] MEDS ORDERED: LORAZEPAM2 MG ORAL (14:24)
--- NOTE | 2018-07-14 15:06 | Diagnostic Imaging Report ---
APPROVED REPORT CPT Code: 27076 Present Symptoms Comments: BILATERAL LEGS PAIN. RIGHT LEG: Venous imaging reveals chronic thrombus in the superficial femoral vein. Imaging also reveals patency of the common femoral and calf veins. The greater saphenous vein is also within normal limits. Doppler indicates normal spontaneous flow within these segments. LEFT LEG: Technically difficult study due to patient's contracture position common femoral vein and superficial femoral vein proximal not visualized. Venous imaging reveals a patent deep venous system. There is no evidence of thrombus within the femoral, popliteal or tibial segments. The greater saphenous vein is also within normal limits. Doppler indicates normal spontaneous flow within these segments.
[2018-07-14] MEDS ORDERED: NS 275ml ONE (15:23)
[2018-07-14] MEDS ORDERED: Sterile Water Irrig 1000ml IRRIG ONE (15:23)
[2018-07-14] MEDS ORDERED: Tubing IV Secondary IV ONE (15:23)
--- NOTE | 2018-07-15 11:47 | Discharge Summary ---
Discharge Summary Discharge Summary _ DATE OF ADMISSION: 07/09/2018 DATE OF DISCHARGE: 07/14/2018 CONSULTANTS: Dr. Stormy Swift BRIEF HOSPITAL COURSE: Patient's a 58-year-old male, from subacute nursing facility, presented to the ER for complaints of fever, shortness of breath and lethargy. He has history of cardiomyopathy, liver cirrhosis, type 2 diabetes, hypertension, chronic respiratory failure with tracheostomy, anemia, GERD, epilepsy, encephalopathy, anoxic brain damage and cardiac arrest. Chest x-ray done as outpatient revealed density on the left base compatible with infiltrates. Blood work done showed elevated WBC at 17. Patient's nonverbal. History was obtained from long term documentation. According to EMS, sputum/tube feeding was noted in the T-bar connection. There was concern for aspiration. He was brought to ED for further evaluation. On evaluation at ED, blood work showed elevated WBC of 17. Sodium 132. Chest x -ray showed possible left lower lung infiltrate. EKG was in normal sinus rhythm with no signs of ischemia. He was then admitted for evaluation of healthcare associated pneumonia. ID and diesel trailer mechanic was consulted. He was started on IV Rocephin and vancomycin. He was placed on nebulizer treatment. He was given supplemental O2. Microwave Radio Technician was consulted for evaluation of hyponatremia. Blood pressure medications were titrated. He was given magnesium supplements. He came in with stage IV sacral decubitus ulcer. Surgery was called to evaluate and assist with care. There was no sign of active infection. He was given wound care. He was placed on a special mattress. He was ordered frequent repositioning and offloading. 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 Negative for acute DVT. Patient has history of chronic [place] catheter and urinalysis showed 5-10 WBC, 2 + leukocyte esterase, nitrate negative. Urine culture showed growth of gram- negative rods. Sputum culture showed growth of gram-negative rods. Vancomycin and Rocephin was discontinued. He was given Zosyn. Sputum culture showed growth of MDR Klebsiella pneumonia. Zosyn was changed to tigecycline and inhaled colistin was admitted. Urine culture showed growth of Proteus. WBC was elevated and patient had ongoing fevers, ceftriaxone was added. He eventually defervesced. Surveillance chest x-ray showed no acute disease. He was saturating well on 28% FiO2. He was then discharged back to SNF. FINAL DIAGNOSES: Sepsis possibly secondary to healthcare associated pneumonia Severe protein calorie malnutrition Vegetative state Organic brain syndrome Encephalopathy Feeding via G-tube Sacral decubitus ulcer stage IV, present on admission Hyponatremia Anemia Urinary tract infection with Proteus Seizure disorder Cardiomyopathy Liver cirrhosis Hypertension DISPOSITION: Patient was discharged to SNF. DISCHARGE MEDICATIONS: Refer to Discharge Medication List. I have been assigned to dictate discharge summary on this account, and I was not involved in the patient's management. Flower Serrano NP Jul 15, 2018 11:47
== END 2018-07-14 15:24 | DRG 871 ==
LOC: EDBD 09:33 → EDUNIT# 09:33 → EMR 10:20 → 2E 12:03 → EDBEDREQSVC 12:09 → EDBEDREQ 12:25
DX: A41.9 Sepsis, unspecified organism (principal); L89.154 Pressure ulcer of sacral region, stage 4; J18.9 Pneumonia, unspecified organism; E43 Unspecified severe protein-calorie malnutrition; J15.0 Pneumonia due to Klebsiella pneumoniae; J96.10 Chronic respiratory failure, unspecified whether with hypoxia or hypercapnia; E87.1 Hypo-osmolality and hyponatremia; G93.1 Anoxic brain damage, not elsewhere classified; R40.3 Persistent vegetative state; G93.40 Encephalopathy, unspecified; N39.0 Urinary tract infection, site not specified; I42.9 Cardiomyopathy, unspecified; C71.4 Malignant neoplasm of occipital lobe; Z43.1 Encounter for attention to gastrostomy; Z43.0 Encounter for attention to tracheostomy; D64.9 Anemia, unspecified; E11.9 Type 2 diabetes mellitus without complications; I10 Essential (primary) hypertension; K21.9 Gastro-esophageal reflux disease without esophagitis; G40.909 Epilepsy, unspecified, not intractable, without status epilepticus; Z86.74 Personal history of sudden cardiac arrest; Z16.24 Resistance to multiple antibiotics; F09 Unspecified mental disorder due to known physiological condition; B96.4 Proteus (mirabilis) (morganii) as the cause of diseases classified elsewhere; K74.60 Unspecified cirrhosis of liver; Z66 Do not resuscitate
CPT/HCPCS: 36415; 71045; 80048; 80053; 80202; 81001; 82607; 82728; 82746; 82977; 83540; 83550; 83605; 83735; 83880; 83930; 83935; 84100; 84300; 84550; 85007; 85025; 86140; 87040; 87070; 87081; 87086; 87181; 87205; 93005; 93970; 94640; 94664; 94760; 96365; 96368; 97803; 99285